=== PATIENT | male | born 1970 | race Caucasian/White ===

== ENCOUNTER 2018-08-16 18:35 | Emergency (ER) | payer OTHER ==
[2018-08-16 18:44] VITALS: RESP 18
[2018-08-16] MEDS ORDERED: ONDANSETRON 4 MG/2 ML VIAL IVP STA (19:03)
[2018-08-16] MEDS ORDERED: SODIUM CHLORIDE 0.9% 1,000 ML IV STA (19:03)
[2018-08-16] MEDS ORDERED: KETOROLAC 30 MG/ML 1 ML VIAL IVP STA (19:03)
--- NOTE | 2018-08-16 19:09 | ED ---
General Adult HPI - General Chief complaint: Abdominal Pain Stated complaint: Abd Pain & Knee Pain Time Seen by Provider: 08/16/18 18:48 Source: patient, RN notes reviewed Mode of arrival: ambulatory Limitations: no limitations - History of Present Illness Initial comments: 48-year-old male with a past medical history of COPD presents to the emergency department for a chief complaint of right flank pain 2 days. Patient states the pain started intermittently that has been constant for the past 8 hours. He describes it as a sharp stabbing pain. He denies any radiating pain into the abdomen or testicle. Patient denies any history of kidney stones. Patient states his urine has been foul-smelling and he has experienced some dysuria. He states he had burning with urination yesterday but today it is feeling much better. He does admit to vomiting twice yesterday, denies vomiting today. He does admit to nausea. He denies any fevers or chills at home. Patient also complaining of left knee pain. He states he hit his knee against his cement deck. Patient states bending the knee makes the pain worse. He states the pain is on the lateral aspect of the left knee. He denies any posterior knee pain.Patient has no other complaints at this time including shortness of breath , chest pain, abdominal pain, nausea or vomiting, headache, or visual changes. - Related Data Home Medications Medication Instructions Recorded Confirmed Acetaminophen [Tylenol] 1,000 mg PO Q4-6H PRN 08/16/18 08/16/18 Ibuprofen [Motrin] 800 mg PO Q8H PRN 08/16/18 08/16/18 Previous Rx's Medication Instructions Recorded Ciprofloxacin HCl [Cipro] 500 mg PO Q12HR 10 Days tablet 08/16/18 Allergies Allergy/AdvReac Type Severity Reaction Status Date / Time No Known Allergies Allergy Verified 08/16/18 19:16 Review of Systems ROS Statement: Those systems with pertinent positive or pertinent negative responses have been documented in the HPI. ROS Other: All systems not noted in ROS Statement are negative. Past Medical History Past Medical History: COPD History of Any Multi-Drug Resistant Organisms: None Reported Additional Past Surgical History / Comment(s): wire mesh in head on R side Past Psychological History: Depression Smoking Status: Current every day smoker Past Alcohol Use History: Occasional Past Drug Use History: None Reported General Exam Limitations: no limitations General appearance: alert, in no apparent distress Head exam: Present: atraumatic, normocephalic, normal inspection Eye exam: Present: normal appearance, PERRL, EOMI. Absent: scleral icterus, conjunctival injection, periorbital swelling ENT exam: Present: normal exam, mucous membranes moist Neck exam: Present: normal inspection, full ROM. Absent: tenderness, meningismus, lymphadenopathy Respiratory exam: Present: normal lung sounds bilaterally. Absent: respiratory distress, wheezes, rales, rhonchi, stridor Cardiovascular Exam: Present: regular rate, normal rhythm, normal heart sounds. Absent: systolic murmur, diastolic murmur, rubs, gallop, clicks GI/Abdominal exam: Present: soft, normal bowel sounds. Absent: distended, tenderness, guarding, rebound, rigid Extremities exam: Present: tenderness (Tenderness noted to the left lateral knee ), normal capillary refill (Capillary refill less than 2 seconds, DP pulse 2+ in the left lower extremity), other (Sensation intact in the left lower extremity). Absent: full ROM (Patient has full extension, 90 flexion of the left knee), joint swelling (No significant edema erythema noted of the left knee. There is minor abrasion noted to the left anterior knee), calf tenderness (No tenderness to the calf, negative Homans sign, no posterior knee tenderness, no increased warmth, erythema, or edema noted of the left lower extremity) Back exam: Present: CVA tenderness (R) (Right CVA tenderness noted). Absent: CVA tenderness (L), vertebral tenderness Neurological exam: Present: alert, oriented X3, CN II-XII intact Psychiatric exam: Present: normal affect, normal mood Course Vital Signs 08/16/18 08/16/18 18:39 22:20 Temperature 98 F 97.9 F Pulse Rate 80 72 Respiratory 18 18 Rate Blood Pressure 130/60 121/86 O2 Sat by Pulse 98 97 Oximetry Medical Decision Making - Medical Decision Making 48-year-old male presents to the emergency department for a chief complaint of right flank pain 2 days. Patient states that the pain was intermittent but has been constant for the past 8 hours. As a sharp stabbing pain and does not radiate into his abdomen or testicle. No history of kidney stones. However patient does state he had foul-smelling urine with dysuria noted yesterday. Patient denies any pain in the prostate CBC and CMP are unremarkable. Urine does show large leukocyte esterase with 36 white cells, no evidence of squamous cells. Patient may have a pyelonephritis. Vitals are within acceptable limits , patient does not meet sepsis criteria. CT of the abdomen and pelvis was ordered which showed no renal stone or obstruction. There is a small right pleural effusion noted. I did discuss this with patient and he will follow up with primary care for this. Patient will be given Cipro to cover for possible pyelonephritis. Patient will follow up with urology for right flank pain. Discussed returning if he has any worsening flank pain. Patient is also complaining of left knee pain after hitting it on his cement porch. X-ray shows a small joint effusion. There is no erythema or edema noted of the left knee. Patient has 90 flexion of the left knee with full extension, neurovascular intact. Did recommend putting on a knee immobilizer at this time is patient does have a small joint effusion but he refuses this and would rather Roman wrap. He will follow up with orthopedics for this. - Lab Data Result diagrams: 08/16/18 19:15 08/16/18 19:15 Lab Results 08/16/18 08/16/18 08/16/18 Range/Units 19:15 19:15 19:15 WBC 9.7 (3.8-10.6) k/uL RBC 4.38 (4.30-5.90) m/uL Hgb 14.3 (13.0-17.5) gm/dL Hct 41.9 (39.0-53.0) % MCV 95.7 (80.0-100.0) fL MCH 32.6 (25.0-35.0) pg MCHC 34.0 (31.0-37.0) g/dL RDW 13.4 (11.5-15.5) % Plt Count 265 (150-450) k/uL Neutrophils % 74 % Lymphocytes % 16 % Monocytes % 5 % Eosinophils % 2 % Basophils % 1 % Neutrophils # 7.2 (1.3-7.7) k/uL Lymphocytes # 1.6 (1.0-4.8) k/uL Monocytes # 0.5 (0-1.0) k/uL Eosinophils # 0.1 (0-0.7) k/uL Basophils # 0.1 (0-0.2) k/uL PT (9.0-12.0) sec INR (<1.2) APTT (22.0-30.0) sec Sodium 136 L (137-145) mmol/L Potassium 4.3 (3.5-5.1) mmol/L Chloride 104 (98-107) mmol/L Carbon Dioxide 22 (22-30) mmol/L Anion Gap 10 mmol/L BUN 15 (9-20) mg/dL Creatinine 1.01 (0.66-1.25) mg/dL Est GFR (CKD-EPI)AfAm >90 (>60 ml/min/1.73 sqM) Est GFR (CKD-EPI)NonAf 87 (>60 ml/min/1.73 sqM) Glucose 116 H (74-99) mg/dL Plasma Lactic Acid Hung (0.7-2.0) mmol/L Calcium 8.9 (8.4-10.2) mg/dL Total Bilirubin 1.1 (0.2-1.3) mg/dL AST 58 (17-59) U/L ALT 58 (21-72) U/L Alkaline Phosphatase 81 (38-126) U/L Total Protein 6.8 (6.3-8.2) g/dL Albumin 3.7 (3.5-5.0) g/dL Urine Color Yellow Urine Appearance Clear (Clear) Urine pH 6.0 (5.0-8.0) Ur Specific [place] 1.014 (1.001-1.035) Urine Protein Trace H (Negative) Urine Glucose (UA) Negative (Negative) Urine Ketones Negative (Negative) Urine Blood Negative (Negative) Urine Nitrite Negative (Negative) Urine Bilirubin Negative (Negative) Urine Urobilinogen <2.0 (<2.0) mg/dL Ur Leukocyte Esterase Large H (Negative) Urine RBC <1 (0-5) /hpf Urine WBC 36 H (0-5) /hpf Urine Bacteria Rare H (None) /hpf Urine Mucus Rare H (None) /hpf 08/16/18 08/16/18 Range/Units 19:15 19:15 WBC (3.8-10.6) k/uL RBC (4.30-5.90) m/uL Hgb (13.0-17.5) gm/dL Hct (39.0-53.0) % MCV (80.0-100.0) fL MCH (25.0-35.0) pg MCHC (31.0-37.0) g/dL RDW (11.5-15.5) % Plt Count (150-450) k/uL Neutrophils % % Lymphocytes % % Monocytes % % Eosinophils % % Basophils % % Neutrophils # (1.3-7.7) k/uL Lymphocytes # (1.0-4.8) k/uL Monocytes # (0-1.0) k/uL Eosinophils # (0-0.7) k/uL Basophils # (0-0.2) k/uL PT 9.4 (9.0-12.0) sec INR 0.8 (<1.2) APTT 26.0 (22.0-30.0) sec Sodium (137-145) mmol/L Potassium (3.5-5.1) mmol/L Chloride (98-107) mmol/L Carbon Dioxide (22-30) mmol/L Anion Gap mmol/L BUN (9-20) mg/dL Creatinine (0.66-1.25) mg/dL Est GFR (CKD-EPI)AfAm (>60 ml/min/1.73 sqM) Est GFR (CKD-EPI)NonAf (>60 ml/min/1.73 sqM) Glucose (74-99) mg/dL Plasma Lactic Acid Hung 1.1 (0.7-2.0) mmol/L Calcium (8.4-10.2) mg/dL Total Bilirubin (0.2-1.3) mg/dL AST (17-59) U/L ALT (21-72) U/L Alkaline Phosphatase (38-126) U/L Total Protein (6.3-8.2) g/dL Albumin (3.5-5.0) g/dL Urine Color Urine Appearance (Clear) Urine pH (5.0-8.0) Ur Specific [place] (1.001-1.035) Urine Protein (Negative) Urine Glucose (UA) (Negative) Urine Ketones (Negative) Urine Blood (Negative) Urine Nitrite (Negative) Urine Bilirubin (Negative) Urine Urobilinogen (<2.0) mg/dL Ur Leukocyte Esterase (Negative) Urine RBC (0-5) /hpf Urine WBC (0-5) /hpf Urine Bacteria (None) /hpf Urine Mucus (None) /hpf Disposition Clinical Impression: Flank pain, Knee pain Disposition: HOME SELF-CARE Condition: Good Instructions: Flank Pain (ED) Additional Instructions: Please follow-up with primary care for pleural effusion. Please follow-up with orthopedics for knee pain, use Roman wrap. rest ice and elevate the knee. Follow- up with urology for flank pain. Take Cipro as directed. Return to the emergency department if you have any worsening symptoms. Prescriptions: Ciprofloxacin HCl [Cipro] 500 mg PO Q12HR 10 Days tablet Is patient prescribed a controlled substance at d/c from ED?: No Referrals: Juma Joshi MD [STAFF PHYSICIAN] - 1-2 days Brian Chase DO [Doctor of Osteopathic Medicine] - 1-2 days Manish De La Vega MD [STAFF PHYSICIAN] - 1-2 days Time of Disposition: 22:54
[2018-08-16 19:28] LABS: Basophils # (A) 0.1 k/uL (0-0.2); Basophils % (A) 1 %; Eosinophils # (A) 0.1 k/uL (0-0.7); Eosinophils % (A) 2 %; HCT 41.9 % (39.0-53.0); HGB 14.3 gm/dL (13.0-17.5); Lymphocytes # (A) 1.6 k/uL (1.0-4.8); Lymphocytes % (A) 16 %; MCH 32.6 pg (25.0-35.0); MCV 95.7 fL (80.0-100.0); Mean Platelet Volume 6.9; Monocytes # (A) 0.5 k/uL (0-1.0); Monocytes % (A) 5 %; Neutrophils # (A) 7.2 k/uL (1.3-7.7); Neutrophils % (A) 74 %; Platelet Count 265 k/uL (150-450); RBC 4.38 m/uL (4.30-5.90); RDW 13.4 % (11.5-15.5); WBC 9.7 k/uL (3.8-10.6)
[2018-08-16 19:37] LABS: ALT 58 U/L (21-72); AST 58 U/L (17-59); Albumin 3.7 g/dL (3.5-5.0); Alkaline Phosphatase 81 U/L (38-126); Anion Gap 10 mmol/L; Blood Urea Nitrogen 15 mg/dL (9-20); Calcium 8.9 mg/dL (8.4-10.2); Carbon Dioxide 22 mmol/L (22-30); Chloride 104 mmol/L (98-107); Glucose 116 mg/dL (74-99); Potassium 4.3 mmol/L (3.5-5.1); Sodium 136 mmol/L (137-145); Total Bilirubin 1.1 mg/dL (0.2-1.3); Total Protein 6.8 g/dL (6.3-8.2)
[2018-08-16 19:38] LABS: Appearance,Urine Clear (Clear); Bacteria,Urine Rare /hpf; Bilirubin,Urine Negative (Negative); Blood,Urine Negative (Negative); Color,Urine Yellow; Glucose,Urine (UA) Negative (Negative); Ketones,Urine Negative (Negative); Leukocyte Esterase,Urine Large (Negative); Mucus,Urine Rare /hpf; Nitrite,Urine Negative (Negative); Protein,Urine Trace (Negative); RBC,Urine <1 /hpf (0-5); Specific Gravity,Urine 1.014 (1.001-1.035); Urobilinogen,Urine <2.0 mg/dL (<2.0); WBC,Urine 36 /hpf (0-5)
[2018-08-16 19:40] LABS: INR 0.8 (<1.2); Prothrombin Time 9.4 sec (9.0-12.0)
--- NOTE | 2018-08-16 19:52 | XR ---
EXAMINATION TYPE: XR knee complete LT DATE OF EXAM: 08/16/2018 COMPARISON: NONE HISTORY: Knee pain TECHNIQUE: 3 views FINDINGS: I see no fracture nor dislocation. Joint spaces are normal. There is probably small knee tawny int effusion. IMPRESSION: Small joint effusion. No fracture seen. Mild soft tissue swelling noted anterior to the p atella.
[2018-08-16] MEDS ORDERED: SODIUM CHLORIDE 0.9% 500 ML 500 ML IV STA (20:05)
[2018-08-16] MEDS ORDERED: cefTRIAXone 2,000 MG in SODIUM CHLORIDE 0.9% 100 ML IVPB STA (20:05)
[2018-08-16] MEDS ORDERED: MORPHINE SULFATE 4 MG/ML SYRINGE IVP STA (20:10)
--- NOTE | 2018-08-16 20:54 | CT ---
EXAMINATION TYPE: CT abdomen pelvis w con DATE OF EXAM: 08/16/2018 COMPARISON: None HISTORY: right flank pain CT DLP: 1267.2 mGycm Automated exposure control for dose reduction was used. TECHNIQUE: Helical acquisition of images was performed from the lung bases through the pelvis. CONTRAST: Performed without Oral Contrast and with IV Contrast, patient injected with 100 mL of Isovue 300. FINDINGS: There is mild subsegmental atelectasis at the lung bases. There is small right pleural effusion. Hear t size is normal. Stomach appears normal. Liver spleen pancreas gallbladder appear normal. Bile ducts are not dilated. There is no adrenal mass. Kidneys show satisfactory contrast opacification. There is no hydronephrosi s. Ureters are not dilated. There is no retroperitoneal adenopathy. Bladder distends smoothly. There is no inguinal hernia. There is no free fluid in the pelvis. There is no mesenteric edema or adenopathy. I see no intestinal wall thickening. Appendix is not defi nitely seen. There is no sign of appendicitis. There is a large posterior disc herniation at L4-5. Th ere is spinal stenosis. There is multilevel lumbar spinal stenosis due to developmentally small canal and disc bulging and facet arthropathy. IMPRESSION: NO RENAL STONE OR OBSTRUCTION. NO SIGN OF APPENDICITIS. LUMBAR SPINAL STENOSIS. SMALL RIGHT PLEURAL E FFUSION.
[2018-08-16 22:22] VITALS: BP 121/86; PULSE 72; TEMP 97.9
[2018-08-16] MEDS ORDERED: HYDROmorphone 0.5 MG/0.5 ML SYRINGE IVP STA (22:36)
== END 2018-08-16 23:42 | disposition home or self-care (01) ==
LOC: EC 18:35
DX: R10.9 Unspecified abdominal pain (principal); M25.562 Pain in left knee; R30.0 Dysuria; J90 Pleural effusion, not elsewhere classified; F17.200 Nicotine dependence, unspecified, uncomplicated
CPT/HCPCS: 36415; 80053; 83605; 85025; 85610; 85730; 81001; 87040; 87086; 87150; 73562; 74177; 99284; 96365; 96375 ×4; 96361; J2270; J2405; J0696; J1885; J1170; Q9967; 87077; 87186

== ENCOUNTER 2018-08-17 11:50 | Emergency (ER) | payer OTHER ==
[2018-08-17 12:02] VITALS: RESP 18; TEMP 97.3
[2018-08-17] MEDS ORDERED: KETOROLAC 30 MG/ML 1 ML VIAL IVP STA (12:37)
[2018-08-17] MEDS ORDERED: SODIUM CHLORIDE 0.9% 1,000 ML IV STA (12:37)
--- NOTE | 2018-08-17 12:43 | ED ---
General Adult HPI - General Chief complaint: Recheck/Abnormal Lab/Rx Stated complaint: revisit, knee pain Time Seen by Provider: 08/17/18 12:27 Source: patient, RN notes reviewed, old records reviewed Mode of arrival: ambulatory Limitations: no limitations - History of Present Illness Initial comments: Patient 48-year-old male presenting to the emergency room today with a chief complaint of both right-sided back pain and left knee pain. Patient does admit that he was seen here last night discharged home. Patient states that he woke up in the middle of night to go to the bathroom his left knee gave out and fell down onto it. Patient states that he's had increased pain to the left knee. He does admit that he's had pain also right side of his back. Patient states that he was told that he had an infection. He has not started the antibiotics as it was just waking up today and has not had it filled. Patient isn't other complaints or symptoms currently. Patient denies any recent fever, chills, shortness of breath, chest pain, abdominal pain, nausea or vomiting, numbness or tingling, headaches or visual changes, or any other complaints. - Related Data Home Medications Medication Instructions Recorded Confirmed Acetaminophen [Tylenol] 1,000 mg PO Q4-6H PRN 08/16/18 08/16/18 Ibuprofen [Motrin] 800 mg PO Q8H PRN 08/16/18 08/16/18 Previous Rx's Medication Instructions Recorded Ciprofloxacin HCl [Cipro] 500 mg PO Q12HR 10 Days tablet 08/16/18 Ibuprofen [Motrin] 800 mg PO Q6HR #30 tab 08/17/18 Allergies Allergy/AdvReac Type Severity Reaction Status Date / Time No Known Allergies Allergy Verified 08/17/18 12:02 Review of Systems ROS Statement: Those systems with pertinent positive or pertinent negative responses have been documented in the HPI. ROS Other: All systems not noted in ROS Statement are negative. Past Medical History Past Medical History: COPD History of Any Multi-Drug Resistant Organisms: None Reported Additional Past Surgical History / Comment(s): wire mesh in head on R side Past Psychological History: Depression Smoking Status: Current every day smoker Past Alcohol Use History: Occasional Past Drug Use History: None Reported General Exam - General Exam Comments Initial Comments: General: The patient is awake and alert, in no distress, and does not appear acutely ill. Eye: Pupils are equal, round and reactive to light, extra-ocular movements are intact. No nystagmus. There is normal conjunctiva bilaterally. No signs of icterus. Ears, nose, mouth and throat: There are moist mucous membranes and no oral lesions. Neck: The neck is supple, there is no tenderness or JVD. Cardiovascular: There is a regular rate and rhythm. No murmur, rub or gallop is appreciated. Respiratory: Lungs are clear to auscultation, respirations are non-labored, breath sounds are equal. No wheezes, stridor, rales, or rhonchi. Gastrointestinal: Soft, non-distended, non-tender abdomen without masses or organomegaly noted. There is no rebound or guarding present. Musculoskeletal: Patient has normal appearance to rest lumbar spine with no step -off deformity. No tenderness midline. Patient does have some mild tenderness right CVA. Patient has normal appearance of left knee. There is some redness in the scabbed area over the anterior aspect. Local tenderness to the lateral aspect of the left knee on exam. Shows good range of motion. Strength 5/5. Sensation intact. Pedal Pulses equal bilaterally 2+. Neurological: A&O x 3. CN II-XII intact, There are no obvious motor or sensory deficits. Coordination appears grossly intact. Speech is normal. Skin: Skin is warm and dry and no rashes or lesions are noted. Psychiatric: Cooperative, appropriate mood & affect, normal judgment. Limitations: no limitations Course Vital Signs 08/17/18 08/17/18 12:00 15:11 Temperature 97.3 F L Pulse Rate 80 76 Respiratory 18 18 Rate Blood Pressure 146/94 136/89 O2 Sat by Pulse 99 98 Oximetry Medical Decision Making - Medical Decision Making Patient's labs been reviewed does show increase in white cells in his urine sample. Patient was seen here last night given 2 g Rocephin. Her CAT scan was obtained yesterday showing no evidence for kidney stones. There was some possible evidence for colitis. Ultrasound obtained today of the kidneys and bladder is unremarkable. Ultrasound of right upper quadrant is negative. Results were discussed with the patient. Case was discussed and seen by [facility] physician Dr. Gama due to see the patient and discussed admission. Patient states he wants to go home. He does have a prescription for Cipro. His advised that should begin this antibiotic. Patient will be discharged home advised close follow-up family doctor over the next 2 days. Patient will sign out AMA. - Lab Data Result diagrams: 08/17/18 12:59 08/17/18 12:59 Lab Results 08/17/18 08/17/18 12 Range/Units 12:59 12:59 12:59 WBC 10.0 (3.8-10.6) k/uL RBC 4.06 L (4.30-5.90) m/uL Hgb 13.1 (13.0-17.5) gm/dL Hct 39.0 (39.0-53.0) % MCV 96.0 (80.0-100.0) fL MCH 32.4 (25.0-35.0) pg MCHC 33.7 (31.0-37.0) g/dL RDW 13.5 (11.5-15.5) % Plt Count 243 (150-450) k/uL Neutrophils % 81 % Lymphocytes % 10 % Monocytes % 5 % Eosinophils % 1 % Basophils % 0 % Neutrophils # 8.0 H (1.3-7.7) k/uL Lymphocytes # 1.0 (1.0-4.8) k/uL Monocytes # 0.5 (0-1.0) k/uL Eosinophils # 0.1 (0-0.7) k/uL Basophils # 0.0 (0-0.2) k/uL Sodium 138 (137-145) mmol/L Potassium 4.4 (3.5-5.1) mmol/L Chloride 108 H (98-107) mmol/L Carbon Dioxide 23 (22-30) mmol/L Anion Gap 7 mmol/L BUN 12 (9-20) mg/dL Creatinine 0.88 (0.66-1.25) mg/dL Est GFR (CKD-EPI)AfAm >90 (>60 ml/min/1.73 sqM) Est GFR (CKD-EPI)NonAf >90 (>60 ml/min/1.73 sqM) Glucose 111 H (74-99) mg/dL Calcium 8.6 (8.4-10.2) mg/dL Total Bilirubin 0.9 (0.2-1.3) mg/dL AST 84 H (17-59) U/L ALT 77 H (21-72) U/L Alkaline Phosphatase 92 (38-126) U/L Total Protein 6.0 L (6.3-8.2) g/dL Albumin 3.0 L (3.5-5.0) g/dL Amylase (30-110) U/L Lipase (23-300) U/L Urine Color Yellow Urine Appearance Clear (Clear) Urine pH 6.0 (5.0-8.0) Ur Specific [place] 1.025 (1.001-1.035) Urine Protein 1+ H (Negative) Urine Glucose (UA) Negative (Negative) Urine Ketones Negative (Negative) Urine Blood Negative (Negative) Urine Nitrite Negative (Negative) Urine Bilirubin Negative (Negative) Urine Urobilinogen <2.0 (<2.0) mg/dL Ur Leukocyte Esterase Large H (Negative) Urine RBC 5 (0-5) /hpf Urine WBC 80 H (0-5) /hpf Urine Mucus Rare H (None) /hpf 12/24/18 Range/Units 12:59 WBC (3.8-10.6) k/uL RBC (4.30-5.90) m/uL Hgb (13.0-17.5) gm/dL Hct (39.0-53.0) % MCV (80.0-100.0) fL MCH (25.0-35.0) pg MCHC (31.0-37.0) g/dL RDW (11.5-15.5) % Plt Count (150-450) k/uL Neutrophils % % Lymphocytes % % Monocytes % % Eosinophils % % Basophils % % Neutrophils # (1.3-7.7) k/uL Lymphocytes # (1.0-4.8) k/uL Monocytes # (0-1.0) k/uL Eosinophils # (0-0.7) k/uL Basophils # (0-0.2) k/uL Sodium (137-145) mmol/L Potassium (3.5-5.1) mmol/L Chloride (98-107) mmol/L Carbon Dioxide (22-30) mmol/L Anion Gap mmol/L BUN (9-20) mg/dL Creatinine (0.66-1.25) mg/dL Est GFR (CKD-EPI)AfAm (>60 ml/min/1.73 sqM) Est GFR (CKD-EPI)NonAf (>60 ml/min/1.73 sqM) Glucose (74-99) mg/dL Calcium (8.4-10.2) mg/dL Total Bilirubin (0.2-1.3) mg/dL AST (17-59) U/L ALT (21-72) U/L Alkaline Phosphatase (38-126) U/L Total Protein (6.3-8.2) g/dL Albumin (3.5-5.0) g/dL Amylase 35 (30-110) U/L Lipase 65 (23-300) U/L Urine Color Urine Appearance (Clear) Urine pH (5.0-8.0) Ur Specific [place] (1.001-1.035) Urine Protein (Negative) Urine Glucose (UA) (Negative) Urine Ketones (Negative) Urine Blood (Negative) Urine Nitrite (Negative) Urine Bilirubin (Negative) Urine Urobilinogen (<2.0) mg/dL Ur Leukocyte Esterase (Negative) Urine RBC (0-5) /hpf Urine WBC (0-5) /hpf Urine Mucus (None) /hpf Disposition Clinical Impression: Pyelonephritis Disposition: HOME SELF-CARE Condition: Good Instructions: Urinary Tract Infection in Men (ED) Additional Instructions: Please use previously prescribed antibiotic. Please follow-up with family doctor in the next 2 days of symptoms have not improved. Please return to emergency room if the symptoms increase or worsen or for any other concerns. Prescriptions: Ibuprofen [Motrin] 800 mg PO Q6HR #30 tab Is patient prescribed a controlled substance at d/c from ED?: No Referrals: None,Stated [Primary Care Provider] - 1-2 days Anders Baldwin PAC [PHYSICIAN SENIOR PLANNING MANAGER] - 1-2 days Keo Saede MD [REFERRING] - 1-2 days Time of Disposition: 16:27
[2018-08-17 13:14] LABS: Basophils % (A) 0 %; Eosinophils # (A) 0.1 k/uL (0-0.7); Eosinophils % (A) 1 %; HGB 13.1 gm/dL (13.0-17.5); Lymphocytes % (A) 10 %; MCH 32.4 pg (25.0-35.0); MCHC 33.7 g/dL (31.0-37.0); Mean Platelet Volume 6.8; Monocytes # (A) 0.5 k/uL (0-1.0); Monocytes % (A) 5 %; Neutrophils % (A) 81 %; Platelet Count 243 k/uL (150-450); RBC 4.06 m/uL (4.30-5.90); RDW 13.5 % (11.5-15.5)
[2018-08-17 13:22] LABS: Appearance,Urine Clear (Clear); Bilirubin,Urine Negative (Negative); Blood,Urine Negative (Negative); Color,Urine Yellow; Glucose,Urine (UA) Negative (Negative); Ketones,Urine Negative (Negative); Leukocyte Esterase,Urine Large (Negative); Mucus,Urine Rare /hpf; Nitrite,Urine Negative (Negative); Protein,Urine 1+ (Negative); RBC,Urine 5 /hpf (0-5); Specific Gravity,Urine 1.025 (1.001-1.035); Urobilinogen,Urine <2.0 mg/dL (<2.0)
[2018-08-17 13:27] LABS: ALT 77 U/L (21-72); AST 84 U/L (17-59); Alkaline Phosphatase 92 U/L (38-126); Anion Gap 7 mmol/L; Blood Urea Nitrogen 12 mg/dL (9-20); Calcium 8.6 mg/dL (8.4-10.2); Carbon Dioxide 23 mmol/L (22-30); Chloride 108 mmol/L (98-107); Glucose 111 mg/dL (74-99); Potassium 4.4 mmol/L (3.5-5.1); Sodium 138 mmol/L (137-145); Total Bilirubin 0.9 mg/dL (0.2-1.3)
[2018-08-17 14:26] LABS: Amylase 35 U/L (30-110); Lipase 65 U/L (23-300)
--- NOTE | 2018-08-17 15:35 | US ---
EXAMINATION TYPE: US abdomen limited DATE OF EXAM: 08/17/2018 COMPARISON: Correlation CT 08/16/2018 CLINICAL HISTORY: 48-year-old male Pain. Right flank pain TECHNIQUE: Multiple sonographic images of the right upper quadrant are obtained. FINDINGS: EXAM MEASUREMENTS: Liver Length: 15.1 cm Gallbladder Wall: 0.2 cm CBD: 0.4 cm Right Kidney: not measured as dedicated renal US ordered Pancreas: not visualized due to midline bowel gas Liver: Homogeneous appearance without focal lesion. Gallbladder: No abnormal distention, wall thickening, pericholecystic fluid, or shadowing calculi. Evidence for sonographic Muller's sign: No CBD: wnl IMPRESSION: Suboptimal visualization of the pancreas. The right kidney is assessed on the separate ex am of today. Otherwise, unremarkable sonographic examination of the right upper quadrant.
--- NOTE | 2018-08-17 15:40 | US ---
EXAMINATION TYPE: US kidneys/renal and bladder DATE OF EXAM: 08/17/2018 COMPARISON: Correlation CT 08/16/2018 CLINICAL HISTORY: 48-year-old male Pain. Right flank pain TECHNIQUE: Multiple sonographic images of the kidneys and bladder are obtained. FINDINGS: EXAM MEASUREMENTS: Right Kidney: 10.7 x 5.4 x 5.9 cm Left Kidney: 12.7 x 5.2 x 6.1 cm No hydronephrosis on either side. Bladder: wnl Bilateral Jets seen: No IMPRESSION: 1. The recent CT of 08/16/2018 is reviewed and shows what appears to be severe circumferential wall t hickening of the cecum and lower ascending colon. Correlate for nonspecific moderate to severe coliti s or underlying neoplasm. Follow-up colonoscopy after management of patient's acute symptoms. 2. No hydronephrosis.
[2018-08-17] MEDS ORDERED: MORPHINE SULFATE 4 MG/ML SYRINGE IV STA (15:57)
[2018-08-17 18:01] VITALS: BP 124/65; PULSE 74
== END 2018-08-17 18:00 | disposition home or self-care (01) ==
LOC: EC 11:50
DX: N12 Tubulo-interstitial nephritis, not specified as acute or chronic (principal); R23.8 Other skin changes; M25.562 Pain in left knee; F17.200 Nicotine dependence, unspecified, uncomplicated; W01.0XXA Fall on same level from slipping, tripping and stumbling without subsequent striking against object, initial encounter
CPT/HCPCS: 36415; 80053; 82150; 83690; 85025; 81001; 76705; 76770; 99284; 96365; 96375 ×2; 96361 ×2; L1830; J2270; J0696; J1885

== ENCOUNTER 2018-08-17 23:33 | Inpatient (IN) | payer OTHER ==
[2018-08-18] MEDS ORDERED: MORPHINE SULFATE 4 MG/ML SYRINGE IVP STA (00:36)
[2018-08-18] MEDS ORDERED: VANCOMYCIN IV PER PHARMACY 1 EACH MISC MISCELLANE PRN (00:36)
--- NOTE | 2018-08-18 00:38 | ED ---
General Adult HPI - General Source: patient, RN notes reviewed Mode of arrival: wheelchair Limitations: no limitations <Emeterio Shore P - Last Filed: 08/18/18 01:39> <Marta Adam P - Last Filed: 08/19/18 04:03> - General Chief complaint: Extremity Problem,Nontraumatic Stated complaint: Back/Leg Pain Time Seen by Provider: 08/17/18 23:54 - History of Present Illness Initial comments: 48-year-old male presents to the emergency department with multiple complaints. Patient states his right flank pain is worsening. This has been ongoing for 3 days. He describes as a sharp pain. He denies any chest pain. He denies any radiating pain. Patient did have burning with urination as well as foul- smelling urine as well. Patient admits to nausea but denies vomiting today. Patient also presents for left knee pain. He states he hit his knee against a cement deck 4 days ago. He states that time he had left knee pain with difficulty ambulating on this. He states that the pain is on the lateral aspect of the knee. Denies any posterior knee pain. Patient denies fevers or chills. Patient has no other complaints at this time including shortness of breath, chest pain, abdominal pain, nausea or vomiting, headache, or visual changes. (Emeterio Shore) - Related Data Home Medications Medication Instructions Recorded Confirmed No Known Home Medications 08/18/18 08/18/18 Allergies Allergy/AdvReac Type Severity Reaction Status Date / Time No Known Allergies Allergy Verified 08/18/18 08:08 Review of Systems ROS Other: All systems not noted in ROS Statement are negative. <Emeterio Shore - Last Filed: 08/18/18 01:39> ROS Other: All systems not noted in ROS Statement are negative. <Marta Adam P - Last Filed: 08/19/18 04:03> ROS Statement: Those systems with pertinent positive or pertinent negative responses have been documented in the HPI. Past Medical History Past Medical History: COPD History of Any Multi-Drug Resistant Organisms: None Reported Additional Past Surgical History / Comment(s): wire mesh in head on R side Past Psychological History: Depression Smoking Status: Current every day smoker Past Alcohol Use History: Occasional Past Drug Use History: None Reported <Silviano,Emeterio P - Last Filed: 08/18/18 01:39> - Past Family History Father Family Medical History: COPD, Myocardial Infarction ([place]) Mother Family Medical History: No Reported History <Marta Adam P - Last Filed: 08/19/18 04:03> General Exam Limitations: no limitations General appearance: alert, in no apparent distress Head exam: Present: atraumatic, normocephalic, normal inspection Eye exam: Present: normal appearance, PERRL, EOMI. Absent: scleral icterus, conjunctival injection, periorbital swelling ENT exam: Present: normal exam, mucous membranes moist Neck exam: Present: normal inspection, full ROM. Absent: tenderness, meningismus, lymphadenopathy Respiratory exam: Present: normal lung sounds bilaterally. Absent: respiratory distress, wheezes, rales, rhonchi, stridor Cardiovascular Exam: Present: regular rate, normal rhythm, normal heart sounds. Absent: systolic murmur, diastolic murmur, rubs, gallop, clicks GI/Abdominal exam: Present: soft, normal bowel sounds. Absent: distended, tenderness (Significant tenderness in the abdomen), guarding, rebound, rigid Extremities exam: Present: tenderness (Tenderness to palpation of the lateral left knee), normal capillary refill (Capillary refill less than 2 seconds and DP pulse 2+ in the left lower extremity), joint swelling (Minimal edema noted on the left knee, no excessive erythema or increased warmth), other (Sensation intact in the left lower extremity). Absent: full ROM (Patient has about 20 flexion of the left knee) Back exam: Present: CVA tenderness (R) (Patient does have right CVA tenderness) . Absent: CVA tenderness (L) Neurological exam: Present: alert, oriented X3, CN II-XII intact Psychiatric exam: Present: normal affect, normal mood <Emeterio Shore P - Last Filed: 08/18/18 01:39> Vital Signs 08/17/18 08/18/18 08/18/18 23:36 01:24 01:30 Temperature 97.9 F 98 F 98.4 F Pulse Rate 88 84 Pulse Rate [ 80 Pulse Oximetery ] Respiratory 18 18 18 Rate Blood Pressure 135/87 137/77 Blood Pressure 128/69 [Left Arm] O2 Sat by Pulse 100 98 93 L Oximetry EKG Findings - EKG Comments: EKG Findings:: Normal sinus rhythm, ventricular rate 89, MI interval 134, QTC 394 <Emeterio Shore P - Last Filed: 08/18/18 01:39> Medical Decision Making - Lab Data Result diagrams: 08/18/18 00:30 08/18/18 00:30 <Emeterio Shore P - Last Filed: 08/18/18 01:39> - Lab Data Result diagrams: 08/18/18 00:30 08/18/18 00:30 <Marta Adam P - Last Filed: 08/19/18 04:03> - Medical Decision Making 48-year-old male with a past medical history of COPD presents to the emergency department for multiple complaints. Patient has been seen here twice in the past 2 days. He left AMA earlier today. On exam patient does have right CVA tenderness that seems to be worsening. He did not fill his prescription for antibiotic. He did receive 1 g of Rocephin here earlier today. Patient is sitting on his left knee is worsening as well. He injured his knee 4 days ago after hitting it against a cement back. Patient states it is now painful to bend. There is some minimal swelling, patient has about [address] adam also visualized the knee. X-ray of the left knee shows a small joint effusion with mild soft tissue swelling noted to the anterior patella. This was done 2 days ago. CBC unremarkable. CMP unremarkable as well. Patient does not meet sepsis criteria. Patient's previous blood culture did come back positive for staph aureus. This was done 2 days ago. Patient's report of the ultrasound of the abdomen done yesterday did show severe colitis which was apparently visualized on CAT scan from 2 days ago. At this time patient will be treated with Rocephin and Flagyl to cover colitis as well as staph aureus. Patient's knee does not need to be tapped at this time as he has a possible blood infection that will be treated with IV antibiotics regardless. No risk factors for MRSA. Patient will be admitted for IV antibiotics. blood cultures were repeated. (Emeterio Shore) I personally saw and examined the patient. I reviewed and agree with the mid- level provider findings including all diagnostic interpretations and treatment plans as written unless otherwise stated. I was present for lester portions of any procedures performed. Patient with multiple complaints, multiple workups in the past 2 days. Concern for urinary tract infection for which she did not start his antibiotics as well as possible colitis on CT. In addition the patient does have progressively worsening swelling of his left knee and did have positive blood cultures which revealed staph aureus. At this time he do feel the patient warrants IV antibiotics and repeat blood cultures as the staph aureus could be a skin contaminant. I evaluated the patient's left knee, there was some swelling, however there is no erythema or effusion, patient has good range of motion and very minimal concern for septic joint. Considering the presence of possible bacteremia I do not feel there is a benefit to a joint aspiration at this time as the patient will be receiving empiric antibiotics. Patient will be admitted for the positive blood cultures positive urinalysis as well as possible colitis. Orthopedics will be consulted to reevaluate the left knee. (Marta Adam) - Lab Data Lab Results 08/18/18 08/18/18 08/18/18 Range/Units 00:30 00:30 00:30 WBC 9.6 (3.8-10.6) k/uL RBC 4.23 L (4.30-5.90) m/uL Hgb 13.8 (13.0-17.5) gm/dL Hct 41.3 (39.0-53.0) % MCV 97.6 (80.0-100.0) fL MCH 32.5 (25.0-35.0) pg MCHC 33.3 (31.0-37.0) g/dL RDW 13.4 (11.5-15.5) % Plt Count 271 (150-450) k/uL Neutrophils % 77 % Lymphocytes % 14 % Monocytes % 5 % Eosinophils % 2 % Basophils % 1 % Neutrophils # 7.4 (1.3-7.7) k/uL Lymphocytes # 1.3 (1.0-4.8) k/uL Monocytes # 0.5 (0-1.0) k/uL Eosinophils # 0.2 (0-0.7) k/uL Basophils # 0.1 (0-0.2) k/uL Sodium 138 (137-145) mmol/L Potassium 4.3 (3.5-5.1) mmol/L Chloride 104 (98-107) mmol/L Carbon Dioxide 26 (22-30) mmol/L Anion Gap 8 mmol/L BUN 12 (9-20) mg/dL Creatinine 1.17 (0.66-1.25) mg/dL Est GFR (CKD-EPI)AfAm 84 (>60 ml/min/1.73 sqM) Est GFR (CKD-EPI)NonAf 72 (>60 ml/min/1.73 sqM) Glucose 106 H (74-99) mg/dL Plasma Lactic Acid Hung 1.0 (0.7-2.0) mmol/L Calcium 8.7 (8.4-10.2) mg/dL Total Bilirubin 0.8 (0.2-1.3) mg/dL AST 72 H (17-59) U/L ALT 86 H (21-72) U/L Alkaline Phosphatase 97 (38-126) U/L Total Protein 7.4 (6.3-8.2) g/dL Albumin 3.9 (3.5-5.0) g/dL Urine Color Urine Appearance (Clear) Urine pH (5.0-8.0) Ur Specific Preston (1.001-1.035) Urine Protein (Negative) Urine Glucose (UA) (Negative) Urine Ketones (Negative) Urine Blood (Negative) Urine Nitrite (Negative) Urine Bilirubin (Negative) Urine Urobilinogen (<2.0) mg/dL Ur Leukocyte Esterase (Negative) Urine RBC (0-5) /hpf Urine WBC (0-5) /hpf Urine Mucus (None) /hpf 08/18/18 Range/Units 00:30 WBC (3.8-10.6) k/uL RBC (4.30-5.90) m/uL Hgb (13.0-17.5) gm/dL Hct (39.0-53.0) % MCV (80.0-100.0) fL MCH (25.0-35.0) pg MCHC (31.0-37.0) g/dL RDW (11.5-15.5) % Plt Count (150-450) k/uL Neutrophils % % Lymphocytes % % Monocytes % % Eosinophils % % Basophils % % Neutrophils # (1.3-7.7) k/uL Lymphocytes # (1.0-4.8) k/uL Monocytes # (0-1.0) k/uL Eosinophils # (0-0.7) k/uL Basophils # (0-0.2) k/uL Sodium (137-145) mmol/L Potassium (3.5-5.1) mmol/L Chloride (98-107) mmol/L Carbon Dioxide (22-30) mmol/L Anion Gap mmol/L BUN (9-20) mg/dL Creatinine (0.66-1.25) mg/dL Est GFR (CKD-EPI)AfAm (>60 ml/min/1.73 sqM) Est GFR (CKD-EPI)NonAf (>60 ml/min/1.73 sqM) Glucose (74-99) mg/dL Plasma Lactic Acid Hung (0.7-2.0) mmol/L Calcium (8.4-10.2) mg/dL Total Bilirubin (0.2-1.3) mg/dL AST (17-59) U/L ALT (21-72) U/L Alkaline Phosphatase (38-126) U/L Total Protein (6.3-8.2) g/dL Albumin (3.5-5.0) g/dL Urine Color Yellow Urine Appearance Clear (Clear) Urine pH 6.0 (5.0-8.0) Ur Specific Preston 1.015 (1.001-1.035) Urine Protein Trace H (Negative) Urine Glucose (UA) Negative (Negative) Urine Ketones Negative (Negative) Urine Blood Negative (Negative) Urine Nitrite Negative (Negative) Urine Bilirubin Negative (Negative) Urine Urobilinogen <2.0 (<2.0) mg/dL Ur Leukocyte Esterase Moderate H (Negative) Urine RBC 2 (0-5) /hpf Urine WBC 50 H (0-5) /hpf Urine Mucus Rare H (None) /hpf Disposition Time of Disposition: 01:23 <Emeterio Shore P - Last Filed: 08/18/18 01:39> <Marta Adam P - Last Filed: 08/19/18 04:03> Clinical Impression: Knee pain, left, Colitis, Positive blood culture, Flank pain Disposition: ADMITTED IP TO THIS [facility] Condition: Good
[2018-08-18] MEDS ORDERED: metroNIDAZOLE-NS PMX 500 MG in SALINE 1 100ML.BAG IVPB STA (00:43)
[2018-08-18] MEDS: SODIUM CHLORIDE 0.9% 500 ML 500 ML IV SCH ×2 (00:45→01:21)
[2018-08-18 00:51] LABS: Appearance,Urine Clear (Clear); Bilirubin,Urine Negative (Negative); Blood,Urine Negative (Negative); Color,Urine Yellow; Glucose,Urine (UA) Negative (Negative); Ketones,Urine Negative (Negative); Leukocyte Esterase,Urine Moderate (Negative); Mucus,Urine Rare /hpf; Nitrite,Urine Negative (Negative); Protein,Urine Trace (Negative); RBC,Urine 2 /hpf (0-5); Specific Gravity,Urine 1.015 (1.001-1.035); Urobilinogen,Urine <2.0 mg/dL (<2.0); WBC,Urine 50 /hpf (0-5)
[2018-08-18 00:57] LABS: Basophils # (A) 0.1 k/uL (0-0.2); Basophils % (A) 1 %; Eosinophils # (A) 0.2 k/uL (0-0.7); Eosinophils % (A) 2 %; HCT 41.3 % (39.0-53.0); HGB 13.8 gm/dL (13.0-17.5); Lymphocytes # (A) 1.3 k/uL (1.0-4.8); Lymphocytes % (A) 14 %; MCH 32.5 pg (25.0-35.0); MCHC 33.3 g/dL (31.0-37.0); MCV 97.6 fL (80.0-100.0); Monocytes # (A) 0.5 k/uL (0-1.0); Monocytes % (A) 5 %; Neutrophils # (A) 7.4 k/uL (1.3-7.7); Neutrophils % (A) 77 %; Platelet Count 271 k/uL (150-450); RBC 4.23 m/uL (4.30-5.90); RDW 13.4 % (11.5-15.5); WBC 9.6 k/uL (3.8-10.6)
[2018-08-18] MEDS ORDERED: VANCOMYCIN 1,500 MG in SODIUM CHLORIDE 0.9% 250 ML IVPB ONE (01:00)
[2018-08-18 01:02] LABS: Albumin 3.9 g/dL (3.5-5.0); Calcium 8.7 mg/dL (8.4-10.2); Potassium 4.3 mmol/L (3.5-5.1); Total Bilirubin 0.8 mg/dL (0.2-1.3); Total Protein 7.4 g/dL (6.3-8.2)
[2018-08-18] MEDS ORDERED: MORPHINE SULFATE 4 MG/ML SYRINGE IV PRN (01:35)
[2018-08-18] MEDS ORDERED: NALOXONE 0.4 MG/ML 1 ML VIAL IV PRN (01:35)
[2018-08-18] MEDS: KETOROLAC 30 MG/ML 1 ML VIAL IVP PRN ×4 (02:11→18:19)
[2018-08-18 02:48] VITALS: BMI 32.5
[2018-08-18] MEDS: SODIUM CHLORIDE 0.9% 1,000 ML IV SCH ×3 (03:19→23:40)
[2018-08-18] MEDS: VANCOMYCIN 1,750 MG in SODIUM CHLORIDE 0.9% 500 ML 500 ML IVPB SCH (12:02)
[2018-08-18] MEDS: MORPHINE SULFATE 4 MG/ML SYRINGE IV PRN ×3 (12:03→20:50)
--- NOTE | 2018-08-18 12:03 | P.CNOR ---
History of Present Illness - HPI Consult date: 08/18/18 Consult reason: other (Left knee pain) History of present illness: Patient's a 48-year-old male who came to [place] from [place] to visit his family for the holidays. Over the past few days he has been having significant pain at his right flank and toward his left knee. He says that he presented initially to the hospital on Friday a couple days ago and was having severe pain in his left knee and in his right flank. He was given some medicine and went home but was unable to tolerate the pain and presented again overnight last night. He denies any fevers or chills. He denies any chest pain or shortness breath anteriorly he is having significant pain at his right side of his back at the mid back and toward the right flank. He is complaining of some burning when he urinates. He is not complaining of pain when he coughs. He has been having pain in his left knee. He says that he is able to move his knee around but when he flexes it all the way back that he has significant tightness and has pain at the posterior aspect of his knee. He is able weight-bear and ambulate but has limped at the left side due to the pain in his knee. He denies any specific injury to his knee. He denies any weakness in his lower extremities. Denies any changes in bowel function. Review of Systems As per HPI. He denies any recent fevers. Denies any chest pain. Past Medical History Past Medical History: COPD History of Any Multi-Drug Resistant Organisms: None Reported Additional Past Surgical History / Comment(s): wire mesh in head on R side Past Psychological History: Depression Smoking Status: Current every day smoker Past Alcohol Use History: Occasional Past Drug Use History: None Reported - Past Family History Father Family Medical History: COPD, Myocardial Infarction ([place]) Mother Family Medical History: No Reported History Medications and Allergies Home Medications Medication Instructions Recorded Confirmed Type No Known Home Medications 08/18/18 08/18/18 History Allergies Allergy/AdvReac Type Severity Reaction Status Date / Time No Known Allergies Allergy Verified 08/18/18 08:08 Physical Examination Osteopathic Statement: *. No significant issues noted on an osteopathic structural exam other than those noted in the History and Physical/Consult. - Knee left Appearance: other (There is a small superficial abrasion at the anterior knee which appears to be stable and clear. There is no obvious effusion. There is no erythema. He has full extension and can flex to 90. He has pain and tightness posteriorly when he tries to flex beyond 90. There is no point tenderness along the knee. There is no obvious instability. There is negative Tamera's. There is no specific joint line tenderness his thigh and calf are soft and nontender. There is no erythema. He is able weight-bear without significant pain. He has sustained dorsal plantar flexion and EHL intact.) Results - Labs Labs: Abnormal Lab Results - Last 24 Hours (Table) 08/18/18 08/18/18 08/18/18 Range/Units 00:30 00:30 00:30 RBC 4.23 L (4.30-5.90) m/uL Glucose 106 H (74-99) mg/dL AST 72 H (17-59) U/L ALT 86 H (21-72) U/L Urine Protein Trace H (Negative) Ur Leukocyte Esterase Moderate H (Negative) Urine WBC 50 H (0-5) /hpf Urine Mucus Rare H (None) /hpf Microbiology - Last 24 Hours (Table) 08/18/18 00:30 Urine Culture - Preliminary Urine,Voided H & H 08/18/18 Range/Units 00:30 Hgb 13.8 (13.0-17.5) gm/dL Hct 41.3 (39.0-53.0) % Result Diagrams: 08/18/18 00:30 08/18/18 00:30 - Diagnostic results Knee x-ray: report reviewed, image reviewed (X-rays show no obvious fracture or dislocation. Bone quality appears appropriate for his age. There is no bony erosions. There may be some mild soft tissue swelling.) Assessment and Plan Assessment: Left knee pain and likely strain with small effusion. No evidence of septic arthritis of left knee. No evidence of fracture at the left knee or instability Significant right flank pain pain Plan: Left knee pain and likely strain with small effusion. No evidence of septic arthritis of left knee. No evidence of fracture at the left knee or instability Significant right flank pain pain In regards to the patient's left knee there does not appear to be gross infection. He is able to move his knee and is tolerating weightbearing and is not having any pain with passive stretch. He has some soreness posteriorly and likely has a small effusion causing some pressure in his knee with hyperflexion. I think it is okay for him to weight-bear. He has some strain in his posterior knee but no evidence of instability. I do not think he needs bracing or aspiration at this point. With his uncertain diagnosis I would hold off on any injection for his knee currently. I do not plan to aspirate his knee at this point either. I think it is okay for him to weight-bear as tolerated and from an orthopedic standpoint to follow-up essentially as needed. I answered his questions to best my ability and he is agreeable. He is having severe pain at his right flank currently. His computed tomography scan and ultrasound from Friday did not show any obvious stone or pathology but his presentation is that of either pyelonephritis or kidney stone. He is working with medicine and continue further workup for this. They will continue pain management for this as well.
[2018-08-18] MEDS: IPRATROPIUM-ALBUTEROL 3 ML NEB INHALATION SCH ×3 (12:08→20:32)
[2018-08-18] MEDS ORDERED: metroNIDAZOLE-NS PMX 500 MG in SALINE 1 100ML.BAG IVPB SCH ×2 (12:15→14:00)
--- NOTE | 2018-08-18 12:23 | P.HPIM ---
History of Present Illness 48-year-old gentleman came in with compensative fever and right flank pain severe sharp 10 x 10 pain along with dysuria which improved now all his symptoms started about 3 days ago patient was seen in ER subsequently was discharged from ER her left ear patient at that time underwent workup with the ultrasound of the kidney and gallbladder which did not show any significant abnormality CAT scan of the abdomen was also done which showed some nonspecific colitis in the cecal area. Patient is febrile does have fevers here today. the urine cultures were obtained. I did review the blood cultures patient had positive blood cultures with staph aureus. Patient was also started on vancomycin. Patient is presently on Rocephin metronidazole and vancomycin. Patient also had a recent injury to the left knee for which arthritic surgery evaluated no further intervention is being planned at this time that is maybe a mild effusion there is no septic arthritis. Review of Systems REVIEW OF SYSTEMS: CONSTITUTIONAL: No fever, no malaise, no fatigue. HEENT: No recent visual problems or hearing problems. Denied any sore throat. CARDIOVASCULAR: No chest pain, orthopnea, PND, no palpitations, no syncope. PULMONARY: No shortness of breath, no cough, no hemoptysis. GASTROINTESTINAL: No diarrhea, no nausea, no vomiting, NEUROLOGICAL: No headaches, no weakness, no numbness. HEMATOLOGICAL: Denies any bleeding or petechiae. GENITOURINARY: As mentioned in HPI MUSCULOSKELETAL/RHEUMATOLOGICAL: Denies any joint pain, swelling, or any muscle pain. ENDOCRINE: Denies any polyuria or polydipsia. The rest of the 14-point review of systems is negative. Past Medical History Past Medical History: COPD History of Any Multi-Drug Resistant Organisms: None Reported Additional Past Surgical History / Comment(s): wire mesh in head on R side Past Psychological History: Depression Smoking Status: Current every day smoker Past Alcohol Use History: Occasional Past Drug Use History: None Reported - Past Family History Father Family Medical History: COPD, Myocardial Infarction ([place]) Mother Family Medical History: No Reported History Medications and Allergies Home Medications Medication Instructions Recorded Confirmed Type No Known Home Medications 08/18/18 08/18/18 History Allergies Allergy/AdvReac Type Severity Reaction Status Date / Time No Known Allergies Allergy Verified 08/18/18 08:08 Physical Exam Vitals: Vital Signs Temp Pulse Pulse Resp BP BP Pulse Ox 12/25/18 12:08 80 08/18/18 08:02 100.6 F H 88 16 160/90 95 08/18/18 02:30 98.9 F 87 16 131/73 96 08/18/18 01:24 98 F 84 18 137/77 98 08/17/18 23:36 97.9 F 88 18 135/87 100 Intake and Output 08/17/18 08/18/18 08/18/18 22:59 06:59 14:59 Other: # Voids 1 Weight 99.79 kg PHYSICAL EXAMINATION: GENERAL: The patient is alert and oriented x3, Well developed, well nourished. Obese agents some distress because of pain HEENT: Pupils are round and equally reacting to light. EOMI. No scleral icterus. No conjunctival pallor. Normocephalic, atraumatic. No pharyngeal erythema. No thyromegaly. CARDIOVASCULAR: S1 and S2 present. No murmurs, rubs, or gallops. PULMONARY: A few expiratory wheezing decreased air entry into bilateral lung wills ABDOMEN: Soft, and does have coarse total angle tenderness, nondistended, normoactive bowel sounds. No palpable organomegaly. MUSCULOSKELETAL: Knee swallowing and some stiffness limited movements of the right knee because of the stiffness no significant pain or tenderness local is of temperature EXTREMITIES: No cyanosis, clubbing, or pedal edema. NEUROLOGICAL: Gross neurological examination did not reveal any focal deficits. SKIN: No rashes. Results CBC & Chem 7: 08/18/18 00:30 08/18/18 00:30 Labs: Abnormal Lab Results - Last 24 Hours (Table) 08/18/18 08/18/18 08/18/18 Range/Units 00:30 00:30 00:30 RBC 4.23 L (4.30-5.90) m/uL Glucose 106 H (74-99) mg/dL AST 72 H (17-59) U/L ALT 86 H (21-72) U/L Urine Protein Trace H (Negative) Ur Leukocyte Esterase Moderate H (Negative) Urine WBC 50 H (0-5) /hpf Urine Mucus Rare H (None) /hpf Microbiology - Last 24 Hours (Table) 08/18/18 00:30 Urine Culture - Preliminary Urine,Voided Thrombosis Risk Factor Assmnt - Choose All That Apply Any of the Below Risk Factors Present?: Yes Each Factor Represents 1 point: Abnormal pulmonary function (COPD), Age 41-60 years Thrombosis Risk Factor Assessment Total Risk Factor Score: 2 Thrombosis Risk Factor Assessment Level: Low Risk Assessment and Plan Plan: Severe sepsis: Etiology of sepsis is multifactorial. Patient has positive CVA with the dysuria flank pain although there is no hydronephrosis on the CAT scan or ultrasound. Patient probably has urinary tract infection continue with Rocephin. Patient is also found to be bacteremic with staph aureus staph aureus bacteremia source is not clear, will consult infectious disease continue with vancomycin and repeat blood cultures today and tomorrow patient had fever last night. And also is found to have incidental finding of colitis in the cecal area as of which metronidazole is being continued. -Possible infectious colitis the right cecal area. -Bacteremia with staph aureus -Right knee effusion and stiffness secondary to traumatic injury possibility is low for septic arthritis -COPD with minimal exacerbation patient will be Started on Symbicort albuterol ipratropium treatments nicotine cessation counseling was provided -Morbid obesity She will need pharmacologic GI and DVT prophylaxis.
[2018-08-18] MEDS ORDERED: VANCOMYCIN 1,500 MG in SODIUM CHLORIDE 0.9% 250 ML IVPB SCH (14:00)
[2018-08-18] MEDS: HEPARIN SODIUM,PORCINE 5,000 UNIT/ML 1 ML VIAL SQ SCH (15:17)
[2018-08-18] MEDS: SYMBICORT 160-4.5 MCG INHALER INHALATION SCH (20:32)
[2018-08-18] MEDS: FAMOTIDINE 20 MG TAB PO SCH (20:54)
[2018-08-18] MEDS: metroNIDAZOLE 500 MG TAB PO SCH (20:57)
[2018-08-19] MEDS: KETOROLAC 30 MG/ML 1 ML VIAL IVP PRN ×5 (00:07→23:47)
[2018-08-19] MEDS: VANCOMYCIN 1,750 MG in SODIUM CHLORIDE 0.9% 500 ML 500 ML IVPB SCH (00:10)
[2018-08-19] MEDS: HEPARIN SODIUM,PORCINE 5,000 UNIT/ML 1 ML VIAL SQ SCH ×3 (00:10→17:12)
[2018-08-19] MEDS: ONDANSETRON 4 MG/2 ML VIAL IVP PRN ×3 (00:11→23:45)
[2018-08-19] MEDS: MORPHINE SULFATE 4 MG/ML SYRINGE IV PRN ×6 (00:55→22:09)
[2018-08-19] MEDS: metroNIDAZOLE 500 MG TAB PO SCH ×4 (00:58→22:09)
[2018-08-19] MEDS: SODIUM CHLORIDE 0.9% 1,000 ML IV SCH ×2 (03:46→13:23)
[2018-08-19 08:12] LABS: Basophils % (A) 1 %; Eosinophils # (A) 0.1 k/uL (0-0.7); Eosinophils % (A) 2 %; HCT 33.4 % (39.0-53.0); Lymphocytes # (A) 1.7 k/uL (1.0-4.8); Lymphocytes % (A) 27 %; MCH 32.6 pg (25.0-35.0); MCV 98.9 fL (80.0-100.0); Monocytes # (A) 0.4 k/uL (0-1.0); Monocytes % (A) 7 %; Neutrophils # (A) 3.9 k/uL (1.3-7.7); Neutrophils % (A) 63 %; Platelet Count 243 k/uL (150-450); RBC 3.38 m/uL (4.30-5.90); RDW 13.5 % (11.5-15.5); WBC 6.3 k/uL (3.8-10.6)
--- NOTE | 2018-08-19 08:27 | CONS ---
CONSULTATION DATE OF SERVICE: 08/17/2018 REASON FOR CONSULTATION: Bacteremia. HISTORY OF PRESENT ILLNESS: The patient is a 48-year-old, male presenting to the ER at [facility] apparently with right flank and left knee pain. The patient did mention that the last week he tripped and fell hitting his left knee. The patient did have slight abrasion on his left knee area and since then the patient seems to have pain in his left knee area. The pain that has gradually increased in intensity over the last 3 to 4 days describing the pain to be more of a dull aching when he presented to the hospital. The patient did have pain on walking with some relief on rest. The patient also complaining of some pain to the right flank area more of a dull aching pain 4 to 5 out of 10 and no radiation. The patient denies having any nausea, no vomiting. No significant abdominal pain or any diarrhea. No burning or frequency of urine. With these symptoms, the patient has been evaluated by the ER physician. The patient apparently did have recent evaluation in the ER on the for similar symptoms. At that time, the patient did have a CT of the abdomen and pelvis completed which shows no renal stone or obstruction and no signs of appendicitis; lumbar spinal stenosis; small right pleural effusion. The patient also had abdomen and bladder ultrasound, which shows no hydronephrosis. The patient did have blood cultures on the , which came back positive with Staph aureus that prompted this Infectious Disease consultation. REVIEW OF SYSTEMS: Positive points have been mentioned in HPI, the rest of the systems has been negative. PAST MEDICAL HISTORY: COPD and depression. PAST SURGICAL HISTORY: Wire mesh in the head on the right side. SOCIAL HISTORY: Positive for smoking. Occasionally drinks. No drug use. FAMILY HISTORY: Father history of COPD and [facility]. ALLERGIES: No known drug allergies. MEDICATIONS: Medications include the patient is currently on DuoNeb, Symbicort, Pepcid, heparin, Toradol, Flagyl, Narcan, Zofran, vancomycin 1750 q.12. PHYSICAL EXAMINATION: On examination, blood pressure is 145/82 with a pulse of 83, temperature 99. He is 95% on room air. General description is a middle aged male up in the bed in no distress. No tachypnea or accessory muscle of respiration use. HEENT examination showed no pallor or scleral icterus. Oral mucous membrane is dry. No pharyngeal erythema or thrush. NECK: Trachea central. No thyromegaly. LUNGS: Unlabored breathing, clear to auscultation anteriorly. No wheeze or crackle. HEART: S1, S2. Regular rate and rhythm. No added sounds. ABDOMEN: Soft, no tenderness. No guarding or rigidity. No CVA tenderness. EXTREMITIES: No edema of feet. EXAMINATION OF MUSCULOSKELETAL SYSTEM: The patient currently has no tenderness on his lumbosacral spine area. The right knee is swollen and tender to touch, slight puffiness was noticed. No skin breakdown or any drainage. NEUROLOGICAL: Patient is awake, alert, oriented x3. Mood and affect normal. LABS: Hemoglobin is 13.8 with white count 9.6, BUN of 12, creatinine 1.17. Liver enzymes are mildly elevated. UA was positive. DIAGNOSTIC IMPRESSION AND PLAN: 1. Patient with Staphylococcus aureus bacteremia in this patient admitted to the hospital with his left knee pain in this patient who did have swelling and tenderness to the left knee. Concern likely for either left prepatellar bursitis septic arthritis. Clinically doubt lumbar discitis, underlying not entirely excluded. 2. Patient with elevated liver enzymes, concern for possible chronic hepatitis C. PLAN: 1. Blood cultures will be repeated to document clearance of his bacteremia. 2. Vancomycin pharmacy to dose target of 15 while watching his kidney function closely. 3. Will discussed with Orthopedics if the patient will benefit from aspirate of his left knee area fluid should be sent for cell count differential and culture. 4. We will obtain hepatitis B and C serology for elevated liver enzymes. 5. We will follow up on clinical condition and culture to further adjust medication if needed. Thank you for this consultation. Will follow this patient along with you. MMODL / IJN: [id number] /
[2018-08-19 08:40] LABS: Anion Gap 4 mmol/L; Blood Urea Nitrogen 7 mg/dL (9-20); Calcium 7.7 mg/dL (8.4-10.2); Carbon Dioxide 26 mmol/L (22-30); Chloride 108 mmol/L (98-107); Glucose 88 mg/dL (74-99); Potassium 4.3 mmol/L (3.5-5.1); Sodium 138 mmol/L (137-145)
[2018-08-19] MEDS: IPRATROPIUM-ALBUTEROL 3 ML NEB INHALATION SCH ×4 (08:43→20:15)
[2018-08-19] MEDS: SYMBICORT 160-4.5 MCG INHALER INHALATION SCH ×2 (08:43→20:15)
[2018-08-19] MEDS: FAMOTIDINE 20 MG TAB PO SCH ×2 (09:04→22:09)
--- NOTE | 2018-08-19 13:55 | P.PN ---
Progress Note - Text Progress Note Date: 08/19/18 The patient is seen and examined today at bedside. He is ambulatory in his room but still had pain in his knee and at his back and flank. He feels that his knee is improving. He still feels like his back is giving him most trouble particularly off to the side on the right. He has been able to void. At his knee on the left There is no increased swelling. His has full extension and about 90 of flexion. Nontender to palpation. He is able ambulate on his leg. It is no erythema. At his back there is no point tenderness or crepitus. He says some paravertebral spasm. Assessment and plan Persistent staphylococcal bacteremia Flank pain on the right at the thoracic lumbar junction Left knee pain small effusion stable I think there is very low likelihood he has a septic joint at the left knee as he is able ambulate and move his knee adequately weightbearing as tolerated left side. With bacteremia I would be hesitant to do a aspiration given its low likely yield. He continued his symptomatic treatment for his knee He does have persistent flank pain and bacteremia which is uncommon for the type of UTI. There is concern for colitis versus discitis given his persistent pain. I think it would be worthwhile to obtain further imaging with x-rays and MRI of his thoracic spine and lumbar spine. If he does have evidence of discitis his treatment would be long-term IV antibiotics as he is not having any neurologic deficit. I discussed this with Dr. Burks and he agrees.
--- NOTE | 2018-08-19 16:33 | PN ---
PROGRESS NOTE DATE OF SERVICE: 08/19/2018 REASON FOR FOLLOWUP: MSSA bacteremia. INTERVAL HISTORY: The patient is currently afebrile. The patient continues to complain of pain to his right flank area. He is feeling nauseated but no vomiting. Denies having any chest pain or shortness of breath or cough. No abdominal pain. He does have pain in his left knee area. PHYSICAL EXAMINATION: Blood pressure 144/76, pulse of 78, temperature is 97.9. General description is a middle-aged male up in the bed in no distress. RESPIRATORY SYSTEM: Unlabored breathing with decreased breath sounds at the base. No wheeze. HEART: S1, S2. Regular rate and rhythm. ABDOMEN: Soft. No tenderness. LABS: Hemoglobin is 11, white count 6.3, BUN of 7, creatinine 0.93. Blood culture from 08/18 is positive as well. DIAGNOSTIC IMPRESSION AND PLAN: Patient with methicillin-susceptible Staphylococcus aeruginosa bacteremia in a patient who complains of left knee pain after a fall and also pain to the right flank area. Clinically doubt pyelonephritis. Likely etiology will be either left knee septic arthritis versus is lumbosacral spine diskitis. An MR of the thoracolumbar spine has been ordered by Orthopedics. Left should have been done with contrast for a better yield. This will be discussed further with Orthopedics. Keep the patient on cefazolin 2 grams q.8 hours. Blood cultures will be repeated to document clearance of his bacteremia. Overall prognosis remains guarded. Continue with supportive care. MMODL / IJN: [id number] /
--- NOTE | 2018-08-19 16:34 | P.PN ---
Subjective 48-year-old admitted the with severe pain in the left flank area patient has persistent bacteremia now. We'll repeat another blood culture. Patient is still having severe pain in the back discitis remains a concern discussed with the orthopedic surgery his pain in the left knee is significantly better will obtain MRA with contrast. CAT scan of the abdomen appears to be okay. Patient does not have any focal weakness tingling numbness in the legs. Continue the IV antibiotics. Patient denied using any IV street drugs. Asked Constitutional: Denied any fatigue denied any fever. Cardio vascular: denied any chest pain, palpitations Gastrointestinal denied any nausea vomiting Pulmonary: Denied any shortness of breath cough Neurologic denied any new focal deficits All inpatient medications were reviewed and appropriate changes in these medications as dictated in the interval history and assessment and plan. Objective - Vital Signs Vital signs: Vital Signs Temp 97.9 F 08/19/18 15:00 Pulse 80 08/19/18 16:19 Resp 16 08/19/18 07:21 BP 144/76 08/19/18 15:00 Pulse Ox 75 L 08/19/18 15:00 Intake & Output 08/18/18 08/19/18 08/19/18 18:59 06:59 18:59 Intake Total 960 2040 Balance 960 2040 Intake: Intake, IV Titration 960 1200 Amount Sodium Chloride 0.9% 1, 960 1200 000 ml @ 120 mls/hr IV . Q8H20M [facility] Rx#:[id number] Oral 840 Other: # Voids 3 3 2 - Exam PHYSICAL EXAMINATION: GENERAL: The patient is alert and oriented x3, Well developed, well nourished. Obese HEENT: Pupils are round and equally reacting to light. EOMI. No scleral icterus. No conjunctival pallor. Normocephalic, atraumatic. No pharyngeal erythema. No thyromegaly. CARDIOVASCULAR: S1 and S2 present. No murmurs, rubs, or gallops. PULMONARY: Wheezing completely resolved good air entry bilateral lung wills ABDOMEN: Soft, no tenderness in the back. MUSCULOSKELETAL: Knee swallowing and some stiffness limited movements of the right knee because of the stiffness no significant pain or tenderness local is of temperature EXTREMITIES: No cyanosis, clubbing, or pedal edema. NEUROLOGICAL: Gross neurological examination did not reveal any focal deficits. SKIN: No rashes. - Labs CBC & Chem 7: 08/19/18 07:20 08/19/18 07:20 Labs: Abnormal Lab Results - Last 24 Hours (Table) 08/19/18 08/19/18 Range/Units 07:20 07:20 RBC 3.38 L (4.30-5.90) m/uL Hgb 11.0 L (13.0-17.5) gm/dL Hct 33.4 L (39.0-53.0) % Chloride 108 H (98-107) mmol/L BUN 7 L (9-20) mg/dL Calcium 7.7 L (8.4-10.2) mg/dL Microbiology - Last 24 Hours (Table) 08/18/18 00:30 Urine Culture - Final Urine,Voided 08/18/18 00:30 Blood Culture Gram Stain - Preliminary Blood Blood Culture - Preliminary Presumptive Staph aureus 08/18/18 00:30 Blood Culture - Final Blood Assessment and Plan Plan: Severe sepsis: Etiologies of sick is not clear at this time patient has MRSA bacteremia persistent bacteremia patient may need the echocardiogram. Patient discitis remains a concern MRI of the lumbar spine with contrast will be obtained patient is also being treated for urinary tract infection as well as a infectious colitis patient is on vancomycin, metronidazole and Rocephin at this time infectious disease is following the patient. Left knee looks much better today -Possible infectious colitis the right cecal area. -Bacteremia with staph aureus -Right knee effusion and stiffness secondary to traumatic injury possibility is low for septic arthritis -COPD with minimal exacerbation improved with inhaled steroids and inhalational treatments Patient will need pharmacologic GI and DVT prophylaxis.
[2018-08-19 16:52] LABS: Hepatitis A Ab, Total Non-Reactive (Non-Reactive); Hepatitis C IgG Antibody Non-Reactive (Non-Reactive)
[2018-08-19] MEDS: ceFAZolin IN SWFI 2 GM/20 ML SYRINGE IVP SCH (17:13)
--- NOTE | 2018-08-19 18:37 | XR ---
EXAMINATION TYPE: XR thoracic spine 2V DATE OF EXAM: 08/19/2018 COMPARISON: NONE HISTORY: Back pain TECHNIQUE: 3 views FINDINGS: Thoracic vertebra have normal alignment. There is spurring anteriorly in the lower thoracic spine. There is no compression fracture. Posterior elements are intact. IMPRESSION: Degenerative spur formation. No fracture seen.
--- NOTE | 2018-08-19 18:38 | XR ---
EXAMINATION TYPE: XR lumbosacral spine min 4V DATE OF EXAM: 08/19/2018 COMPARISON: NONE HISTORY: Back pain TECHNIQUE: 5 views FINDINGS: The thoracic vertebra have normal spacing and alignment. Posterior elements are intact. The re is no paraspinal mass. There is some spurring in the lumbar spine. Sacroiliac joints appear intact . IMPRESSION: Spondylotic mild changes. No fracture seen.
--- NOTE | 2018-08-19 21:40 | MR ---
EXAMINATION TYPE: MR tspine/lspine wo con DATE OF EXAM: 08/19/2018 COMPARISON: None HISTORY: Thoracolumbar pain TECHNIQUE: Multiplanar, multisequence imaging of the lumbar and thoracic spine is performed without I V contrast. FINDINGS: The thoracic and lumbar vertebra have normal spacing and alignment for the patient's age. I see no compression fracture. There is decreased signal and slight narrowing of the L3-4 disc. There is developmentally small spinal canal in the thoracic and lumbar spine. There is posterior disc herni ation on the left side at L4-5 and severe narrowing of the spinal canal. There is no lumbar paraspinal mass. Posterior elements are intact. There is no compression fracture. There is no thoracic paraspinal mass. Thoracic spinal cord has normal signal pattern without evidence of edema. There is endplate spur formation and disc bulging at C6-7 and minimal encroachment on the spinal canal. The canal is narrowed to 7.5 mm. The T2 images show increased signal in the cervical spinal cord at the C3-4 level that measures 6 mm in length. There is also narrowing of the spinal canal at this level canal measures 5 to 6 mm. IMPRESSION: There is mild to moderate posterior left-sided L4-5 lumbar disc herniation and impingement on the lat eral recess and mild to moderate spinal stenosis. There is developmentally small lumbar spinal canal. There is posterior mild disc herniation at C6-7 and a minimal relative spinal stenosis. There is moderate stenosis at C3-4 level with myelomalacia and abnormal increased signal in the cervi ashia cord. MR scan cervical spine would be useful for further evaluation if clinically indicated. No fracture.
[2018-08-20] MEDS: SODIUM CHLORIDE 0.9% 1,000 ML IV SCH ×4 (00:03→22:46)
[2018-08-20] MEDS: ceFAZolin IN SWFI 2 GM/20 ML SYRINGE IVP SCH ×4 (00:26→23:24)
[2018-08-20] MEDS: HEPARIN SODIUM,PORCINE 5,000 UNIT/ML 1 ML VIAL SQ SCH ×4 (00:26→23:24)
[2018-08-20] MEDS: metroNIDAZOLE 500 MG TAB PO SCH ×4 (01:31→20:29)
[2018-08-20] MEDS: MORPHINE SULFATE 4 MG/ML SYRINGE IV PRN ×5 (02:27→20:29)
[2018-08-20] MEDS: KETOROLAC 30 MG/ML 1 ML VIAL IVP PRN ×4 (05:22→22:05)
[2018-08-20] MEDS: IPRATROPIUM-ALBUTEROL 3 ML NEB INHALATION SCH ×4 (07:34→20:11)
[2018-08-20] MEDS: SYMBICORT 160-4.5 MCG INHALER INHALATION SCH ×2 (07:34→20:11)
[2018-08-20 09:07] LABS: Anion Gap 6 mmol/L; Blood Urea Nitrogen 7 mg/dL (9-20); Carbon Dioxide 25 mmol/L (22-30); Chloride 107 mmol/L (98-107); Glucose 107 mg/dL (74-99); Potassium 4.4 mmol/L (3.5-5.1); Sodium 138 mmol/L (137-145)
--- NOTE | 2018-08-20 09:11 | P.PN ---
Subjective Progress Note Date: 08/20/18 Principal diagnosis: Bacteremia and sepsis The patient is a 48-year-old male who we've been following for possible discitis and left knee septic arthritis. Today, the patient states that he is not feeling better and states he has severe pain to his right flank area which induces nausea and vomiting at times. The patient underwent an MRI of his thoracic and lumbar spine yesterday along with x-rays. No evidence of discitis as noted on the MRIs. The patient states that his left knee is also feeling better. He denies fever, chills, rigors, shortness of breath, chest pain, and abdominal pain this morning. No new complaints this morning. Objective - Vital Signs Vital signs: Vital Signs Temp 98.3 F 08/20/18 09:02 Pulse 91 08/20/18 09:02 Resp 16 08/20/18 09:02 BP 135/70 08/20/18 09:02 Pulse Ox 94 L 08/20/18 09:02 Intake & Output 08/19/18 08/20/18 08/20/18 18:59 06:59 18:59 Intake Total 2030 Output Total 200 Balance -200 2030 Intake: Intake, IV Titration 1440 Amount Sodium Chloride 0.9% 1, 1440 000 ml @ 120 mls/hr IV . Q8H20M [facility] Rx#:[id number] Oral 590 Output: Urine 200 Other: # Voids 2 2 - Exam The patient is a 48-year-old male who is in no acute distress. He is alert and oriented 3. Abdomen is soft and nontender. Chest has good excursion with deep inspiration. There is pain over the right flank area. No discrete back pain at this time. Mild paraspinal spasms of the lumbar spine. No left knee pain on palpation. Full range of motion present to the left knee without difficulty. He has sustained dorsiflexion and plantar flexion and EHL function. He has good foot and ankle motion. Bilateral calves are soft and nontender. Neurological and circulatory status is intact. - Labs CBC & Chem 7: 08/19/18 07:20 08/19/18 07:20 Labs: Microbiology - Last 24 Hours (Table) 08/18/18 00:30 Blood Culture Gram Stain - Final Blood Blood Culture - Final Staphylococcus aureus 08/18/18 00:30 Urine Culture - Final Urine,Voided Assessment and Plan (1) Flank pain Current Visit: Yes Status: Acute Code(s): R10.9 - UNSPECIFIED ABDOMINAL PAIN SNOMED Code(s): 253547434 (2) Positive blood culture Current Visit: Yes Status: Acute Code(s): R78.81 - BACTEREMIA SNOMED Code( s): 135374994 Plan: The clinical and MRI findings were discussed with the patient. There is no evidence of discitis on MRI and his left knee appears to be improving since admission. The source of infection is still unknown at this time, with a possibility of colitis. Continue management by internal medicine and infectious disease. We will continue to follow the patient peripherally and would be happy to reevaluate the patient if his condition changes.
[2018-08-20] MEDS: FAMOTIDINE 20 MG TAB PO SCH ×2 (10:23→20:29)
[2018-08-20] MEDS: ONDANSETRON 4 MG/2 ML VIAL IVP PRN (10:27)
[2018-08-20] MEDS ORDERED: VANCOMYCIN TROUGH DUE 1 EACH MISC MISCELLANE ONE (11:00)
--- NOTE | 2018-08-20 12:56 | P.PN ---
Subjective 48-year-old admitted the with severe pain in the left flank area patient has persistent bacteremia now. We'll repeat another blood culture. Patient is still having severe pain in the back discitis remains a concern discussed with the orthopedic surgery his pain in the left knee is significantly better will obtain MRA with contrast. CAT scan of the abdomen appears to be okay. Patient does not have any focal weakness tingling numbness in the legs. Continue the IV antibiotics. Patient denied using any IV street drugs. 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 Patient 's blood cultures from yesterday are so for negative. patient appears to have MSSA patient is being can urine ceftezole and metronidazole is being continued Vanco mycin was discontinued infectious disease following the patient.Hepatitis was negative. Constitutional: Denied any fatigue denied any fever. Cardio vascular: denied any chest pain, palpitations Gastrointestinal denied any nausea vomiting Pulmonary: Denied any shortness of breath cough Neurologic denied any new focal deficits All inpatient medications were reviewed and appropriate changes in these medications as dictated in the interval history and assessment and plan. Objective - Vital Signs Vital signs: Vital Signs Temp 98.3 F 08/20/18 09:02 Pulse 76 08/20/18 11:14 Resp 16 08/20/18 09:02 BP 135/70 08/20/18 09:02 Pulse Ox 94 L 08/20/18 09:02 Intake & Output 08/19/18 08/20/18 08/20/18 18:59 06:59 18:59 Intake Total 2030 Output Total 200 Balance -200 2029 Intake: Intake, IV Titration 1440 Amount Sodium Chloride 0.9% 1, 1440 000 ml @ 120 mls/hr IV . Q8H20M [facility] Rx#:[id number] Oral 590 Output: Urine 200 Other: # Voids 2 2 - Exam PHYSICAL EXAMINATION: GENERAL: The patient is alert and oriented x3, Well developed, well nourished. Obese HEENT: Pupils are round and equally reacting to light. EOMI. No scleral icterus. No conjunctival pallor. Normocephalic, atraumatic. No pharyngeal erythema. No thyromegaly. CARDIOVASCULAR: S1 and S2 present. No murmurs, rubs, or gallops. PULMONARY: Wheezing completely resolved good air entry bilateral lung wills ABDOMEN: Soft, no tenderness in the back. MUSCULOSKELETAL: Knee swallowing and some stiffness limited movements of the right knee because of the stiffness no significant pain or tenderness local is of temperature EXTREMITIES: No cyanosis, clubbing, or pedal edema. NEUROLOGICAL: Gross neurological examination did not reveal any focal deficits. SKIN: No rashes. - Labs CBC & Chem 7: 08/19/18 07:20 08/20/18 08:29 Labs: Abnormal Lab Results - Last 24 Hours (Table) 08/20/18 Range/Units 08:29 BUN 7 L (9-20) mg/dL Glucose 107 H (74-99) mg/dL Calcium 8.0 L (8.4-10.2) mg/dL Microbiology - Last 24 Hours (Table) 08/19/18 07:20 Blood Culture - Preliminary Blood No Growth after 24 hours 08/18/18 00:30 Blood Culture Gram Stain - Final Blood Blood Culture - Final Staphylococcus aureus 08/18/18 00:30 Urine Culture - Final Urine,Voided Assessment and Plan Plan: Severe sepsis: Etiologies of sepsis is not clear at this time patient has MSSA bacteremia he haspersistent bacteremia patient may need the echocardiogram. MRI did not show any discitis does have some chronic back pain and disc herniation. Pain management consultation as mentioned above. Colitis cannot be ruled out patient will be continued on metronidazole patient has MSSA bacteremia ceftezole and will be continued and vancomycin was discontinued ceftriaxone was discontinuedPLeft knee looks much better today -Possible infectious colitis the right cecal area. -Bacteremia with staph aureus, methicillin sensitive staph aureus -Right knee effusion and stiffness secondary to traumatic injury possibility is low for septic arthritis -COPD with minimal exacerbation improved with inhaled steroids and inhalational treatments Patient will need pharmacologic GI and DVT prophylaxis.
[2018-08-20] MEDS: FUROSEMIDE 10 MG/ML 4 ML VIAL IV SCH (14:08)
--- NOTE | 2018-08-20 14:23 | P.PAINCN ---
History of Present Illness - Reason for Consult Consult date: 08/20/18 - History of Present Illness This is 48 years old male, with a few days' history of severe right-sided mid back pain with radiation to the right flank, started at the end of the last week , he denies any initiating event, , patient denies any fever he denies any change in the bowel movement he denies any motor or sensory deficit in the lower extremities Past Medical History Past Medical History: COPD History of Any Multi-Drug Resistant Organisms: None Reported Additional Past Surgical History / Comment(s): wire mesh in head on R side Past Psychological History: Depression Smoking Status: Current every day smoker Past Alcohol Use History: Occasional Past Drug Use History: None Reported - Past Family History Father Family Medical History: COPD, Myocardial Infarction ([place]) Mother Family Medical History: No Reported History Medications and Allergies Home Medications Medication Instructions Recorded Confirmed Type No Known Home Medications 08/18/18 08/18/18 History Allergies Allergy/AdvReac Type Severity Reaction Status Date / Time No Known Allergies Allergy Verified 08/18/18 08:08 Physical Exam Vitals: Vital Signs Temp Pulse Pulse Resp BP Pulse Ox 08/20/18 11:14 76 08/20/18 10:57 76 08/20/18 09:02 98.3 F 91 16 135/70 94 L 08/20/18 07:54 80 08/20/18 07:35 76 99 08/19/18 23:00 97.8 F 65 16 161/84 99 08/19/18 22:07 98.5 F 100 14 178/88 100 08/19/18 16:30 80 08/19/18 16:19 80 08/19/18 15:00 97.9 F 78 144/76 75 L Intake and Output 08/19/18 08/20/18 08/20/18 22:59 06:59 14:59 Intake Total 590 1440 Balance 590 1440 Intake: Intake, IV Titration 1440 Amount Sodium Chloride 0.9% 1, 1440 000 ml @ 120 mls/hr IV . Q8H20M [facility] Rx#:[id number] Oral 590 Other: # Voids 2 2 Physical Examinations : 1-Constitutiona : Cooperative , not in acute distress . 2-HEENT : nech ; supple , no Lymphadenopathy , normal thyroid size . eyes : no ptosis , no icterus, no photophobia . ENT : normal of hearing , normal oropharynx , no Thrush . 3- Respiratory : Chest clear to auscultations Bilaterally , no wheezing , no Rhonchi . 4- Cardiovascular : regular rate and rhythem , S1 , S2 , no S3 , no S4. 5- Gastrointestinal : abdomen soft no tenderness , bowel sounds , no organomegally . 6- Genitourinary : Defferred . 7- neurologic : Cranial nerve II to XII intact , no focal neurological deffecit . 8-psychatric : alert , oriented X 3 , appropriate affect , intact judgment and insight . 9-Lymphatic : no Lymphadenopathy . 10- musculoskeltal : Cervical Spine motor stregnth in the deltoid and biceps, normal right side , normal Left side motor stregnth biceps and the wrist extensors normal right side ,normal left side . motor stregnth in the triceps muscle . normal Right side , normal Left side deep tendon reflexes normal at the biceps , normal at Brachioradialis , normal at triceps. Thoracic spine= Multiple trigger points identified in the right side thoracic paravertebral muscles from T8 to T12 Positive facet loading test right side thoracic. Lumber spine moter stegnth lower extremities , thigh and legs 5/5 Right side , 5/5 Left side deep tendon reflexes : normal Knee Jerk , normal ankle Jerk negative lumber facet Loading Test Range of motion of the lumbar spine Flexion 60 degrees, extension 30 degrees strait leg raising test , positive at degree Fabere test negative bilaterally Results CBC & Chem 7: 08/19/18 07:20 08/20/18 08:29 Labs: Abnormal Lab Results - Last 24 Hours (Table) 08/20/18 Range/Units 08:29 BUN 7 L (9-20) mg/dL Glucose 107 H (74-99) mg/dL Calcium 8.0 L (8.4-10.2) mg/dL Microbiology - Last 24 Hours (Table) 08/19/18 07:20 Blood Culture - Preliminary Blood No Growth after 24 hours 08/18/18 00:30 Blood Culture Gram Stain - Final Blood Blood Culture - Final Staphylococcus aureus 08/18/18 00:30 Urine Culture - Final Urine,Voided Comments: MRI of the thoracic spine and lumbar spine reviewed Assessment and Plan Plan: Assessment and plan= mid back pain with radiation to the right flank area, mostly secondary to musculoskeletal in nature Exam positive for multiple trigger points in the right side thoracic area from T8 to T12. Patient could benefit from Lidoderm patch 5% to be applied to the mid back area 12 hours on 12 hours off He could benefit from muscle relaxant baclofen 10 mg 3 times a day, Continual toradol for today tomorrow morning and will switch her to Motrin. Time with Patient: Less than 30 PQRS Measure Charge Sheet PQRS Narrative: Smoking Status Current every day smoker Do You Want the Pneumonia No Vaccine AT THIS TIME? Blood Pressure [Left Arm] 135/70 Blood Pressure 137/77 Pain Intensity [Back] 8 Pain Intensity [Left Knee] 6 Pain Intensity 10 Pain Scale Used Non Verbal Pain Indicator Scale Used Non Verbal Pain Indicator Home Medications: Ambulatory Orders No Known Home Medications 08/18/18
[2018-08-20] MEDS: LIDOCAINE 5% PATCH TOPICAL SCH (16:11)
[2018-08-20] MEDS: BACLOFEN 10 MG TAB PO PRN ×2 (16:28→23:31)
--- NOTE | 2018-08-20 22:53 | PN ---
PROGRESS NOTE DATE OF SERVICE: 08/20/2018. REASON FOR FOLLOWUP: MSSA bacteremia, concern for possible left knee septic arthritis. INTERVAL HISTORY: The patient is afebrile. He currently complains of pain to the left flank area. The patient denies having any chest pain or shortness of breath. No cough. No abdominal pain. No diarrhea. Pain to the left knee minimally improved. PHYSICAL EXAMINATION: Blood pressure 150/86, pulse of 83, temperature 99.8. He is 95% on room air. GENERAL DESCRIPTION: A middle aged male up in the bed in no distress. RESPIRATORY SYSTEM: Unlabored breathing. Clear to auscultation anteriorly. HEART: S1, S2. Regular rate and rhythm. EXTREMITIES: Left knee remains to be slightly swollen. No redness. No drainage. LABS: BUN of 7, creatinine 0.84. Blood culture repeat 08/19/2018 is negative so far. DIAGNOSTIC IMPRESSION AND PLAN: Patient with MSSA bacteremia concerning likely for left knee septic arthritis. MRI of the lumbosacral spine has been negative for any diskitis. We will discuss with ortho as the patient would benefit from an aspirate of the knee to confirm diagnosis and possible . Continue with cefazolin at this point. Continue supportive care. MMODL / IJN: [id number] /
[2018-08-21] MEDS: SODIUM CHLORIDE 0.9% 1,000 ML IV SCH ×2 (00:48→08:57)
[2018-08-21] MEDS: MORPHINE SULFATE 4 MG/ML SYRINGE IV PRN ×6 (00:53→21:25)
[2018-08-21] MEDS: metroNIDAZOLE 500 MG TAB PO SCH ×4 (02:05→21:25)
[2018-08-21] MEDS: KETOROLAC 30 MG/ML 1 ML VIAL IVP PRN ×3 (04:29→15:48)
[2018-08-21 07:17] LABS: HCT 33.4 % (39.0-53.0); HGB 10.6 gm/dL (13.0-17.5); MCH 30.7 pg (25.0-35.0); MCHC 31.6 g/dL (31.0-37.0); MCV 97.1 fL (80.0-100.0); Mean Platelet Volume 6.3; Platelet Count 328 k/uL (150-450); RBC 3.44 m/uL (4.30-5.90); RDW 13.2 % (11.5-15.5); WBC 6.7 k/uL (3.8-10.6)
[2018-08-21 07:32] LABS: Anion Gap 8 mmol/L; Blood Urea Nitrogen 8 mg/dL (9-20); Calcium 7.8 mg/dL (8.4-10.2); Carbon Dioxide 26 mmol/L (22-30); Chloride 104 mmol/L (98-107); Glucose 104 mg/dL (74-99); Potassium 3.9 mmol/L (3.5-5.1); Sodium 138 mmol/L (137-145)
[2018-08-21] MEDS: FUROSEMIDE 10 MG/ML 4 ML VIAL IV SCH (08:32)
[2018-08-21] MEDS: ceFAZolin IN SWFI 2 GM/20 ML SYRINGE IVP SCH ×2 (08:32→15:47)
[2018-08-21] MEDS: HEPARIN SODIUM,PORCINE 5,000 UNIT/ML 1 ML VIAL SQ SCH ×2 (08:33→15:49)
[2018-08-21] MEDS: FAMOTIDINE 20 MG TAB PO SCH ×2 (08:33→21:21)
[2018-08-21] MEDS: BACLOFEN 10 MG TAB PO PRN ×3 (08:56→21:21)
[2018-08-21] MEDS: IPRATROPIUM-ALBUTEROL 3 ML NEB INHALATION SCH ×4 (09:16→19:53)
[2018-08-21] MEDS: SYMBICORT 160-4.5 MCG INHALER INHALATION SCH ×2 (09:16→19:53)
[2018-08-21] MEDS ORDERED: POLYETHYLENE GLYCOL 3350 17 GM POWD.PACK PO PRN (12:41)
[2018-08-21] MEDS: LIDOCAINE 5% PATCH TOPICAL SCH (12:54)
--- NOTE | 2018-08-21 14:30 | P.PN ---
Subjective Progress Note Date: 08/21/18 Principal diagnosis: Bacteremia. Low back pain. Left knee pain. This is a 48-year-old male whom we're following regarding his low back pain. MRI showed no evidence of discitis. He has had persistent bacteremia since admission. Infectious disease is requesting left knee aspiration today to rule out septic arthritis of the knee. Patient states that his knee pain is significantly improved since his admission. Objective - Vital Signs Vital signs: Vital Signs Temp 98.3 F 08/21/18 07:00 Pulse 76 08/21/18 12:33 Resp 12 08/21/18 07:00 BP 155/96 08/21/18 07:00 Pulse Ox 97 08/21/18 07:00 Intake & Output 08/20/18 08/21/18 08/21/18 18:59 06:59 18:59 Intake Total 2040 Output Total 1900 Balance 2040 -1900 Intake: Intake, IV Titration 1440 Amount Sodium Chloride 0.9% 1, 1440 000 ml @ 120 mls/hr IV . Q8H20M [facility] Rx#:[id number] Oral 600 Output: Urine 1900 Other: # Voids 2 1 3 - Exam This is a pleasant 48-year-old gentleman in no acute distress. He is alert and oriented at this time. Exam of the left knee reveals a superficial scab about the anterior aspect of the knee. There is a 1+ effusion to the knee. There is no erythema or ecchymosis. He has full flexion and extension of the knee without difficulty or pain. Neurovascular status to the lower extremity is intact. - Labs CBC & Chem 7: 08/21/18 06:50 08/21/18 06:50 Labs: Abnormal Lab Results - Last 24 Hours (Table) 08/21/18 08/21/18 Range/Units 06:50 06:50 RBC 3.44 L (4.30-5.90) m/uL Hgb 10.6 L (13.0-17.5) gm/dL Hct 33.4 L (39.0-53.0) % BUN 8 L (9-20) mg/dL Glucose 104 H (74-99) mg/dL Calcium 7.8 L (8.4-10.2) mg/dL Microbiology - Last 24 Hours (Table) 08/20/18 08:29 Blood Culture - Preliminary Blood No Growth after 24 hours 08/19/18 07:20 Blood Culture - Preliminary Blood No Growth after 48 hours Assessment and Plan (1) Knee pain, left Current Visit: Yes Status: Acute Code(s): M25.562 - PAIN IN LEFT KNEE SNOMED Code(s): 85737763 (2) Positive blood culture Current Visit: Yes Status: Acute Code(s): R78.81 - BACTEREMIA SNOMED Code( s): 429153229 (3) Pyelonephritis Current Visit: No Status: Acute Code(s): N12 - TUBULO-INTERSTITIAL NEPHRITIS , NOT SPCF ACUTE OR CHRONIC SNOMED Code(s): 14068446 Plan: The clinical findings are discussed the patient. The left knee is aspirated using sterile technique, obtaining approximately 34 mL of slightly hazy, yellow fluid. The fluid is sent for culture and sensitivity, cell count and crystal identification. We will wait results from microbiology and the cell count. If findings consistent with septic arthritis, we'll plan performing a surgical irrigation and debridement.
[2018-08-21 15:32] LABS: Appearance,BF Cloudy; Color,BF Yellow
[2018-08-21 15:33] LABS: Nucleated Cells, Body Fluid 5080 /uL; RBC, Body Fluid 320 /uL
[2018-08-21 15:51] LABS: Mononuclear WBC,Body Fluid 6 %; Polynuclear WBC,Body Fluid 94 %; Total Cells Counted,Body Fluid 100
--- NOTE | 2018-08-21 16:43 | P.PN ---
Subjective 48-year-old admitted the with severe pain in the left flank area patient has persistent bacteremia now. We'll repeat another blood culture. Patient is still having severe pain in the back discitis remains a concern discussed with the orthopedic surgery his pain in the left knee is significantly better will obtain MRA with contrast. CAT scan of the abdomen appears to be okay. Patient does not have any focal weakness tingling numbness in the legs. Continue the IV antibiotics. Patient denied using any IV street drugs. Asked Patient is to come back pain and patient had an MRI of the back which is showing disc herniation and the orthotic surgery evaluated the patient discussed with the patient patient may need foxing painter. Patient 's blood cultures from yesterday are so for negative. patient appears to have MSSA patient is being can urine ceftezole and metronidazole is being continued Vanco mycin was discontinued infectious disease following the patient.Hepatitis was negative. 08/21/2018 Patient is a bit blood cultures are negative patient has MSSA bacteremia and infectious disease believes his and need to be need to be aspirated and the patient underwent aspiration of the knee. The spinal fluid was sent for culture cell count. Patient was evaluated by pain management and they believe patient has muscle strain causing back pain for which the muscle relaxant topical therapy and ibuprofen are being recommended. Patient will need a PICC line as per Infectious disease midline will be ordered. Patient doesn't have insurance because of which IV antibiotics will not be easy at the time of discharge Constitutional: Denied any fatigue denied any fever. Cardio vascular: denied any chest pain, palpitations Gastrointestinal denied any nausea vomiting Pulmonary: Denied any shortness of breath cough Neurologic denied any new focal deficits All inpatient medications were reviewed and appropriate changes in these medications as dictated in the interval history and assessment and plan. Objective - Vital Signs Vital signs: Vital Signs Temp 98.1 F 08/21/18 15:00 Pulse 70 08/21/18 15:53 Resp 16 08/21/18 15:53 BP 159/88 08/21/18 15:00 Pulse Ox 97 08/21/18 15:42 Intake & Output 08/20/18 08/21/18 08/21/18 18:59 06:59 18:59 Intake Total 2040 Output Total 1900 Balance 2039 -190 Intake: Intake, IV Titration 1440 Amount Sodium Chloride 0.9% 1, 1440 000 ml @ 120 mls/hr IV . Q8H20M [facility] Rx#:[id number] Oral 600 Output: Urine 1900 Other: # Voids 2 1 2 - Exam PHYSICAL EXAMINATION: GENERAL: The patient is alert and oriented x3, Well developed, well nourished. Obese HEENT: Pupils are round and equally reacting to light. EOMI. No scleral icterus. No conjunctival pallor. Normocephalic, atraumatic. No pharyngeal erythema. No thyromegaly. CARDIOVASCULAR: S1 and S2 present. No murmurs, rubs, or gallops. PULMONARY: Wheezing completely resolved good air entry bilateral lung wills ABDOMEN: Soft, no tenderness in the back. MUSCULOSKELETAL: Knee swallowing and some stiffness limited movements of the right knee because of the stiffness no significant pain or tenderness local is of temperature EXTREMITIES: No cyanosis, clubbing, or pedal edema. NEUROLOGICAL: Gross neurological examination did not reveal any focal deficits. SKIN: No rashes. - Labs CBC & Chem 7: 08/21/18 06:50 08/21/18 06:50 Labs: Abnormal Lab Results - Last 24 Hours (Table) 08/21/18 08/21/18 Range/Units 06:50 06:50 RBC 3.44 L (4.30-5.90) m/uL Hgb 10.6 L (13.0-17.5) gm/dL Hct 33.4 L (39.0-53.0) % BUN 8 L (9-20) mg/dL Glucose 104 H (74-99) mg/dL Calcium 7.8 L (8.4-10.2) mg/dL Microbiology - Last 24 Hours (Table) 08/20/18 08:29 Blood Culture - Preliminary Blood No Growth after 24 hours 08/19/18 07:20 Blood Culture - Preliminary Blood No Growth after 48 hours Assessment and Plan Plan: Severe sepsis: Etiologies of sepsis elected to be knee because of MSSA bacteremia he haspersistent bacteremia, repeat blood cultures are negative MRI did not show any discitis does have some chronic back pain and disc herniation. Pain management recommendations as mentioned above. Colitis cannot be ruled out patient will be continued on metronidazole patient has MSSA bacteremia ceftezolin and will be continued and vancomycin was discontinued ceftriaxone was discontinued Left knee arthrocentesis was done today -Possible infectious colitis the right cecal area. -Bacteremia with staph aureus, methicillin sensitive staph aureus -Right knee effusion and stiffness secondary to traumatic injury possibility of septic arthritis. Ruled out because of which patient underwent arthrocentesis today -COPD with minimal exacerbation improved with inhaled steroids and inhalational treatments Patient will need pharmacologic GI and DVT prophylaxis.
[2018-08-21] MEDS: IBUPROFEN 800 MG TAB PO PRN (17:37)
[2018-08-21] MEDS: MELATONIN 3 MG TABLET PO SCH (21:21)
--- NOTE | 2018-08-21 23:03 | PN ---
PROGRESS NOTE DATE OF SERVICE: 08/21/2018 REASON FOR FOLLOWUP: MSSA bacteremia with a question of possible left knee septic arthritis. INTERVAL HISTORY: The patient is afebrile. His pain is better controlled today. The patient denies having any chest pain, shortness of breath or cough. No abdominal pain. Did have significant swelling in the leg as well as the scrotum area. PHYSICAL EXAMINATION: Blood pressure is 119/66, pulse of 76, temperature 97.8. He is 98% on room air. General description is a middle-aged male lying in bed in no distress. RESPIRATORY SYSTEM: Unlabored breathing. Clear to auscultation anteriorly. HEART: S1, S2. Regular rate and rhythm. ABDOMEN: Soft. No tenderness. LEFT KNEE: Minimal swelling. No redness or drainage. LABS: White count 6.7. The aspirate from the left knee shows cloudy fluid; however, white cells were only 5080. Blood culture repeat has been negative. DIAGNOSTIC IMPRESSION AND PLAN: Patient with methicillin-susceptible Staphylococcus aeruginosa bacteremia, for which the patient did have extensive workup without clear focus. MRI of the lumbar spine were negative. Case was discussed with Ortho, who did aspirate his left knee. Will wait for the culture to finalize. The patient will need a midline for outpatient IV antibiotic therapy. That will be transitioned to daptomycin 6 mg/kg for 2 to 4 weeks, depending upon the culture report from the left knee. Plan of care was discussed with the counseling case manager as well as the attending physician. MMKATEL / VINAYN: [id number] /
[2018-08-22] MEDS: ceFAZolin IN SWFI 2 GM/20 ML SYRINGE IVP SCH ×3 (00:14→16:35)
[2018-08-22] MEDS: IBUPROFEN 800 MG TAB PO PRN (00:14)
[2018-08-22] MEDS: HEPARIN SODIUM,PORCINE 5,000 UNIT/ML 1 ML VIAL SQ SCH ×3 (00:15→19:38)
[2018-08-22] MEDS: metroNIDAZOLE 500 MG TAB PO SCH ×4 (02:18→21:22)
[2018-08-22] MEDS: MORPHINE SULFATE 4 MG/ML SYRINGE IV PRN ×3 (05:55→14:35)
[2018-08-22] MEDS: BACLOFEN 10 MG TAB PO PRN ×3 (05:55→21:23)
[2018-08-22 07:49] LABS: Anion Gap 5 mmol/L; Blood Urea Nitrogen 9 mg/dL (9-20); Calcium 8.4 mg/dL (8.4-10.2); Carbon Dioxide 30 mmol/L (22-30); Chloride 105 mmol/L (98-107); Glucose 104 mg/dL (74-99); Potassium 4.7 mmol/L (3.5-5.1); Sodium 140 mmol/L (137-145)
[2018-08-22] MEDS: FAMOTIDINE 20 MG TAB PO SCH ×2 (09:40→21:22)
[2018-08-22] MEDS: SYMBICORT 160-4.5 MCG INHALER INHALATION SCH ×2 (09:52→20:05)
[2018-08-22] MEDS: IPRATROPIUM-ALBUTEROL 3 ML NEB INHALATION SCH ×4 (09:52→20:00)
--- NOTE | 2018-08-22 10:43 | P.PN ---
Subjective Progress Note Date: 08/22/18 Principal diagnosis: Bacteremia. Low back pain. Left knee pain. This is a 48-year-old male whom we're following regarding his low back pain. MRI showed no evidence of discitis. He has had persistent bacteremia since admission. Infectious disease is requested left knee aspiration to rule out septic arthritis of the knee. Patient states that his knee pain is significantly improved since his admission. Aspiration was performed yesterday. Fluid was sent for cell count, crystal identification and culture and sensitivity. Cell count shows a white blood cell count of 5080 in the aspirate. So far cultures showing no growth. Crystal identification is pending. Objective - Vital Signs Vital signs: Vital Signs Temp 97.3 F L 08/22/18 00:05 Pulse 72 08/22/18 10:08 Resp 17 08/22/18 00:05 BP 173/96 08/22/18 00:05 Pulse Ox 96 08/22/18 00:05 Intake & Output 08/21/18 08/22/18 08/22/18 18:59 06:59 18:59 Intake Total 338 Output Total 1900 Balance -1900 338 Intake: Oral 338 Output: Urine 1900 Other: Voiding Method Toilet Toilet Urinal Urinal # Voids 2 1 # Bowel Movements 1 - Exam This is a pleasant 48-year-old gentleman in no acute distress. He is alert and oriented at this time. Exam of the left knee reveals a superficial scab about the anterior aspect of the knee. There is a 1+ effusion to the knee. There is no erythema or ecchymosis. He has full flexion and extension of the knee without difficulty or pain. Neurovascular status to the lower extremity is intact. He has some increased swelling to the lower leg and foot with no pain. - Labs CBC & Chem 7: 08/21/18 06:50 08/22/18 06:58 Labs: Abnormal Lab Results - Last 24 Hours (Table) 08/22/18 Range/Units 06:58 Glucose 104 H (74-99) mg/dL Microbiology - Last 24 Hours (Table) 08/21/18 14:20 Gram Stain - Preliminary Synovial Fluid Body Fluid Culture - Preliminary 08/19/18 07:20 Blood Culture - Preliminary Blood No Growth after 72 hours 08/21/18 06:50 Blood Culture - Preliminary Blood No Growth after 24 hours 08/20/18 08:29 Blood Culture - Preliminary Blood No Growth after 24 hours Assessment and Plan (1) Knee pain, left Current Visit: Yes Status: Acute Code(s): M25.562 - PAIN IN LEFT KNEE SNOMED Code(s): 94597806 (2) Positive blood culture Current Visit: Yes Status: Acute Code(s): R78.81 - BACTEREMIA SNOMED Code( s): 427954966 (3) Pyelonephritis Current Visit: No Status: Acute Code(s): N12 - TUBULO-INTERSTITIAL NEPHRITIS , NOT SPCF ACUTE OR CHRONIC SNOMED Code(s): 64982507 Plan: The clinical findings are discussed the patient. The laboratory findings are discussed. With a low white blood cell count in the aspirate, it is unlikely that the knee is his source of bacteremia. I have added meloxicam daily for pain management after discussing with the nurse. We will continue to follow peripherally and await final culture and crystal identification results.
[2018-08-22] MEDS: MELOXICAM 7.5 MG TAB PO SCH (10:59)
[2018-08-22] MEDS: LIDOCAINE 5% PATCH TOPICAL SCH (16:35)
--- NOTE | 2018-08-22 19:35 | XR ---
EXAMINATION TYPE: XR ribs RT w pa chest xray DATE OF EXAM: 08/22/2018 COMPARISON: NONE HISTORY: Right rib pain TECHNIQUE: 5 views FINDINGS: The heart and mediastinum are normal. Lungs are clear of consolidation. There is slight regino nting of right costophrenic angle. There is some linear density at the right lung base. There are mul tiple old right-sided rib fractures. I see no acute fracture. There is no pneumothorax. IMPRESSION: No acute fracture seen. Multiple old rib fractures. Mild pleural reaction and scarring at the right lung base. Normal heart.
[2018-08-22] MEDS: HYDROmorphone 0.5 MG/0.5 ML SYRINGE IVP PRN ×2 (19:39→22:41)
--- NOTE | 2018-08-22 20:52 | PN ---
PROGRESS NOTE DATE OF SERVICE: 08/22/2018 This 48-year-old gentleman who was admitted with pain in the left flank area also had persistent bacteremia. The patient had Staph aureus from culture from the blood , which is MSSA. The patient also had left knee effusion which was tapped. The knee effusion cultures are negative so far. The patient is on broad-spectrum IV antibiotics. Patient complained of extreme pain and back pain in the back area. The patient also has history of fall. Thoracic lumbar spine MRI was done which showed DJD. No fractures. The thoracic and lumbar spine x-ray was also done and showed spondylitic changes. Patient is closely monitored at this time. The white count is 6.7. PAST MEDICAL HISTORY: Reviewed. REVIEW OF SYSTEMS: CARDIOVASCULAR: No angina or palpitations. RESPIRATORY: As mentioned. GI: As mentioned earlier. : No dysuria. NERVOUS SYSTEM: No numbness or weakness. CURRENT MEDICATIONS: Reviewed and include: 1. DuoNeb q.i.d. and p.r.n. 3. Symbicort b.i.d. 4. Kefzol 2 g IV q.8h. 5. Pepcid. 6. Heparin. 8. Melatonin. 9. Mobic. 10.Flagyl. 11.Narcan p.r.n. 12.Zofran. 13.MiraLAX. PHYSICAL EXAM: Patient is alert, oriented x2. Pulse is 68, blood pressure 160/90, respirations 16, temperature 98.2, pulse ox 94% on room air. HEENT: Conjunctivae normal. Oral mucosa moist. Neck is no jugular venous distention. No carotid bruit. No lymph node enlargement. CARDIOVASCULAR: S1, S2. RESPIRATORY: Breath sounds diminished in the bases. A few scattered rhonchi. No crackles. ABDOMEN: Soft. Mild diffuse discomfort on palpation. No guarding. No rigidity. No mass. No ascites. Diffuse ecchymosis secondary from heparin injections present. LEGS: No edema. NERVOUS SYSTEM: Higher function as mentioned. Moves all four limbs. No focal deficits. LYMPHATICS: No lymphadenopathy in the neck, axillae, groin. EXAMINATION OF THE BACK: Some tenderness present around the back area and also the right posterior part of the chest. LAB STUDIES: WBC 6, hemoglobin 10.2, sodium 140. ASSESSMENT: 1. MSSA sepsis possibly secondary from knee joint arthritis. 2. Severe back pain, rule out rib fractures. 3. Possible infectious colitis of the right cecal area. 4. Right knee effusion status post aspiration. 5. History of EtOH. 6. Increased AST, ALT. 7. Anemia, normocytic of uncertain etiology. 8. History of chronic obstructive pulmonary disease. 9. History of wrist mesh. 10.History of depression. 11.History of nicotine dependence. RECOMMENDATIONS AND DISCUSSION: This 48-year-old gentleman who presented with multiple complex medical issues, we will monitor the patient closely. Continue the current management and symptomatic treatment. Otherwise will continue the antibiotics at this time. Cultures from 08/21 are negative so far. Otherwise, I would also recommend a chest x-ray and CT scan of the abdomen and chest also to complete the workup. The overall prognosis extremely guarded because of multiple complex medical issues. Further recommendations to follow. I would also recommend CIWA protocol and also Ativan p.r.n. also and pain medications also will be ordered. Further recommendations to follow. HEIDE / VINAYN: [id number] / ALEX
[2018-08-22] MEDS: MELATONIN 3 MG TABLET PO SCH (21:22)
[2018-08-22] MEDS: IOPAMIDOL-300 CONTRAST 30 ML VIAL (ORAL USE) PO PRN ×2 (21:22→22:41)
--- NOTE | 2018-08-22 23:42 | CT ---
EXAMINATION TYPE: CT ChestAbdPelvis wo con DATE OF EXAM: 08/22/2018 COMPARISON: CT abdomen 08/16/2018 HISTORY: Abd pain, back pain CT DLP: 1253.00 mGycm. Automated Exposure Control for Dose Reduction was Utilized. TECHNIQUE: CT scan of the thorax, abdomen and pelvis is performed without IV contrast. FINDINGS: There are bilateral pleural effusions and larger on the right side. There is some patchy atelectasis at the lung bases. There is no pneumothorax. Heart size is normal. There is no mediastinal adenopathy . There are no hilar masses. There is no pericardial effusion. The liver and spleen appear normal. Bile ducts are not dilated. Gallbladder appears normal. Stomach a ppears normal. There is no adrenal mass. Kidneys show normal size and contour. There is no hydronephr osis. There is no retroperitoneal adenopathy. Ureters are not dilated. Bladder distends smoothly. There is no inguinal hernia. There is no free flu id in the pelvis. There are scattered sigmoid diverticula. There is no sign of diverticulitis. There is no mesenteric edema. Appendix is not seen. There is no sign of appendicitis. There is retained fec al material in the right colon. There are mild spondylotic changes in the thoracic and lumbar spine. There is no compression fracture. There is no evidence of free air. IMPRESSION: There are new mild bilateral pleural effusions compared to old exam. There is mild constipation. Abdo men and pelvis not significantly different than old exam.
[2018-08-23] MEDS: HYDROcodone/APAP 5-325MG 1 EACH TAB PO PRN ×4 (00:56→20:20)
[2018-08-23] MEDS: HEPARIN SODIUM,PORCINE 5,000 UNIT/ML 1 ML VIAL SQ SCH ×4 (00:57→23:37)
[2018-08-23] MEDS: ceFAZolin IN SWFI 2 GM/20 ML SYRINGE IVP SCH ×4 (00:57→23:37)
[2018-08-23] MEDS: metroNIDAZOLE 500 MG TAB PO SCH ×4 (02:30→20:19)
[2018-08-23] MEDS: HYDROmorphone 0.5 MG/0.5 ML SYRINGE IVP PRN ×3 (04:23→21:37)
[2018-08-23 07:01] LABS: Basophils # (A) 0.1 k/uL (0-0.2); Basophils % (A) 1 %; Eosinophils # (A) 0.2 k/uL (0-0.7); Eosinophils % (A) 2 %; HCT 33.4 % (39.0-53.0); HGB 11.4 gm/dL (13.0-17.5); Lymphocytes # (A) 2.8 k/uL (1.0-4.8); Lymphocytes % (A) 27 %; MCH 32.8 pg (25.0-35.0); MCV 96.4 fL (80.0-100.0); Mean Platelet Volume 6.7; Monocytes # (A) 0.5 k/uL (0-1.0); Monocytes % (A) 5 %; Neutrophils # (A) 6.3 k/uL (1.3-7.7); Neutrophils % (A) 62 %; Platelet Count 446 k/uL (150-450); RBC 3.46 m/uL (4.30-5.90); RDW 13.4 % (11.5-15.5)
[2018-08-23 07:20] LABS: ALT 53 U/L (21-72); AST 60 U/L (17-59); Albumin 2.7 g/dL (3.5-5.0); Alkaline Phosphatase 101 U/L (38-126); Anion Gap 8 mmol/L; Blood Urea Nitrogen 8 mg/dL (9-20); Calcium 8.6 mg/dL (8.4-10.2); Carbon Dioxide 29 mmol/L (22-30); Chloride 100 mmol/L (98-107); Creatine Kinase 42 U/L (55-170); Glucose 112 mg/dL (74-99); Potassium 4.2 mmol/L (3.5-5.1); Sodium 137 mmol/L (137-145); Total Bilirubin 0.4 mg/dL (0.2-1.3); Total Protein 5.5 g/dL (6.3-8.2)
[2018-08-23] MEDS: IPRATROPIUM-ALBUTEROL 3 ML NEB INHALATION SCH ×4 (08:25→20:12)
[2018-08-23] MEDS: SYMBICORT 160-4.5 MCG INHALER INHALATION SCH ×2 (08:25→20:12)
[2018-08-23] MEDS: MELOXICAM 7.5 MG TAB PO SCH (10:21)
[2018-08-23] MEDS: FAMOTIDINE 20 MG TAB PO SCH ×2 (10:22→20:19)
[2018-08-23] MEDS: PANTOPRAZOLE 40 MG TABLET PO SCH (10:24)
[2018-08-23] MEDS: FOLIC ACID 1 MG TAB PO SCH (14:24)
[2018-08-23] MEDS: BACLOFEN 10 MG TAB PO PRN (14:24)
[2018-08-23] MEDS: MULTIVITAMINS, THERA 1 EACH TAB PO SCH (14:24)
[2018-08-23] MEDS: THIAMINE 100 MG TAB PO SCH (14:24)
[2018-08-23] MEDS: LIDOCAINE 5% PATCH TOPICAL SCH (15:37)
[2018-08-23] MEDS: MELATONIN 3 MG TABLET PO SCH (20:19)
--- NOTE | 2018-08-23 21:42 | PN ---
PROGRESS NOTE DATE OF SERVICE: 08/23/2018 HISTORY: This 48-year-old gentleman who was admitted with pain in the left flank, also had bacteremia. MSSA is growing from the cultures. The patient is also complaining of back pain. The patient was found to have multiple rib fractures old in the right lower part. The patient had Staph aureus growing from cultures from 08/18. Subsequent cultures are negative at this time. Please also note that the patient did have a thoracic lumbar spine MRI. PAST MEDICAL HISTORY: Reviewed. REVIEW OF SYSTEMS: CARDIOVASCULAR: No angina. RESPIRATORY: No shortness of breath. GI: As mentioned. : No dysuria. NERVOUS SYSTEM: No numbness or weakness. CURRENT MEDICATIONS: Reviewed, include: 1. [place] 5 mg q.i.d. p.r.n. 2. DuoNeb q.i.d. and p.r.n. 4. Kefzol 2 g IV every 8 hours. 5. Pepcid 20 mg b.i.d. 6. Folic acid. 7. Heparin subcu IV every 8 hours. 8. Dilaudid p.r.n. 0.5 every 3 hours p.r.n. 9. Melatonin. 10.Mobic. 11.Flagyl. 12.Narcan. 13.Protonix. 14.Vitamin B 1 p.r.n. PHYSICAL EXAMINATION: Alert oriented x2. Pulse is 75, blood pressure 130/86, respirations 16, temperature 98.1, pulse ox 98% on room air. HEENT: Conjunctivae normal. Oral mucosa moist. NECK: No jugular venous distention. No lymph node enlargement. CARDIOVASCULAR: S1 and S2 muffled. LUNGS: Breath sounds diminished at the bases. Few scattered rhonchi and crackles. ABDOMEN: Soft, nontender. LEGS: No edema. NERVOUS SYSTEM: No focal deficits. LABS: At this time shows WBC 10, hemoglobin 11.4, sodium 137, potassium 4.2, albumin is 2.7. ASSESSMENT: 1. MSSA sepsis, possibly secondary from knee joint arthritis and septic arthritis. 2. Severe back pain, rule out old possible rib fractures and muscle contusion. 3. Possible infectious colitis of the right cecal area. 4. Right knee effusion status post aspiration. 5. History of ETOH. 6. Increased AST and ALT. 7. Anemia, normocytic, uncertain etiology. 8. History of COPD. 9. History of wrist mesh. 10.History of depression. 11.History of nicotine dependence. RECOMMENDATIONS: Continue current management and symptomatic treatment. At this time I recommend continued IV antibiotics. Repeat cultures have been ordered. Continue the rest of medications. Findings as above. X-ray reviewed. Guarded prognosis because of multiple complex medical issues. Discussed with the patient. Will increase ambulation. MMKATEL / IJN: [id number] / ALEX
[2018-08-24] MEDS: HYDROmorphone 0.5 MG/0.5 ML SYRINGE IVP PRN ×7 (00:35→21:10)
[2018-08-24] MEDS: metroNIDAZOLE 500 MG TAB PO SCH ×4 (01:42→21:10)
[2018-08-24] MEDS: TEMAZEPAM 15 MG CAP PO PRN ×2 (01:44→22:21)
[2018-08-24] MEDS: HYDROcodone/APAP 5-325MG 1 EACH TAB PO PRN ×4 (03:23→22:20)
[2018-08-24] MEDS: IPRATROPIUM-ALBUTEROL 3 ML NEB INHALATION SCH ×4 (07:01→19:34)
[2018-08-24] MEDS: SYMBICORT 160-4.5 MCG INHALER INHALATION SCH ×2 (07:01→19:34)
[2018-08-24 07:10] LABS: Basophils # (A) 0.1 k/uL (0-0.2); Basophils % (A) 1 %; Eosinophils # (A) 0.3 k/uL (0-0.7); Eosinophils % (A) 3 %; HCT 35.6 % (39.0-53.0); HGB 12.1 gm/dL (13.0-17.5); Lymphocytes # (A) 2.6 k/uL (1.0-4.8); Lymphocytes % (A) 28 %; MCH 32.7 pg (25.0-35.0); MCHC 33.8 g/dL (31.0-37.0); MCV 96.7 fL (80.0-100.0); Mean Platelet Volume 6.4; Monocytes # (A) 0.5 k/uL (0-1.0); Monocytes % (A) 5 %; Neutrophils # (A) 5.6 k/uL (1.3-7.7); Neutrophils % (A) 60 %; Platelet Count 483 k/uL (150-450); RBC 3.69 m/uL (4.30-5.90); RDW 13.4 % (11.5-15.5); WBC 9.2 k/uL (3.8-10.6)
[2018-08-24 07:35] LABS: ALT 57 U/L (21-72); AST 59 U/L (17-59); Albumin 2.7 g/dL (3.5-5.0); Alkaline Phosphatase 89 U/L (38-126); Anion Gap 4 mmol/L; Blood Urea Nitrogen 10 mg/dL (9-20); Calcium 8.4 mg/dL (8.4-10.2); Carbon Dioxide 29 mmol/L (22-30); Chloride 103 mmol/L (98-107); Glucose 105 mg/dL (74-99); Potassium 4.6 mmol/L (3.5-5.1); Sodium 136 mmol/L (137-145); Total Bilirubin 0.4 mg/dL (0.2-1.3); Total Protein 5.5 g/dL (6.3-8.2)
[2018-08-24] MEDS: FAMOTIDINE 20 MG TAB PO SCH ×2 (08:44→21:10)
[2018-08-24] MEDS: MELOXICAM 7.5 MG TAB PO SCH (08:44)
[2018-08-24] MEDS: ceFAZolin IN SWFI 2 GM/20 ML SYRINGE IVP SCH ×2 (08:44→15:26)
[2018-08-24] MEDS: PANTOPRAZOLE 40 MG TABLET PO SCH (08:44)
[2018-08-24] MEDS: HEPARIN SODIUM,PORCINE 5,000 UNIT/ML 1 ML VIAL SQ SCH ×2 (08:44→15:23)
[2018-08-24] MEDS: MULTIVITAMINS, THERA 1 EACH TAB PO SCH (11:35)
[2018-08-24] MEDS: THIAMINE 100 MG TAB PO SCH (11:35)
[2018-08-24] MEDS: FOLIC ACID 1 MG TAB PO SCH (11:35)
[2018-08-24] MEDS: LIDOCAINE 5% PATCH TOPICAL SCH (14:23)
--- NOTE | 2018-08-24 18:58 | PN ---
PROGRESS NOTE DATE OF SERVICE: 08/24/2018 This 48-year-old gentleman was admitted with pain in the left flank, also had emesis and sepsis. The patient had a detailed evaluation with labs including MRI and the repeat cultures are negative. Patient also on multiple pain medications, reporting significant relief. No chest pain. No palpitations. No fever. EXAM: Alert and oriented x3. Blood pressure 130/80, respirations 16, temperature 98.5, pulse ox 98% on room air. HEENT: Conjunctivae normal. Oral mucosa moist. NECK: No jugular venous distention. No lymph node enlargement. CARDIOVASCULAR: S1, S2. RESPIRATORY: Diminished breath sounds at the bases. No rhonchi, no crackles. ABDOMEN: Soft, nontender. LEGS: No swelling. NERVOUS SYSTEM: No focal deficits. LAB STUDIES: WBC 9.2, hemoglobin 12.1, sodium 136. ASSESSMENT: 1. Emesis with sepsis, acute, possibly secondary from knee joint infection. 2. Severe back pain, possibly due to old rib fractures as well as muscle contusion. 3. Possible infectious colitis right cecal area. 4. Right knee effusion status post aspiration. 5. History of ETOH. 6. Increased AST ALT. 7. Anemia, normocytic of undetermined etiology. 8. History of COPD. 9. History of wrist mesh. 10.History of depression. 11.History of nicotine dependence. RECOMMENDATIONS: Recommend to continue current management, continue symptomatic treatment and continue with broad-spectrum IV antibiotics. Otherwise, repeat cultures appear to be negative at this time. No chest pain. No palpitations. No fever. Prognosis guarded. Continue rest of medications. Increase ambulation. Continue the pain medications. Further recommendations to follow. MMODL / IJN: [id number] /
[2018-08-24] MEDS: BACLOFEN 10 MG TAB PO PRN (21:10)
[2018-08-24] MEDS: MELATONIN 3 MG TABLET PO SCH (21:11)
--- NOTE | 2018-08-25 00:10 | PN ---
PROGRESS NOTE DATE OF SERVICE: 08/24/2018. REASON FOR FOLLOWUP: MSSA bacteremia, question of left knee septic arthritis. INTERVAL HISTORY: The patient is currently afebrile, has been breathing comfortably. The patient denies having any chest pain, shortness of breath. No cough or abdominal pain. The left knee pain has improved. No diarrhea. PHYSICAL EXAMINATION: Blood pressure 132/86, pulse of 85, temperature 97.8. He is 98% on room air. GENERAL DESCRIPTION: A middle-aged male lying in bed in no distress. RESPIRATORY SYSTEM: Unlabored breathing. Clear to auscultation anteriorly. HEART: S1, S2. Regular. EXTREMITIES: The left knee swelling has improved with no redness or any drainage. LABS: Hemoglobin 12.2, white count 9.3, BUN of 10, creatinine 0.90. DIAGNOSTIC IMPRESSION AND PLAN: Patient with MSSA bacteremia, possibly left knee septic arthritis and no other clinical focus of infection. The patient's culture repeat has been negative. have been negative as well. The patient did get his line. He will be transitioning to daptomycin 6 mg/kg for another two 2 weeks as the patient has confusion in the outpatient setting and would not be able to do Cefazolin, which is 3 times a day. Continue supportive care. MMODL / IJN: [id number] /
[2018-08-25] MEDS: ceFAZolin IN SWFI 2 GM/20 ML SYRINGE IVP SCH ×3 (00:34→16:51)
[2018-08-25] MEDS: HYDROmorphone 0.5 MG/0.5 ML SYRINGE IVP PRN ×6 (00:34→20:28)
[2018-08-25] MEDS: HEPARIN SODIUM,PORCINE 5,000 UNIT/ML 1 ML VIAL SQ SCH ×3 (00:35→16:51)
[2018-08-25] MEDS: HYDROcodone/APAP 5-325MG 1 EACH TAB PO PRN ×3 (06:59→19:33)
[2018-08-25] MEDS: metroNIDAZOLE 500 MG TAB PO SCH ×4 (07:01→17:43)
[2018-08-25 08:10] LABS: Basophils # (A) 0.1 k/uL (0-0.2); Basophils % (A) 1 %; Eosinophils # (A) 0.2 k/uL (0-0.7); Eosinophils % (A) 2 %; HCT 38.3 % (39.0-53.0); HGB 11.8 gm/dL (13.0-17.5); Lymphocytes # (A) 2.6 k/uL (1.0-4.8); Lymphocytes % (A) 23 %; MCH 30.3 pg (25.0-35.0); MCHC 30.9 g/dL (31.0-37.0); MCV 98.3 fL (80.0-100.0); Mean Platelet Volume 6.4; Monocytes # (A) 0.6 k/uL (0-1.0); Monocytes % (A) 6 %; Neutrophils # (A) 7.3 k/uL (1.3-7.7); Neutrophils % (A) 65 %; Platelet Count 591 k/uL (150-450); RDW 13.5 % (11.5-15.5); WBC 11.1 k/uL (3.8-10.6)
[2018-08-25] MEDS: PANTOPRAZOLE 40 MG TABLET PO SCH (08:31)
[2018-08-25] MEDS: MELOXICAM 7.5 MG TAB PO SCH (08:31)
[2018-08-25] MEDS: FAMOTIDINE 20 MG TAB PO SCH ×2 (08:31→20:28)
[2018-08-25 08:40] LABS: ALT 52 U/L (21-72); AST 54 U/L (17-59); Albumin 2.9 g/dL (3.5-5.0); Alkaline Phosphatase 89 U/L (38-126); Anion Gap 6 mmol/L; Blood Urea Nitrogen 12 mg/dL (9-20); Calcium 8.7 mg/dL (8.4-10.2); Carbon Dioxide 30 mmol/L (22-30); Chloride 101 mmol/L (98-107); Glucose 84 mg/dL (74-99); Potassium 5.2 mmol/L (3.5-5.1); Sodium 137 mmol/L (137-145); Total Bilirubin 0.4 mg/dL (0.2-1.3); Total Protein 5.7 g/dL (6.3-8.2)
[2018-08-25] MEDS: IPRATROPIUM-ALBUTEROL 3 ML NEB INHALATION SCH ×4 (09:24→20:00)
[2018-08-25] MEDS: SYMBICORT 160-4.5 MCG INHALER INHALATION SCH ×2 (09:25→20:00)
[2018-08-25] MEDS: MULTIVITAMINS, THERA 1 EACH TAB PO SCH (11:10)
[2018-08-25] MEDS: THIAMINE 100 MG TAB PO SCH (11:10)
[2018-08-25] MEDS: FOLIC ACID 1 MG TAB PO SCH (11:10)
[2018-08-25] MEDS: LIDOCAINE 5% PATCH TOPICAL SCH (14:46)
[2018-08-25] MEDS: MELATONIN 3 MG TABLET PO SCH (20:28)
[2018-08-25 22:50] VITALS: RESP 18
--- NOTE | 2018-08-26 00:02 | PN ---
PROGRESS NOTE DATE OF SERVICE: 08/25/2018 REASON FOR FOLLOWUP: MSSA bacteremia and a question of possible left knee septic arthritis. INTERVAL HISTORY: The patient is currently afebrile. He has been breathing comfortably. The patient's left knee pain, swelling and redness has much improved. Denies having any chest pain, shortness of breath, cough. No abdominal pain. No diarrhea. PHYSICAL EXAMINATION: Blood pressure 135/77 with a pulse of 53, temperature of 98. He is 96% on room air. General description is a middle aged male up in the chair in no distress. Respiratory system: Unlabored breathing. Clear to auscultation anteriorly. Heart S1, S2. Regular rate and rhythm. ABDOMEN: Soft, no tenderness. LABS: Hemoglobin is 11.8, white count 11.1 with a BUN of 12, creatinine 1.02. DIAGNOSTIC IMPRESSION AND PLAN: Patient with MSSA bacteremia with concern for possible left septic arthritis with no clinical focus. The patient left knee culture has been negative. In view of bacteremia will need at least 2 weeks of antibiotic from negative blood culture. Which 10 more days with peripheral IV possibly transition to daptomycin because of use of outpatient setting. This will be discussed further with the continuous pillowcase cutter tomorrow. Continue supportive care. MMODL / IJN: [id number] /
[2018-08-26] MEDS: metroNIDAZOLE 500 MG TAB PO SCH ×3 (00:12→11:14)
[2018-08-26] MEDS: HEPARIN SODIUM,PORCINE 5,000 UNIT/ML 1 ML VIAL SQ SCH ×2 (00:13→08:10)
[2018-08-26] MEDS: HYDROmorphone 0.5 MG/0.5 ML SYRINGE IVP PRN ×3 (00:13→11:13)
[2018-08-26] MEDS: ceFAZolin IN SWFI 2 GM/20 ML SYRINGE IVP SCH ×2 (00:14→08:10)
[2018-08-26 06:05] VITALS: BP 133/60; TEMP 97.3
[2018-08-26] MEDS: IPRATROPIUM-ALBUTEROL 3 ML NEB INHALATION SCH ×2 (06:50→11:03)
[2018-08-26] MEDS: SYMBICORT 160-4.5 MCG INHALER INHALATION SCH (06:50)
--- NOTE | 2018-08-26 07:15 | PN ---
PROGRESS NOTE DATE OF SERVICE: 08/26/2018 This is a 48-year-old gentleman admitted with flank pain and as well as degenerative fusion also MSSA sepsis. The patient also had a midline placed. Outpatient antibiotics is planned to be arranged at this time. The possibility of left septic arthritis also a concern. No chest pain. No palpitations. No fever. PHYSICAL EXAM: Alert and oriented x3. Pulse 60, blood pressure is 130/70, respiration 18, temperature 97.2, pulse ox 98% on room air. HEENT: Conjunctivae normal. NECK: No jugular venous distension. CARDIOVASCULAR: S1, S2, muffled. RESPIRATORY: Breath sounds diminished at the bases, no rhonchi, no crackles. ABDOMEN: Soft, nontender. LEGS: No edema, no swelling. NERVOUS SYSTEM: No focal deficits. LABS: WBC 7.1, hemoglobin 11.8, sodium 139, potassium 3.2, albumin is 2.9. ASSESSMENT: 1. Acute methicillin-susceptible Staphylococcus aureus sepsis, possibly secondary from knee joint infection. 2. Severe back pain, possibly due to rib fractures and muscle contusion. 3. Rule out septic arthritis, knee joint. 4. Possible infectious colitis of the right cecal area. 5. History of ETOH. 6. Increased AST, ALT. 7. Normocytic anemia of undetermined etiology. 8. History of chronic obstructive pulmonary disease. 9. History of wrist mesh. 10.History of depression. 11.History of nicotine dependence. RECOMMENDATION: Recommend to continue current management and symptomatic treatment. Dr. Gore is planning long-term IV treatment, IV antibiotics. Guarded prognosis because of multiple complex medical issues. Further recommendations to follow. See orders for details. MMODL / IJN: [id number] /
[2018-08-26] MEDS: THIAMINE 100 MG TAB PO SCH (08:10)
[2018-08-26] MEDS: FAMOTIDINE 20 MG TAB PO SCH (08:10)
[2018-08-26] MEDS: MELOXICAM 7.5 MG TAB PO SCH (08:10)
[2018-08-26] MEDS: FOLIC ACID 1 MG TAB PO SCH (08:10)
[2018-08-26] MEDS: MULTIVITAMINS, THERA 1 EACH TAB PO SCH (08:11)
[2018-08-26] MEDS: PANTOPRAZOLE 40 MG TABLET PO SCH (08:11)
[2018-08-26] MEDS: HYDROcodone/APAP 5-325MG 1 EACH TAB PO PRN (09:50)
[2018-08-26 11:12] LABS: Basophils # (A) 0.1 k/uL (0-0.2); Basophils % (A) 1 %; Eosinophils # (A) 0.2 k/uL (0-0.7); Eosinophils % (A) 2 %; HCT 40.7 % (39.0-53.0); HGB 12.9 gm/dL (13.0-17.5); Lymphocytes # (A) 2.1 k/uL (1.0-4.8); Lymphocytes % (A) 19 %; MCH 30.9 pg (25.0-35.0); MCHC 31.8 g/dL (31.0-37.0); MCV 97.2 fL (80.0-100.0); Mean Platelet Volume 6.3; Monocytes # (A) 0.4 k/uL (0-1.0); Monocytes % (A) 4 %; Neutrophils # (A) 8.1 k/uL (1.3-7.7); Neutrophils % (A) 73 %; Platelet Count 635 k/uL (150-450); RBC 4.19 m/uL (4.30-5.90); RDW 13.6 % (11.5-15.5); WBC 11.1 k/uL (3.8-10.6)
[2018-08-26 11:16] LABS: ALT 55 U/L (21-72); AST 74 U/L (17-59); Albumin 3.4 g/dL (3.5-5.0); Alkaline Phosphatase 93 U/L (38-126); Anion Gap 7 mmol/L; Blood Urea Nitrogen 14 mg/dL (9-20); Calcium 9.1 mg/dL (8.4-10.2); Carbon Dioxide 27 mmol/L (22-30); Chloride 103 mmol/L (98-107); Glucose 113 mg/dL (74-99); Sodium 137 mmol/L (137-145); Total Bilirubin 0.4 mg/dL (0.2-1.3); Total Protein 6.4 g/dL (6.3-8.2)
[2018-08-26 11:18] VITALS: PULSE 74
--- NOTE | 2018-08-26 12:46 | P.PN ---
Progress Note - Text Progress Note Date: 08/26/18 We have been following cultures of the knee aspirate performed on 08/21/18. Culture is still negative at this point. Crystals were never resulted as far as I can see. There is very low suspicion for septic arthritis at this point. We will sign off orthopedically. Please call our office with any questions regarding this patient.
--- NOTE | 2018-08-26 15:27 | PN ---
PROGRESS NOTE DATE OF SERVICE: 08/26/2018 REASON FOR VISIT: MSSA bacteremia. INTERVAL HISTORY: The patient is currently afebrile. He was seen on rounds this morning. Patient is breathing comfortably. Denies having any chest pain, shortness of breath, abdominal pain. Left knee pain has improved. PHYSICAL EXAMINATION: Blood pressure 133/60 with a pulse of 75, temperature 97.3, he is 97% on room air. General description is a middle-aged male, up in the chair in no distress. RESPIRATORY SYSTEM: Unlabored breathing, clear to auscultation anteriorly. HEART: S1, S2. Regular rate and rhythm. ABDOMEN: Soft, no tenderness. LABS: Hemoglobin is 12.8, white count 11.1, BUN of 14, creatinine 0.91. CRP is 49.6, sedimentation rate 83. Blood culture repeat 08/19 has been negative. DIAGNOSTIC IMPRESSION AND PLAN: Patient with methicillin-susceptible Staphylococcus aureus bacteremia. Patient did have significant pain to his left knee with concern for though fluid was aspirated a few days later while the patient was on antibiotic and the culture has been negative. However, no other clinical focus new with bacteremia. Patient will need at least 2 weeks of antibiotic which he will transitioned to daptomycin 6 mg/kg daily as the patient has to come to the infusion center in the outpatient setting and cannot come 3 times a day. All his questions were answered. MMODL / IJN: [id number] /
--- NOTE | 2018-08-27 08:06 | DS ---
DISCHARGE SUMMARY DATE OF SERVICE: 08/26/2018 FINAL DIAGNOSES: 1. Acute methicillin-susceptible Staphylococcus aureus sepsis possibly secondary to a knee joint infection. 2. History of back pain, possibly due to rib fractures muscle contusion. 3. Possible infectious colitis of the right cecal. 4. History of ETOH. 5. Increased AST, ALT. 6. Normocytic anemia of undetermined etiology. 7. History of chronic obstructive pulmonary disease. 8. History of wrist mesh. 9. History of depression. 10.History of nicotine dependence. DISCHARGE DISPOSITION: The patient will be discharged in a stable condition with guarded prognosis. Total time taken is 35 minutes. HISTORY OF PRESENT ILLNESS: This is a 48-year-old gentleman admitted with multiple medical issues as mentioned earlier with the MSSA infection in the knee joint was suspected. Patient received IV antibiotics. Patient improved significantly. Dr. Ocasio saw the patient. A midline was inserted. Patient has seen multiple consultants including Ortho Surgery and rib x-rays also noted and the patient will be discharged in stable condition with guarded prognosis with the following advise: 1. Diet is cardiac diet. 2. Activity limited until followup. 3. Follow up with Dr. Saeed in 2-3 days. 4. Follow up with Dr. Chase and Dr. Ocasio as recommended. DISCHARGE MEDICATIONS: As recommended. 1. [place] 10 mg t.i.d. p.r.n. 2. Symbicort 160/4.5 two puffs b.i.d. 3. Daptomycin 6 mg daily. 4. Pepcid 20 mg b.i.d. 5. Folic acid 1 mg daily. 6. [place] 5 mg q.6 p.r.n. 7. Multivitamin 1 p.o. daily. 8. MiraLAX 17 g daily. 9. Vitamin B 100 mg p.o. daily. Once again, the patient will be discharged in a stable condition with guarded prognosis. MMODL / IJN: [id number] / [facility]
== END 2018-08-26 14:38 | disposition home or self-care (01) | DRG 872 ==
LOC: EC 23:33 → 4SSUR 08-18 00:55 → OBSVTOIN 08-21 13:49 → 4MS4W 08-25 08:09
PROVIDERS: ADMIT Internal Medicine; ATTEND Internal Medicine
PROC: 0S9D3ZX Drainage of Left Knee Joint, Percutaneous Approach, Diagnostic (ICD-10-PCS; principal; 2018-08-21 14:25)
DX: A41.01 Sepsis due to Methicillin susceptible Staphylococcus aureus (principal); J44.1 Chronic obstructive pulmonary disease with (acute) exacerbation; N12 Tubulo-interstitial nephritis, not specified as acute or chronic; A09 Infectious gastroenteritis and colitis, unspecified; M00.9 Pyogenic arthritis, unspecified; E66.01 Morbid (severe) obesity due to excess calories; R65.20 Severe sepsis without septic shock; D64.9 Anemia, unspecified; S39.012A Strain of muscle, fascia and tendon of lower back, initial encounter; S80.212A Abrasion, left knee, initial encounter; M71.162 Other infective bursitis, left knee; M48.061 Spinal stenosis, lumbar region without neurogenic claudication; M25.461 Effusion, right knee; M47.815 Spondylosis without myelopathy or radiculopathy, thoracolumbar region; Z68.32 Body mass index [BMI] 32.0-32.9, adult; F17.200 Nicotine dependence, unspecified, uncomplicated; Z71.6 Tobacco abuse counseling; Z86.59 Personal history of other mental and behavioral disorders; Z82.5 Family history of asthma and other chronic lower respiratory diseases; Z82.49 Family history of ischemic heart disease and other diseases of the circulatory system; W01.0XXA Fall on same level from slipping, tripping and stumbling without subsequent striking against object, initial encounter; Z87.81 Personal history of (healed) traumatic fracture
CPT/HCPCS: 36415; 36569; 71250; 72070; 72110; 72146; 72148; 74176; 76937; 80048; 80053; 81001; 82550; 83605; 85025; 85027; 85652; 86140; 86708; 86803; 87040; 87070; 87077; 87086; 87150; 87186; 87205; 87340; 89050; 93005; 94640; 94760; 96365; 96367; 96368; 96375; 99285

== ENCOUNTER 2019-01-04 13:23 | Inpatient (IN) | payer OTHER ==
[2019-01-04] MEDS ORDERED: SODIUM CHLORIDE 0.9% 1,000 ML IV STA (13:43)
[2019-01-04] MEDS ORDERED: DIPH,PERTUS(ACELL)TETVAC-LF 0.5 ML VIAL IM ONE (13:43)
[2019-01-04] MEDS ORDERED: RABIES VACC,HUMAN DIPLOID (PF) 2.5 UNIT KIT IM ONE (13:44)
[2019-01-04] MEDS ORDERED: AMPICILLIN-SULBACTAM 3 GM in SODIUM CHLORIDE 0.9% 100 ML IVPB STA (13:44)
[2019-01-04] MEDS ORDERED: MORPHINE SULFATE 4 MG/ML SYRINGE IM STA ×2 (13:52)
[2019-01-04] MEDS ORDERED: RABIES IMMUNE GLOB 300 UNIT/ML 5 ML VIAL IM ONE (14:00)
[2019-01-04] MEDS ORDERED: RABIES IMMUNE GLOB 300 UNIT/ML 1 ML VIAL IM ONE (14:00)
[2019-01-04 14:22] LABS: Basophils # (A) 0.1 k/uL (0-0.2); Basophils % (A) 1 %; Eosinophils # (A) 0.1 k/uL (0-0.7); Eosinophils % (A) 1 %; HCT 56.2 % (39.0-53.0); HGB 18.1 gm/dL (13.0-17.5); Lymphocytes # (A) 1.7 k/uL (1.0-4.8); Lymphocytes % (A) 19 %; MCH 31.5 pg (25.0-35.0); MCHC 32.1 g/dL (31.0-37.0); Mean Platelet Volume 6.6; Monocytes # (A) 0.5 k/uL (0-1.0); Monocytes % (A) 5 %; Neutrophils # (A) 6.8 k/uL (1.3-7.7); Neutrophils % (A) 73 %; Platelet Count 293 k/uL (150-450); RBC 5.74 m/uL (4.30-5.90); WBC 9.4 k/uL (3.8-10.6)
[2019-01-04 14:30] LABS: Albumin 4.5 g/dL (3.5-5.0); Calcium 9.7 mg/dL (8.4-10.2); Potassium 4.4 mmol/L (3.5-5.1); Total Bilirubin 2.1 mg/dL (0.2-1.3); Total Protein 7.3 g/dL (6.3-8.2)
[2019-01-04] MEDS ORDERED: HYDROmorphone 0.5 MG/0.5 ML SYRINGE IM STA (14:31)
--- NOTE | 2019-01-04 14:37 | XR ---
EXAMINATION TYPE: XR forearm RT DATE OF EXAM: 01/04/2019 COMPARISON: NONE HISTORY: Hot dog bite with pain Two views of the forearm demonstrate that the osseous structures appear to be intact and the joint sp aces appear to be preserved. There is no acute fracture or dislocation. There is soft tissue edema and emphysema with soft tissue lacerations. IMPRESSION: 1. No acute fracture or dislocation. 2. Soft tissue injury.
[2019-01-04] MEDS ORDERED: HYDROmorphone 0.5 MG/0.5 ML SYRINGE IVP STA (15:26)
[2019-01-04] MEDS ORDERED: NALOXONE 0.4 MG/ML 1 ML VIAL IV PRN (15:35)
[2019-01-04] MEDS ORDERED: ONDANSETRON 4 MG/2 ML VIAL IVP PRN (15:35)
--- NOTE | 2019-01-04 15:38 | ED ---
Animal Bite HPI - General Chief Complaint: Animal Bite Stated Complaint: Dog Bite Time Seen by Provider: 01/04/19 13:35 Source: patient Mode of arrival: wheelchair Limitations: no limitations - History of Present Illness Initial Comments: 48-year-old male presenting today for chief complaint of multiple dog bites to the right forearm. Patient states just prior to arrival he was in [facility] moving on his home when a stray pimple with a cervical collar on it ran towards him biting his right forearm. He denies dark shaking his head injury to the shoulder. He states he has multiple punctures he states some or very deep. He is unsure his last tetanus. He states instead of going to the hospital near there are he presented to [facility] here on because he is moving to the area. Patient denies numbness tingling or loss sensation of the right forearm or hand. He denies any coolness or pallor of the extremity he states bleeding is has been controlled since the bite. Patient denies any other area of bites he says are about 6 deep punctures. Remaining review of systems negative patient denies falling or head injury. - Related Data Home Medications Medication Instructions Recorded Confirmed No Known Home Medications 01/04/19 01/04/19 Allergies Allergy/AdvReac Type Severity Reaction Status Date / Time No Known Allergies Allergy Verified 01/04/19 13:33 Review of Systems ROS Statement: Those systems with pertinent positive or pertinent negative responses have been documented in the HPI. ROS Other: All systems not noted in ROS Statement are negative. Past Medical History Past Medical History: COPD History of Any Multi-Drug Resistant Organisms: None Reported Additional Past Surgical History / Comment(s): wire mesh in head on R side Past Psychological History: Depression Smoking Status: Current some day smoker Past Alcohol Use History: None Reported Past Drug Use History: None Reported - Past Family History Father Family Medical History: COPD, Myocardial Infarction ([place]) Mother Family Medical History: No Reported History General Exam - General Exam Comments Initial Comments: General: The patient is awake and alert, in no distress, and does not appear acutely ill. Eye: Pupils are equal, round and reactive to light, extra-ocular movements are intact. No nystagmus. There is normal conjunctiva bilaterally. No signs of icterus. Ears, nose, mouth and throat: There are moist mucous membranes and no oral lesions. Neck: The neck is supple, there is no tenderness or JVD. Cardiovascular: There is a regular rate and rhythm. No murmur, rub or gallop is appreciated. Respiratory: Lungs are clear to auscultation, respirations are non-labored, breath sounds are equal. No wheezes, stridor, rales, or rhonchi. Gastrointestinal: Soft, non-distended, non-tender abdomen without masses or organomegaly noted. There is no rebound or guarding present. No CVA tenderness. Bowel sounds are unremarkable. Musculoskeletal: Normal ROM, no tenderness. Strength 5/5. Sensation intact. Radial pulses equal bilaterally 2+. Neurological: A&O x 3. CN II-XII intact, There are no obvious motor or sensory deficits. Coordination appears grossly intact. Speech is normal. Skin: Skin is warm and dry and no rashes or lesions are noted. 2x3cm very deep laceration of dorsal aspect of forearm exposing muscle sheeth, second similar laceration in terms of depth 1x4cm. A third large puncture 1cmx1/2 cm more dista l of left forarm. Multiple small < 1cm puncutres of dorsum of forearm, 3 additional. On the ventral aspect there are 3 1x1/2cm laceration of the left forearm. No active bleeding. Psychiatric: Cooperative, appropriate mood & affect, normal judgment. Limitations: no limitations Course Vital Signs 01/04/19 01/04/19 01/04/19 13:25 14:45 15:51 Temperature 98.4 F 97.8 F Pulse Rate 68 76 76 Respiratory 20 16 16 Rate Blood Pressure 161/93 141/98 134/92 O2 Sat by Pulse 97 97 92 L Oximetry Medical Decision Making - Medical Decision Making 48-year-old male presenting for dog bite of right forearm. Multiple very deep punctures of the right forearm with the largest to being 2 x 3 cm, 4 x 1 cm with exposure of the muscle sheath with most likely penetration of the muscle sheath. Imaging studies reveal air tracking along muscles. No osseous injury with large soft tissue deformities. Patient's tetanus was updated. Patient is neurovascularly intact. Able to range at the right elbow and right wrist with full sensation distal to injury site strong radial pulses equal comparison bilaterally of the upper extremities. Rabies prophylaxis was initiated. I injected around wound sites, after 2 L irrigation of puncture wounds under pressure. Sterile bandage applied. Pt given IV analagesics for pain during and post procedure. At this time I feel patient should be admitted for further surgical debridment and irrigation and closure. Pt is at high risk of infection. Unasyn was initialed QID. Initial dose in emergency department. Rabies prophylaxis is to be continued on the floor, and after discharge. Dr. Camara accepted admission. Basic labs were obtained for surgical clearance. Pt has had NPO for the past 6 hours. Pt agreeable with plan and admission. Dr. Orellana spoke with Dr. Camara and evaluated the patient in person. - Lab Data Result diagrams: 01/04/19 14:07 01/04/19 14:07 Lab Results 01/04/19 01/04/19 Range/Units 14:07 14:07 WBC 9.4 (3.8-10.6) k/uL RBC 5.74 (4.30-5.90) m/uL Hgb 18.1 H (13.0-17.5) gm/dL Hct 56.2 H (39.0-53.0) % MCV 98.0 (80.0-100.0) fL MCH 31.5 (25.0-35.0) pg MCHC 32.1 (31.0-37.0) g/dL RDW 15.0 (11.5-15.5) % Plt Count 293 (150-450) k/uL Neutrophils % 73 % Lymphocytes % 19 % Monocytes % 5 % Eosinophils % 1 % Basophils % 1 % Neutrophils # 6.8 (1.3-7.7) k/uL Lymphocytes # 1.7 (1.0-4.8) k/uL Monocytes # 0.5 (0-1.0) k/uL Eosinophils # 0.1 (0-0.7) k/uL Basophils # 0.1 (0-0.2) k/uL Sodium 140 (137-145) mmol/L Potassium 4.4 (3.5-5.1) mmol/L Chloride 106 (98-107) mmol/L Carbon Dioxide 25 (22-30) mmol/L Anion Gap 9 mmol/L BUN 13 (9-20) mg/dL Creatinine 1.13 (0.66-1.25) mg/dL Est GFR (CKD-EPI)AfAm 88 (>60 ml/min/1.73 sqM) Est GFR (CKD-EPI)NonAf 76 (>60 ml/min/1.73 sqM) Glucose 95 (74-99) mg/dL Calcium 9.7 (8.4-10.2) mg/dL Total Bilirubin 2.1 H (0.2-1.3) mg/dL AST 36 (17-59) U/L ALT 29 (21-72) U/L Alkaline Phosphatase 104 (38-126) U/L Total Protein 7.3 (6.3-8.2) g/dL Albumin 4.5 (3.5-5.0) g/dL Disposition Clinical Impression: Dog bite of multiple sites, Dog bite of right forearm Disposition: ADMITTED IP TO THIS [facility] Condition: Stable Instructions (If sedation given, give patient instructions): Animal Bite (ED) Is patient prescribed a controlled substance at d/c from ED?: No Referrals: None,Stated [Primary Care Provider] - 1-2 days Time of Disposition: 15:35 Decision to Admit Reason: Admit from EC Decision Date: 01/04/19 Decision Time: 15:35
[2019-01-04] MEDS ORDERED: SODIUM CHLORIDE 0.9% IRRIG 1,000 ML BTL IRRIGATION ONE (16:25)
[2019-01-04 17:27] VITALS: BMI 31.0
[2019-01-04] MEDS: SODIUM CHLORIDE 0.9% 1,000 ML IV SCH (17:31)
[2019-01-04] MEDS: AMPICILLIN-SULBACTAM 3 GM in SODIUM CHLORIDE 0.9% 100 ML IVPB SCH (18:59)
[2019-01-04] MEDS: HYDROmorphone 1 MG/ML 1 ML SYRINGE IVP PRN ×2 (18:59→22:00)
[2019-01-05] MEDS: HYDROmorphone 1 MG/ML 1 ML SYRINGE IVP PRN ×7 (01:04→21:32)
[2019-01-05] MEDS: SODIUM CHLORIDE 0.9% 1,000 ML IV SCH ×2 (01:15→12:59)
[2019-01-05] MEDS: AMPICILLIN-SULBACTAM 3 GM in SODIUM CHLORIDE 0.9% 100 ML IVPB SCH ×4 (01:44→19:29)
[2019-01-05 12:09] LABS: HCT 45.7 % (39.0-53.0); HGB 15.4 gm/dL (13.0-17.5); MCH 33.2 pg (25.0-35.0); MCHC 33.7 g/dL (31.0-37.0); MCV 98.5 fL (80.0-100.0); Macrocytosis Slight; Mean Platelet Volume 7.2; Platelet Count 257 k/uL (150-450); RBC 4.64 m/uL (4.30-5.90); RDW 15.8 % (11.5-15.5); WBC 7.8 k/uL (3.8-10.6)
--- NOTE | 2019-01-05 14:32 | P.HPIM ---
History of Present Illness H&P Date: 01/05/19 Chief Complaint: dog bite CHIEF COMPLAINT: dog bite HISTORY OF PRESENT ILLNESS: 48-year-old male who presented to the ER after he wa s attacked by a stray dog in [place] yesterday. Patient states he is moving to the area and was in the process of moving his belongings when a dog, possibly a pitbull per patient, ran at him and latched onto the patient's right arm. Patients wounds were irrigated in the ER. He received tetanus and rabies vaccine. No loss of motor strength or sensation. PAST MEDICAL HISTORY: See list. PAST SURGICAL HISTORY: See list. SOCIAL HISTORY: No illicit drug use. REVIEW OF SYSTEMS: CONSTITUTIONAL: Denies fever or chills. HEENT: Denies blurred vision, vision changes, or eye pain. Denies hemoptysis CARDIOVASCULAR: Denies chest pain or pressure. RESPIRATORY: No shortness of breath. GASTROINTESTINAL: Denies nausea or vomiting. HEMATOLOGIC: Denies bleeding disorders. GENITOURINARY: Denies any blood in urine. SKIN: Multiple lacerations to right upper arm PHYSICAL EXAM: VITAL SIGNS: Reviewed. GENERAL: Well-developed in no acute distress. HEENT: No sclera icterus. Extraocular movements grossly intact. Moist buccal mucosa. Head is atraumatic, normocephalic. ABDOMEN: Soft. Nondistended. Nontender. NEUROLOGIC: Alert and oriented. Cranial nerves II through XII grossly intact. SKIN: Multiple lacerations to right forearm ASSESSMENT: 1. Dog bites of multiple sites on right forearm PLAN: 1. Continue antibiotics 2. Continue Dr. Kelly for wound care management 3. No surgical intervention 4. Anticipate discharge tomorrow Nurse practitioner note has been reviewed by physician. Signing provider agrees with the documented findings, assessment, and plan of care. Past Medical History Past Medical History: COPD Additional Past Medical History / Comment(s): dog bite right forearm History of Any Multi-Drug Resistant Organisms: None Reported Additional Past Surgical History / Comment(s): wire mesh in head on R side Past Psychological History: Depression Smoking Status: Current every day smoker Past Alcohol Use History: None Reported Past Drug Use History: None Reported - Past Family History Father Family Medical History: COPD, Myocardial Infarction ([place]) Mother Family Medical History: No Reported History Medications and Allergies Home Medications Medication Instructions Recorded Confirmed Type No Known Home Medications 01/04/19 01/04/19 History Allergies Allergy/AdvReac Type Severity Reaction Status Date / Time No Known Allergies Allergy Verified 01/04/19 13:33 Physical Exam Vitals: Vital Signs Temp Pulse Pulse Resp BP BP Pulse Ox 01/05/19 11:27 98.3 F 69 18 145/91 98 01/05/19 05:00 97.4 F L 76 17 130/94 96 01/04/19 21:00 97.9 F 71 17 149/87 96 01/04/19 17:22 97.8 F 75 22 155/83 95 01/04/19 16:43 98 F 77 16 144/92 96 01/04/19 15:51 76 16 134/92 92 L 01/04/19 14:45 97.8 F 76 16 141/98 97 Intake and Output 01/04/19 01/05/19 01/05/19 22:59 06:59 14:59 Intake Total 1460 900 Balance 1460 900 Intake: Intake, IV Titration 500 900 Amount Ampicillin-Sulbactam 3 gm 100 In Sodium Chloride 0.9% 100 ml @ 200 mls/hr IVPB ONCE STA Rx#:[id number] Ampicillin-Sulbactam 3 gm 400 100 In Sodium Chloride 0.9% 100 ml @ 200 mls/hr IVPB Q6H JUN Rx#:[id number] Sodium Chloride 0.9% 1, 800 000 ml @ 100 mls/hr IV . Q10H JUN Rx#:[id number] Oral 960 Other: # Voids 1 1 Results CBC & Chem 7: 01/05/19 11:46 01/04/19 14:07 Labs: Abnormal Lab Results - Last 24 Hours (Table) 01/04/19 01/04/19 01/05/19 Range/Units 14:07 14:07 11:46 Hgb 18.1 H (13.0-17.5) gm/dL Hct 56.2 H (39.0-53.0) % RDW 15.8 H (11.5-15.5) % Total Bilirubin 2.1 H (0.2-1.3) mg/dL Thrombosis Risk Factor Assmnt - Choose All That Apply Each Factor Represents 1 point: Abnormal pulmonary function (COPD), Age 41-60 years Other Risk Factors: No Other congenital or acquired thrombophilia - If yes, enter type in comment: No Thrombosis Risk Factor Assessment Total Risk Factor Score: 2 Thrombosis Risk Factor Assessment Level: Low Risk
[2019-01-05] MEDS ORDERED: LORazepam 2 MG/ML INJ IV PRN (20:43)
[2019-01-06] MEDS ORDERED: HYDROmorphone 1 MG/ML 1 ML SYRINGE ONE ×2 (00:30)
[2019-01-06] MEDS ORDERED: LORazepam 2 MG/ML INJ ONE (00:30)
[2019-01-06] MEDS: SODIUM CHLORIDE 0.9% 1,000 ML IV SCH ×2 (05:03→08:11)
[2019-01-06] MEDS: AMPICILLIN-SULBACTAM 3 GM in SODIUM CHLORIDE 0.9% 100 ML IVPB SCH ×3 (05:04→15:27)
[2019-01-06] MEDS: HYDROmorphone 1 MG/ML 1 ML SYRINGE IVP PRN ×3 (06:38→12:50)
--- NOTE | 2019-01-06 11:16 | P.PN ---
Subjective Progress Note Date: 01/06/19 CHIEF COMPLAINT: dog bite HISTORY OF PRESENT ILLNESS: Patient examined at the bedside. Patient reports pain is controlled at this time. Patients right arm slightly more swollen than yesterday. He reports numbness and tingling to right arm, which he denied yesterday. Motor strength intact. PHYSICAL EXAM: VITAL SIGNS: Reviewed. GENERAL: Well-developed in no acute distress. HEENT: No sclera icterus. Extraocular movements grossly intact. Moist buccal mucosa. Head is atraumatic, normocephalic. ABDOMEN: Soft. Nondistended. Nontender. NEUROLOGIC: Alert and oriented. Cranial nerves II through XII grossly intact. SKIN: Multiple lacerations to right forearm. Extremity swollen. ASSESSMENT: 1. Dog bites of multiple sites on right forearm PLAN: 1. Continue antibiotics 2. Consult Dr. Kelly for wound care management 3. No surgical intervention 4. Consult orthopedics to evaluate extremity due to numbness/tingling 5. Rabies vaccine series Nurse practitioner note has been reviewed by physician. Signing provider agrees with the documented findings, assessment, and plan of care. Objective - Vital Signs Vital signs: Vital Signs Temp 97.5 F L 01/06/19 04:57 Pulse 71 01/06/19 04:57 Resp 18 01/06/19 04:57 BP 163/96 01/06/19 04:57 Pulse Ox 96 01/06/19 04:57 Intake & Output 01/05/19 01/06/19 01/06/19 18:59 06:59 18:59 Intake Total 100 1360 Balance 100 1360 Intake: Intake, IV Titration 100 400 Amount Ampicillin-Sulbactam 3 gm 100 100 In Sodium Chloride 0.9% 100 ml @ 200 mls/hr IVPB Q6H [facility] Rx#:[id number] Sodium Chloride 0.9% 1, 300 000 ml @ 100 mls/hr IV . Q10H [facility] Rx#:[id number] Oral 960 Other: # Voids 1 - Labs CBC & Chem 7: 01/05/19 11:46 01/04/19 14:07 Labs: Abnormal Lab Results - Last 24 Hours (Table) 01/05/19 Range/Units 11:46 RDW 15.8 H (11.5-15.5) %
[2019-01-06] MEDS ORDERED: KETOROLAC 30 MG/ML 1 ML VIAL IVP SCH (12:00)
--- NOTE | 2019-01-06 13:21 | P.CNOR ---
History of Present Illness - [facility] Consult date: 01/06/19 Consult reason: other History of present illness: Patient is a 48-year-old male who is seen and evaluated by bedside. Patient was admitted to [facility] 2 days ago after sustaining a significant dog bite to his right forearm. Patient was apparently and try at the time of the injury, he was moving out of his house. Dog latched onto his right forearm putting a multiple times, he was able to get away from the dog. Patient reported to [facility] because is moving to this area. Patient was admitted to internal medicine with multiple consults placed. Apparently the emergency room staff did irrigate the wounds and bandage. Consults in place for wound care. Patient was evaluated at bedside today by myself and Dr. Naqvi. He notes some numbness and tingling throughout the forearm, his sensation to light touch throughout all fingers and wrist are intact. Patient's been on IV antibiotics since his admission. He denies any fevers or chills at this time. There is some discomfort in the forearm with movement of the hand and wrist. Patient denies any other orthopedic complaints this time Review of Systems Constitutional: Reports as per [facility] Past Medical History Past Medical History: COPD Additional Past Medical History / Comment(s): dog bite right forearm History of Any Multi-Drug Resistant Organisms: None Reported Additional Past Surgical History / Comment(s): wire mesh in head on R side Past Psychological History: Depression Smoking Status: Current every day smoker Past Alcohol Use History: None Reported Past Drug Use History: None Reported - Past Family History Father Family Medical History: COPD, Myocardial Infarction ([place]) Mother Family Medical History: No Reported History Medications and Allergies Home Medications Medication Instructions Recorded Confirmed Type No Known Home Medications 01/04/19 01/04/19 History Allergies Allergy/AdvReac Type Severity Reaction Status Date / Time No Known Allergies Allergy Verified 01/04/19 13:33 Physical Examination Right upper extremity: Multiple puncture wounds noted on the dorsal and volar side of the forearm. There is a large 2 x 3 cm open wound on the dorsal radial side with exposed muscle belly. Soft tissue swelling noted throughout the forearm, compartments remain soft. Patient is able to wiggle all the fingers and minimal difficulty, his sensation to light touch throughout those digits are intact. He does note some numbness and tingling throughout areas of the forearm. He denies any pain involving the elbow. His radial pulses 2+. The skin is warm touch Results - Labs Labs: H & H 01/04/19 01/05/19 Range/Units 14:07 11:46 Hgb 18.1 H 15.4 (13.0-17.5) gm/dL Hct 56.2 H 45.7 (39.0-53.0) % Result Diagrams: 01/05/19 11:46 01/04/19 14:07 - Diagnostic results Wrist/Hand x-ray: report reviewed, image reviewed Assessment and Plan Plan: Imaging: X-rays of the right forearm were reviewed. Images demonstrated no acute fractures or dislocations. Obvious soft tissue injury is present Assessment: 1. Right forearm 2 cm x 3 cm radial dorsal puncture wound/skin defect 2. Multiple right forearm puncture wounds 3. Status post dog bite Plan: Dr. Naqvi was available today to examine the patient and discussed treatment options. No signs of infection involving any of the wounds at this time. Recommend local wound care With the larger wound on the radial dorsal aspect of the forearm with muscle exposure, recommend plastic surgery consult for skin coverage options Recommend icing and elevating No orthopedic surgical intervention at this time We will be available for any further questions regarding this patient Time with Patient: Less than 30
[2019-01-06 14:42] VITALS: BP 143/93; PULSE 73; RESP 16; TEMP 97.2
--- NOTE | 2019-01-06 15:04 | P.DS ---
Providers Date of admission: 01/04/19 16:08 Expected date of discharge: 01/06/19 Attending physician: Irineo Camara Consults: 01/05/19 11:38 Consult Physician Routine Consulting Provider: Ralph Kelly Consult Reason/Comments: dog bite/wound care Do you want consulting provider notified?: Yes 01/06/19 10:59 Consult Physician Routine Consulting Provider: Oliverio Campos Consult Reason/Comments: numbness/tingling of right arm s/p dog bite Do you want consulting provider notified?: Yes Primary care physician: Stated None Hospital Course: 48-year-old male who presented to the ER after he was attacked by a stray dog in [place]. Patients wounds irrigated in the ER. Received rabies and tetanus vaccine. Patient received IV antibiotics during hospitalization. Evaluated by Dr. Kelly who recommends aquacel to open wound. patient will follow up with Dr. Kelly in wound care center. Patient evaluated by orthopedics. No intervention from their standpoint. Recommended plastic surgery consultation. Patient advised to establish with PCP for further management of wounds along with wound care center follow up. Patient given rx for continuation of rabies vaccinations which he needs to get on day 3, 7, and 14 from initial injection. Patient stable for discharge home today. Please see EMR for further hospital course details. Discharge Diagnosis: 1. Dog bites of multiple sites on right forearm Nurse practitioner note has been reviewed by physician. Signing provider agrees with the documented findings, assessment, and plan of care. Patient Condition at Discharge: Stable Plan - Discharge Summary Discharge Rx Participant: Yes New Discharge Prescriptions: New Amoxicillin/Potassium Clav [Augmentin 875-125 Tablet] 1 tab PO Q12HR #14 tab Hydrocodone/Acetaminophen [[place] 5-325] 1 tab PO Q4HR PRN 3 Days #18 tab PRN Reason: Pain Discharge Medication List Amoxicillin/Potassium Clav [Augmentin 875-125 Tablet] 1 tab PO Q12HR #14 tab 01/06/19 [Rx] Hydrocodone/Acetaminophen [[place] 5-325] 1 tab PO Q4HR PRN 3 Days #18 tab 01/06/19 [Rx] Follow up Appointment(s)/Referral(s): [facility], [NON-STAFF] - [facility],. [NON-STAFF] - 01/14/19 9:15 am Patient Instructions/Handouts: Hydrocodone/Acetaminophen (By mouth), Amoxicillin/Clavulanate Potassium (By mouth), Animal Bite (ED) Activity/Diet/Wound Care/Special Instructions: Pack small wound on right arm with Aquacel silver daily Wrap arm with gauze daily and as needed Follow up with Dr. Kelly next in the wound care center Rabies vaccine performed on 01/04/2019. You will need follow up injections 3, 7, 14 days after injection. These may be completed at health department. Follow up with your primary care physician in one week.
--- NOTE | 2019-01-06 15:40 | P.CONS ---
History of Present Illness - Reason for Consult Consult date: 01/06/19 Wound care management Requesting physician: Irineo Camara - Chief Complaint Multiple puncture wounds from dog bite - History of Present Illness This is a 48-year-old gentleman who sustained multiple puncture wounds from stray dog of right forearm. Received initial rabies vaccination and tetanus in the ER as well as irrigation. Denies fevers or chills. Positive fine motor skills. This morning reports numbness and tingling of the affected extremity with increased dependent swelling. Pain controlled. Multiple puncture wounds present on both dorsal and ventral side of right forearm, most deepest noted at the distal aspect of the dorsal arm. Measurements pending, being obtained by nursing. Aquacel silver recommended for wound care. Continue on IV antibiotic therapy. Orthopedic evaluation pending. Afebrile, normal WBC. Right forearm x-rays reporting no acute fractures or dislocations, soft tissue injury. Review of Systems Review of systems: CONSTITUTIONAL: No fever, no malaise, no fatigue. HEENT: No recent visual problems or hearing problems. Denied any sore throat. CARDIOVASCULAR: No chest pain, orthopnea, PND, no palpitations, no syncope. PULMONARY: No shortness of breath, no cough, no hemoptysis. GASTROINTESTINAL: No diarrhea, no nausea, no vomiting, no abdominal pain. Normoactive bowel sounds. NEUROLOGICAL: No headaches, no weakness, no numbness. HEMATOLOGICAL: Denies any bleeding or petechiae. GENITOURINARY: Denies any burning micturition, frequency, or urgency. MUSCULOSKELETAL/RHEUMATOLOGICAL: Positive right forearm muscle pain with swelling, denies joint pain. Denies elbow pain. SKIN: Multiple lacerations to right forearm both dorsal and ventral sides ENDOCRINE: Denies any polyuria or polydipsia. PSYCHIATRIC: No anxiety, no depression The rest of the 14 point review of systems is negative Past Medical History Past Medical History: COPD Additional Past Medical History / Comment(s): dog bite right forearm History of Any Multi-Drug Resistant Organisms: None Reported Additional Past Surgical History / Comment(s): wire mesh in head on R side Past Psychological History: Depression Smoking Status: Current every day smoker Past Alcohol Use History: None Reported Past Drug Use History: None Reported - Past Family History Father Family Medical History: COPD, Myocardial Infarction ([place]) Mother Family Medical History: No Reported History Medications and Allergies Home Medications Medication Instructions Recorded Confirmed Type Amoxicillin/Potassium Clav 1 tab PO Q12HR #14 tab 01/06/19 Rx [Augmentin 875-125 Tablet] Hydrocodone/Acetaminophen [[place] 1 tab PO Q4HR PRN 3 Days #18 tab 01/06/19 Rx 5-325] Allergies Allergy/AdvReac Type Severity Reaction Status Date / Time No Known Allergies Allergy Verified 01/04/19 13:33 Physical Exam Vitals: Vital Signs Temp Pulse Resp BP Pulse Ox 01/06/19 13:00 97.2 F L 73 16 143/93 95 01/06/19 08:00 71 18 01/06/19 04:57 97.5 F L 71 18 163/96 96 01/05/19 20:41 18 01/05/19 20:22 97.5 F L 68 18 158/89 95 Intake and Output 01/06/19 01/06/19 01/06/19 06:59 14:59 22:59 Intake Total 1939 Balance 1939 Intake: Intake, IV Titration 500 Amount Ampicillin-Sulbactam 3 gm 100 In Sodium Chloride 0.9% 100 ml @ 200 mls/hr IVPB Q6H [facility] Rx#:[id number] Sodium Chloride 0.9% 1, 400 000 ml @ 100 mls/hr IV . Q10H [facility] Rx#:[id number] Oral 1440 Other: Voiding Method Toilet # Voids 1 3 PHYSICAL EXAM: VITAL SIGNS: As above GENERAL: Sitting up in bed, no acute distress HEENT: Conjunctivae normal. eyes normal. Oral mucosa moist NECK: No JVD. No thyroid enlargement. No LNs CARDIOVASCULAR: S1, S2 muffled. No murmur RESPIRATION: Breath sounds diminished in the bases. No rhonchi or crackles. No bronchial breathing. ABDOMEN: Soft, nontender . No guarding. no masses palpable. Bowel sounds heard. LEGS: No edema. no swelling PSYCHIATRY: Alert and oriented -3, mood and affect normal. NERVOUS SYSTEM: Cranial N 2-12 grossly normal. Moves all 4 limbs. Diffuse weakness No focal deficits. No sensory deficit. Skin: Right forearm soft with multiple puncture wounds both dorsal and ventral sides, largest noted on distal dorsal, approximately 2 x 3 cm with exposed muscle, measurements currently being obtained, serosanguineous drainage, positive edema, positive radial pulse, 2+. Gross and Fine motor movement present. Results CBC & Chem 7: 01/05/19 11:46 01/04/19 14:07 Assessment and Plan Assessment: -Multiple puncture wounds of right forearm secondary to dog bite; the largest approximately 2 x 3 cm distal dorsal-radial. -COPD, chronic -Ongoing nicotine dependence Plan: Continue current medication regime ,monitoring and symptomatic treatment. Maintain IV antibiotic therapy. Requested measurements of wounds-currently being obtained. Orthopedic evaluation pending. Pain management as per primary. Smoking cessation readdressed. Nicotine patches recommended. Thank you Dr. Camara for the consult, patient may follow up in [facility] next week. Patient will need to complete outpatient rabies series. The impression and plan of care has been dictated as directed. : I performed a history and examination of this patient, discussed the same with the dictator. I agree with the dictator's note ,documented as a scribe. Any additional findings or plans will be noted. Time taken: 35 minutes
== END 2019-01-06 15:20 | disposition home health service (06) | DRG 605 ==
LOC: EC 13:23 → 3NMEDONC 16:08
PROVIDERS: ADMIT Surgery; ATTEND Surgery
PROC: 3E0234Z Introduction of Serum, Toxoid and Vaccine into Muscle, Percutaneous Approach (ICD-10-PCS; principal; 2019-01-04)
PROC: 3E0234Z Introduction of Serum, Toxoid and Vaccine into Muscle, Percutaneous Approach (ICD-10-PCS; 2019-01-04)
DX: S51.851A Open bite of right forearm, initial encounter (principal); W54.0XXA Bitten by dog, initial encounter; F32.9 Major depressive disorder, single episode, unspecified; F17.210 Nicotine dependence, cigarettes, uncomplicated; J44.9 Chronic obstructive pulmonary disease, unspecified; Z23 Encounter for immunization; Z82.49 Family history of ischemic heart disease and other diseases of the circulatory system; Z82.5 Family history of asthma and other chronic lower respiratory diseases
CPT/HCPCS: 36415; 80053; 85025; 85027; 90375; 90675; 90715

== ENCOUNTER → 2020-02-22 | Outpatient (CLI) | payer OTHER | END | disposition home or self-care (01) | LOC: LABWHC1 09:44 | DX: R68.89 Other general symptoms and signs (principal) ==

== ENCOUNTER → 2021-06-05 | Outpatient (CLI) | payer OTHER ==
--- NOTE | 2021-06-05 15:12 | US ---
EXAMINATION TYPE: US kidneys/renal and bladder DATE OF EXAM: 06/05/2021 COMPARISON: CT August 22, 2018 CLINICAL HISTORY: R10.9 Flank pain. EXAM MEASUREMENTS: Right Kidney: 11.6x5.9x6.4 cm Left Kidney: 12.4x6.4x5.4 cm Right Kidney: wnl Left Kidney: wnl Bladder: wnl Bilateral Jets seen: Yes There is no evidence for hydronephrosis at this point in time. No nephrolithiasis is seen. No rome s are identified. The urinary bladder is satisfactorily distended. Bilateral ureteral jets are seen . IMPRESSION: Unremarkable study.
== END | disposition home or self-care (01) ==
LOC: RADUSWWP 14:40
PROVIDERS: ATTEND Family Medicine
DX: R10.9 Unspecified abdominal pain (principal)
CPT/HCPCS: 76770

== ENCOUNTER 2023-01-21 17:49 | Emergency (ER) | payer OTHER ==
[2023-01-21 18:11] VITALS: TEMP 98.4
--- NOTE | 2023-01-21 18:11 | ED ---
General Adult HPI - General Source: RN notes reviewed <Joanna Pena - Last Filed: 01/21/23 18:10> - General Source: patient, family, RN notes reviewed, old records reviewed <Mesfin Lopez - Last Filed: 01/21/23 22:04> - General Chief complaint: Upper Respiratory Infection Stated complaint: left arm numbness Time Seen by Provider: 01/21/23 18:10 - History of Present Illness Initial comments: 52-year-old male with a past medical history of COPD presents the emergency department with a chief complaint of left arm numbness that started approximately 4:00 this afternoon. Patient denies personal history of seizure or stroke. Denies anticoagulant use. Denies trauma or injury. Denies chest pain or shortness of breath. he is complaining of accompanying dizziness. (Joanna Pena) Patient initially presents as a quick note. Patient has a history of COPD, has been dealing with worsening cough, and then also had left arm numbness that has been coming and going and worse with coughing. No other neurological deficits. States he becomes dizzy when he coughs a lot. Sometimes he loses his balance when he coughs a lot. This is all a chronic process. 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 Has been having intermittent left arm numbness and weakness for "a long time" and cannot get surgery until he stopped smoking. The symptoms are not new, however he presents today for further evaluation because he states that it seems slightly more severe today after coughing episode. Currently has no complaints when I evaluated the patient. Workup was started in triage as a quick note. I do disagree with the above assessment as it states that it was sudden onset of left arm numbness, and despite this being the case he does have a history of recurrent left arm numbness which sounds like a radiculopathy from a known degenerative cervical spine. Has received multiple treatments for bronchitis over the last month. Presents for further evaluation at this time. Patient did state in triage that he has shaking of his arms when coughing sometimes which also is a chronic process is that occurred today and has occurred in the past. States it usually occurs after a severe coughing fit. (Mesfin Lopez) - Related Data Previous Rx's Medication Instructions Recorded Amoxicillin/Potassium Clav 1 tab PO Q12HR #14 tab 01/06/19 [Augmentin 875-125 Tablet] Hydrocodone/Acetaminophen [[place] 1 tab PO Q4HR PRN 3 Days #18 tab 01/06/19 5-325] Ketorolac [Toradol] 10 mg PO Q6HR #40 tab 01/21/19 Amoxic-Pot Clav 875-125Mg 1 tab PO Q12HR 7 Days #14 tab 01/21/23 [Augmentin 875-125] predniSONE [Deltasone] 40 mg PO DAILY 5 Days #10 tab 01/21/23 Allergies Allergy/AdvReac Type Severity Reaction Status Date / Time No Known Allergies Allergy Verified 01/21/23 18:11 Review of Systems ROS Other: All systems not noted in ROS Statement are negative. <Joanna Pena - Last Filed: 01/21/23 18:10> ROS Other: All systems not noted in ROS Statement are negative. <Mesfin Lopez - Last Filed: 01/21/23 22:04> ROS Statement: Those systems with pertinent positive or pertinent negative responses have been documented in the HPI. Review of Systems: CONST: Denies fever EYES: Denies blurry vision ENT: Denies nasal congestion C/V: Denies Chest pain RESP: Endorses shortness of breath, cough GI: Denies abdominal pain : Denies dysuria SKIN: Denies rash. MSK: Denies joint pain. NEURO: Endorses chronic intermittent left arm numbness (Mesfin Lopez) Past Medical History Past Medical History: COPD Additional Past Medical History / Comment(s): dog bite right forearm History of Any Multi-Drug Resistant Organisms: None Reported Additional Past Surgical History / Comment(s): wire mesh in head on R side Past Psychological History: Depression Past Alcohol Use History: None Reported Past Drug Use History: None Reported - Past Family History Father Family Medical History: COPD, Myocardial Infarction ([place]) Mother Family Medical History: No Reported History <Joanna Pena - Last Filed: 01/21/23 18:10> General Exam <Joanna Pena - Last Filed: 01/21/23 18:10> <Mesfin Lopez - Last Filed: 01/21/23 22:04> - General Exam Comments Initial Comments: Visual Physical Exam Vital signs reviewed General: Well-appearing, nontoxic, no acute distress. Head: Normocephalic, atraumatic Eyes: PERRLA, EOMI ENT: Airway patent Chest: Nonlabored breathing Skin: No visual rash, normal skin tone Neuro: Alert and oriented 3 Musculoskeletal: No gross abnormalities (Joanna Pena) General: Appears in no acute distress. HEAD: Normal with no signs of head trauma. EYES: PERRLA, EOMI, conjunctiva normal, no discharge. ENT: Hearing grossly intact, normal oropharynx. RESPIRATORY: Clear breath sounds bilaterally. No wheezes, rales, or rhonchi. Mild bilateral end expiratory wheezing. No increased work of breathing. C/V: Regular rate and rhythm. S1 and S2 auscultated, no edema, peripheral pulses 2+ and intact throughout ABD: Abd is soft, nontender, nondistended EXT: Normal range of motion, no obvious deformity SKIN: No rashes or lesions observed on exposed skin. NEURO: Alert and oriented x 4. Cranial nerves II-XII intact. No focal sensory or strength deficits. No objective numbness or weakness in any extremity. NIH of 0. GCS of 15. (Mesfin Lopez) Course Vital Signs 01/21/23 01/21/23 01/21/23 18:06 18:32 18:54 Temperature 98.4 F Pulse Rate 89 86 87 Respiratory 18 24 21 Rate Blood Pressure 117/83 127/81 O2 Sat by Pulse 94 L 95 96 Oximetry 01/21/23 01/21/23 01/21/23 19:00 19:30 20:00 Temperature Pulse Rate 81 80 90 Respiratory 22 21 21 Rate Blood Pressure 127/81 127/83 139/92 O2 Sat by Pulse 91 L 94 L 91 L Oximetry 01/21/23 01/21/23 01/21/23 20:30 21:00 21:30 Temperature Pulse Rate 82 78 Respiratory 12 22 Rate Blood Pressure 118/79 121/80 119/84 O2 Sat by Pulse 95 92 L Oximetry Medical Decision Making - Lab Data Result diagrams: 01/21/23 18:54 01/21/23 18:54 - EKG Data -: EKG Interpreted by In <Mesfin Lopez - Last Filed: 01/21/23 22:04> - Medical Decision Making Was pt. sent in by a medical professional or institution (, PA, RN CAMP, urgent care, hospital, or half-way...) When possible be specific @ -No Did you speak to anyone other than the patient for history (EMS, parent, family, police, friend...)? What history was obtained from this source @ -No Did you review nursing and triage notes (agree or disagree)? Why? @ -I reviewed and agree with nursing and triage notes, except that the patient's symptoms are more acute on chronic. They are not fully acute but did occur prior to arrival. Has a known history of cervical spine stenosis as well as degeneration with these recurrent episodes of weakness and numbness in the arms, brought on by coughing fits. Patient also becomes lightheaded from coughing fits. All symptoms have occurred previously, but seemed to last a l ittle bit longer and had a more severe episode today. Were old charts reviewed (outside hosp., previous admission, EMS record, old EKG, old radiological studies, urgent care reports/EKG's, half-way records)? Report findings @ -No old charts were reviewed Differential Diagnosis (chest pain, altered mental status, abdominal pain women, abdominal pain men, vaginal bleeding, weakness, fever, dyspnea, syncope, headache, dizziness, GI bleed, back pain, seizure, CVA, palpatations, mental health, musculoskeletal)? @ -Differential Weakness: Hypoglycemia, shock, sepsis, hyponatremia, anemia, infection, [place], ETOH, adverse medicine reaction, overdose, stroke, this is not meant to be an all-inclusive list. Differential Dyspnea: Coronary syndrome, arrhythmia, tamponade, asthma, COPD, pulmonary embolism, pneumonia, pneumothorax, pulmonary effusion, anaphylaxis, diabetic ketoacidosis, flailed chest, pulmonary contusion, diaphragmatic rupture, anemia, neuromuscular, this is not meant to be an all-inclusive list. EKG interpreted by me (3pts min.). @ -As above X-rays interpreted by me (1pt min.). @ -Chest x-ray reveals no obvious acute cardio pulmonary process. CT interpreted by me (1pt min.). @ -CT brain shows no obvious acute intracranial process. CT cervical spine shows severe degenerative disc disease as well as some spinal canal stenosis at C4. All chronic findings were discussed with patient. U/S interpreted by me (1pt. min.). @ -None done What testing was considered but not performed or refused? (CT, X-rays, U/S, labs)? Why? @ -None What meds were considered but not given or refused? Why? @ -None Did you discuss the management of the patient with other professionals (professionals i.e. , PA, RN CAMP, lab, RT, psych nurse, director social service, senior hadoop developer, teacher, chief administrative officer, case fitter)? Give summary @ -No Was smoking cessation discussed for >3mins.? @ -yes Was critical care preformed (if so, how long)? @ -No Were there social determinants of health that impacted care today? How? (Homelessness, low income, unemployed, alcoholism, drug addiction, transportation, low edu. Level, literacy, decrease access to med. care, residential, rehab)? @ -No Was there de-escalation of care discussed even if they declined (Discuss DNR or withdrawal of care, Hospice)? DNR status @ -No What co-morbidities impacted this encounter? (DM, HTN, Smoking, COPD, CAD, Cancer, CVA, ARF, Chemo, Hep., AIDS, mental health diagnosis, sleep apnea, morbid obesity)? @ -COPD, chronic degenerative disc disease and radiculopathy of the cervical spine Was patient admitted / discharged? Hospital course, mention meds given and route, prescriptions, significant lab abnormalities, going to OR and other pertinent info. @ -Based on the patient's presentation and physical exam, appears to be having bronchitis as well as tonic symptoms from severe degenerative disc disease in the neck. Patient is supposed to receive surgery but has not stopped smoking yet. Workup was started in triage including CT brain and C-spine which showed no obvious acute intracranial process but did redemonstrate the known cervical spine disease. Patient's labs otherwise were unremarkable except for a mild leukocytosis of 11 and hypomagnesemia 1.4. Troponin undetectable. When I evaluated the patient, he was asymptomatic. Vital signs within acceptable li mits. He is concerned that he may have a blood clot in his leg as he was told by someone that he may therefore we will obtain a venous duplex of the left lower extremity. He has no symptoms including no swelling or pain. Chest x-ray will also be obtained. He was in agreement this plan. This duplex negative for DVT. Chest x-ray shows no acute cardiopulmonary process. I updated the patient. We will supply him with magnesium, as well as doses of a steroid and he will be placed on prednisone for home, as well as an antibiotic to treat bronchitis. He recently completed azithromycin and we agreed to start him on Augmentin with strict return precautions and instructions to follow-up with his physician this week. He was in agreement this plan. We did discuss his imaging at length, and I stressed the importance of stopping smoking some that he can obtain the required surgery to improve his neck findings. He was in agreement this plan. I will provide the patient with a prescription for Augmentin, prednisone. I instructed the patient to follow up with their PCP in the next 1-3 days. I explained that the patient should return to the emergency department if they experience any worsening symptoms. Strict return precautions were discussed with the patient. The patient expressed understanding of these instructions. I answered all questions that the patient had. The patient was discharged home in good condition with their prescriptions and follow up information. Undiagnosed new problem with uncertain prognosis? @ -No Drug Therapy requiring intensive monitoring for toxicity (Heparin, Nitro, Insulin, Cardizem)? @ -No Were any procedures done? @ -No Diagnosis/symptom? @ -Cervical spine degeneration with cervical radiculopathy Acute, or Chronic, or Acute on Chronic? @ -Acute on chronic Uncomplicated (without systemic symptoms) or Complicated (systemic symptoms)? @ -Complicated Side effects of treatment? @ -No Exacerbation, Progression, or Severe Exacerbation? @ -No Poses a threat to life or bodily function? How? (Chest pain, [place], [place], pneumonia, PE, COPD, DKA, ARF, appy, cholecystitis, CVA, Diverticulitis, Homicidal, Suicidal, threat to staff... and all critical care pts) @ -No Diagnosis/symptom? @ -Bronchitis, COPD Acute, or Chronic, or Acute on Chronic? @ -Acute on chronic Uncomplicated (without systemic symptoms) or Complicated (systemic symptoms)? @ -Complicated Side effects of treatment? @ -none Exacerbation, Progression, or Severe Exacerbation] @ -no Poses a threat to life or bodily function? @ -no (Mesfin Lopez) - Lab Data Lab Results 01/21/23 01/21/23 01/21/23 Range/Units 18:50 18:54 18:54 WBC 11.2 H (3.8-10.6) k/uL RBC 4.33 (4.30-5.90) m/uL Hgb 13.7 (13.0-17.5) gm/dL Hct 40.2 (39.0-53.0) % MCV 92.9 (80.0-100.0) fL MCH 31.5 (25.0-35.0) pg MCHC 33.9 (31.0-37.0) g/dL RDW 14.2 (11.5-15.5) % Plt Count 285 (150-450) k/uL MPV 7.4 Neutrophils % 65 % Lymphocytes % 27 % Monocytes % 4 % Eosinophils % 2 % Basophils % 1 % Neutrophils # 7.3 (1.3-7.7) k/uL Lymphocytes # 3.0 (1.0-4.8) k/uL Monocytes # 0.4 (0-1.0) k/uL Eosinophils # 0.3 (0-0.7) k/uL Basophils # 0.1 (0-0.2) k/uL PT 9.9 (9.0-12.0) sec INR 0.9 (<1.2) APTT 22.1 (22.0-30.0) sec Sodium (137-145) mmol/L Potassium (3.5-5.1) mmol/L Chloride (98-107) mmol/L Carbon Dioxide (22-30) mmol/L Anion Gap mmol/L BUN (9-20) mg/dL Creatinine (0.66-1.25) mg/dL Est GFR (CKD-EPI)AfAm (>60 ml/min/1.73 sqM) Est GFR (CKD-EPI)NonAf (>60 ml/min/1.73 sqM) Glucose (74-99) mg/dL POC Glucose (mg/dL) 129 H (70-110) mg/dL POC Glu Access Manager ID Lorenzo, Kayleen Calcium (8.4-10.2) mg/dL Magnesium (1.6-2.3) mg/dL Total Bilirubin (0.2-1.3) mg/dL AST (17-59) U/L ALT (4-49) U/L Alkaline Phosphatase (38-126) U/L Troponin I (0.000-0.034) ng/mL Total Protein (6.3-8.2) g/dL Albumin (3.5-5.0) g/dL 01/21/23 01/21/23 Range/Units 18:54 18:54 WBC (3.8-10.6) k/uL RBC (4.30-5.90) m/uL Hgb (13.0-17.5) gm/dL Hct (39.0-53.0) % MCV (80.0-100.0) fL MCH (25.0-35.0) pg MCHC (31.0-37.0) g/dL RDW (11.5-15.5) % Plt Count (150-450) k/uL MPV Neutrophils % % Lymphocytes % % Monocytes % % Eosinophils % % Basophils % % Neutrophils # (1.3-7.7) k/uL Lymphocytes # (1.0-4.8) k/uL Monocytes # (0-1.0) k/uL Eosinophils # (0-0.7) k/uL Basophils # (0-0.2) k/uL PT (9.0-12.0) sec INR (<1.2) APTT (22.0-30.0) sec Sodium 132 L (137-145) mmol/L Potassium 4.0 (3.5-5.1) mmol/L Chloride 94 L (98-107) mmol/L Carbon Dioxide 28 (22-30) mmol/L Anion Gap 10 mmol/L BUN 19 (9-20) mg/dL Creatinine 1.10 (0.66-1.25) mg/dL Est GFR (CKD-EPI)AfAm 88 (>60 ml/min/1.73 sqM) Est GFR (CKD-EPI)NonAf 76 (>60 ml/min/1.73 sqM) Glucose 119 H (74-99) mg/dL POC Glucose (mg/dL) (70-110) mg/dL POC Glu Access Manager ID Calcium 9.3 (8.4-10.2) mg/dL Magnesium 1.4 L (1.6-2.3) mg/dL Total Bilirubin 1.0 (0.2-1.3) mg/dL AST 62 H (17-59) U/L ALT 86 H (4-49) U/L Alkaline Phosphatase 97 (38-126) U/L Troponin I <0.012 (0.000-0.034) ng/mL Total Protein 6.6 (6.3-8.2) g/dL Albumin 4.2 (3.5-5.0) g/dL - EKG Data EKG Comments: 12-lead Electrocardiogram Interpretation Note EKG was reviewed and interpreted by myself. 12-lead ECG performed at 1847 is interpreted by me as revealing normal sinus rhythm at a rate of 80 beats per minute. [place] is normal. CA interval is 140 ms, QRS duration is 92 ms, QTc is 401 ms.. There were no ST or T wave abnormalities to suggest myocardial ischemia or injury. R wave progression across the precordium was satisfactory. By my interpretation this EKG is non-diagnostic for acute ischemia. (Mesfin Lopez) Disposition <Joanna Pena - Last Filed: 01/21/23 18:10> Is patient prescribed a controlled substance at d/c from ED?: No Time of Disposition: 20:52 <Mesfin Lopez - Last Filed: 01/21/23 22:04> Clinical Impression: Radiculopathy, COPD (chronic obstructive pulmonary disease), Bronchitis Disposition: HOME SELF-CARE Condition: Good Instructions (If sedation given, give patient instructions): Acute Bronchitis (ED), Cervical Radiculopathy (ED) Prescriptions: Amoxic-Pot Clav 875-125Mg [Augmentin 875-125] 1 tab PO Q12HR 7 Days #14 tab predniSONE [Deltasone] 40 mg PO DAILY 5 Days #10 tab Referrals: Eduardo Espinosa DO [Primary Care Provider] - 1-2 days
[2023-01-21 18:52] LABS: Glucose,Whole Blood 129 mg/dL (70-110)
[2023-01-21 19:02] LABS: Basophils # (A) 0.1 k/uL (0-0.2); Basophils % (A) 1 %; Eosinophils # (A) 0.3 k/uL (0-0.7); Eosinophils % (A) 2 %; HCT 40.2 % (39.0-53.0); HGB 13.7 gm/dL (13.0-17.5); Lymphocytes % (A) 27 %; MCH 31.5 pg (25.0-35.0); MCHC 33.9 g/dL (31.0-37.0); MCV 92.9 fL (80.0-100.0); Mean Platelet Volume 7.4; Monocytes # (A) 0.4 k/uL (0-1.0); Monocytes % (A) 4 %; Neutrophils # (A) 7.3 k/uL (1.3-7.7); Neutrophils % (A) 65 %; Platelet Count 285 k/uL (150-450); RBC 4.33 m/uL (4.30-5.90); RDW 14.2 % (11.5-15.5); WBC 11.2 k/uL (3.8-10.6)
[2023-01-21 19:16] LABS: Albumin 4.2 g/dL (3.5-5.0); Calcium 9.3 mg/dL (8.4-10.2); Magnesium 1.4 mg/dL (1.6-2.3); Total Protein 6.6 g/dL (6.3-8.2)
[2023-01-21 19:19] LABS: INR 0.9 (<1.2); Partial Thromboplastin Time 22.1 sec (22.0-30.0); Prothrombin Time 9.9 sec (9.0-12.0)
[2023-01-21 19:23] VITALS: RESP 22
--- NOTE | 2023-01-21 19:35 | CT ---
EXAMINATION TYPE: CT brain juliana wo con DATE OF EXAM: 01/21/2023 COMPARISON: None HISTORY: fall CT DLP: 1745.4 mGycm, Automated exposure control for dose reduction was used. CONTRAST: None CT of the brain is performed utilizing 3 mm thick sections through the posterior fossa and 3 mm thick sections through the remaining calvarium. Study is performed within 24 hours of arrival to the hospital. No abnormal hyperdensity is present to suggest an acute intracranial hemorrhage. No mass lesion is evident. No acute infarcts are evident. Ventricles and sulci are appropriate for the patient age. Paranasal sinuses and mastoid air cells within the [id number] are clear. IMPRESSIONS: 1. No acute intracranial process. Follow-up MRI can be performed as clinically indicated. CT cervical spine. COMPARISON: None CT of the cervical spine is performed in the axial plane at 2 mm thick sections. Reconstructed image s in the coronal, and sagittal plane are reviewed on the computer. No acute fractures are evident. Vertebral body alignment is normal. Disc heights are preserved. Vertebral body heights are preserved. There is some endplate spurring and posterior longitudinal ligament calcification at the C3-4 level h as some impression on the anterior thecal sac. There may be some spinal canal narrowing measuring 0.8 cm posterior to the superior C4 endplate spur. This could be followed up with MRI. Facet hypertrophy and uncovertebral joint hypertrophy on the right at C4-5 has moderate foraminal xiang nosis some posterior endplate spurring is present 6 7 there some mild anterior thecal sac compression . IMPRESSIONS: 1. No acute osseous abnormality cervical spine. 2. Posterior endplate spurring at C3-4 has some spinal canal stenosis at the level of C4. Consider fo llow-up with MRI.
[2023-01-21] MEDS ORDERED: MAGNESIUM SULFATE-D5W PMX 1 GM in DEXTROSE/WATER 1 100ML.BAG IVPB ONE (19:53)
[2023-01-21] MEDS ORDERED: IPRATROPIUM-ALBUTEROL 3 ML NEB INHALATION STA (19:53)
--- NOTE | 2023-01-21 20:36 | US ---
EXAMINATION TYPE: US venous doppler duplex LE LT DATE OF EXAM: 01/21/2023 7:53 PM COMPARISON: NONE CLINICAL INDICATION: Male, 52 years old with history of cramping, recent swelling. eval for dvt; Left calf redness. No hx of DVT. Not on blood thinners SIDE PERFORMED: Left TECHNIQUE: The lower extremity deep venous system is examined utilizing real time linear array sonog nahomi with graded compression, doppler sonography and color-flow sonography. VESSELS IMAGED: Common Femoral Vein Deep Femoral Vein Greater Saphenous Vein * Femoral Vein Popliteal Vein Small Saphenous Vein * Proximal Calf Veins (* superficial vessels) Left Leg: No evidence for DVT IMPRESSION: 1. Left lower extremity ultrasound negative for deep venous thrombosis.
--- NOTE | 2023-01-21 20:48 | XR ---
EXAMINATION TYPE: XR chest 2V DATE OF EXAM: 01/21/2023 COMPARISON: 08/22/2018 INDICATION: Cough TECHNIQUE: Frontal and lateral views of the chest are obtained. FINDINGS: The heart size is normal. The pulmonary vasculature is normal. The lungs are clear. Hyperinflation flattening the diaphragms can be compatible with COPD IMPRESSION: 1. No acute pulmonary process. 2. COPD
[2023-01-21] MEDS ORDERED: predniSONE 50 MG TAB PO STA (21:03)
[2023-01-21] MEDS ORDERED: AMOXIC-POT CLAV 875-125MG 1 EACH TAB PO STA (21:03)
[2023-01-21] MEDS ORDERED: MAGNESIUM OXIDE 400 MG TAB PO STA (21:04)
[2023-01-21 21:54] VITALS: BP 119/84; PULSE 78
== END 2023-01-21 22:13 | disposition home or self-care (01) ==
LOC: EC 17:49
DX: J40 Bronchitis, not specified as acute or chronic (principal); J44.9 Chronic obstructive pulmonary disease, unspecified; M54.12 Radiculopathy, cervical region
CPT/HCPCS: 36415; 93005; 80053; 83735; 84484; 85025; 85610; 85730; 71046; 93971; 72125; 70450; 99284; 96365; J3475; J7512

== ENCOUNTER → 2023-11-14 | Outpatient (CLI) | payer OTHER ==
--- NOTE | 2023-11-14 13:58 | CTL ---
EXAMINATION TYPE: CT Low Dose Lung DATE OF EXAM ORDERED: 11/14/2023 HISTORY: Lung cancer screening CT DLP: [address] CTDI: 3.03 mGy Automated exposure control for dose reduction was used. SCREENING VISIT: 1. COMPARISON: Chest abdomen and pelvis dated 08/22/2018 TECHNIQUE: Low dose computed tomography scan was performed through the chest at 1 mm thick sections a nd reconstructed images in multiple planes at 1 mm and [address] DIAGNOSTIC QUALITY: Satisfactory FINDINGS: There is subpleural parenchymal interstitial density in nodularity in the right lung base medially. T here are a few scattered nodules in the right upper lobe. There are multiple innumerable liver nodule s in the left lung largest of which is found in the left lower lobe measuring 9.2 mm. This nodule aldair ng with many of the other left lung nodules are not present on the prior study. There is no airspace/consolidated density. The great vessels just normal is no mediastinal, hilar or axillary adenopathy. Limited scans through the upper abdomen reveals no gross abnormality. No focal osseous lesions are seen. IMPRESSION: 1.Multiple bilateral lung nodules the largest of which is in the left lower lobe measuring approximat johanna 9.2 mm. This was not present on the prior study. Lung metastases category 4A. Consider PET scan f or the left lower lobe pulmonary nodule. In the PET scan, CT thorax in 3 months recommended. 2. No acute cardiopulmonary disease. 3. No adenopathy.
== END | disposition home or self-care (01) ==
LOC: RADCTMAIN 12:07
PROVIDERS: ATTEND Internal Medicine
DX: Z12.2 Encounter for screening for malignant neoplasm of respiratory organs (principal); C78.00 Secondary malignant neoplasm of unspecified lung; F17.210 Nicotine dependence, cigarettes, uncomplicated; R91.8 Other nonspecific abnormal finding of lung field
CPT/HCPCS: 71271

== ENCOUNTER → 2023-12-11 | Outpatient (CLI) | payer OTHER ==
--- NOTE | 2023-12-11 18:56 | PE ---
EXAMINATION TYPE: PET CT fusion skull to thigh DATE OF EXAM: 12/11/2023 CLINICAL INDICATION:Male, 53 years old with history of R91.1 LUNG NODULE; TECHNIQUE: Following the intravenous administration of 11.23 mCi of F-18 FDG, whole body images are performed from the skull base to the midthigh. Images are reviewed on the computer in the coronal, axial, and sagittal planes. Reconstructed rotating images are created on independent workstation and reviewed on the computer. A non-contrast CT is performed in conjunction with the PET scan. Glucose level 110 mg/dL CT DLP: 983 mGycm, Automated exposure control for dose reduction was used. COMPARISON: CT 11/14/2023, PET/CT None, FINDINGS: Mediastinal SUV mean is 2.8. Hepatic parenchyma SUV mean is 3.7. SKULL BASE AND NECK: No suspicious radiotracer activity. CHEST, MEDIASTINUM, AND HILAR REGION: * Scattered pulmonary nodules without abnormal FDG activity at this time to majority of these nodule s are below the threshold for PET/CT. * Right lower lobe medial 14 mm nodule Max SUV 2.3. ABDOMEN AND PELVIS: No suspicious radiotracer activity. MUSCULOSKELETAL STRUCTURES: No suspicious radiotracer activity. OTHER CT: Atherosclerosis of the carotid bifurcations. Mild cardiomegaly. Mild coronary artery athero sclerosis. Fat inguinal hernia changes. IMPRESSION: No suspicious radiotracer activity. Right lower lobe 14 mm nodule is favored represent atelectasis th is time. Scattered pulmonary nodules seen on prior CT may be below the threshold for PET/CT given the ir size.. Continue low-dose lung cancer screening yearly.
== END | disposition home or self-care (01) ==
LOC: RADPETMAIN 07:55
PROVIDERS: ATTEND Internal Medicine
DX: R91.8 Other nonspecific abnormal finding of lung field (principal)
CPT/HCPCS: 78815; A9552

== ENCOUNTER → 2024-01-13 | Outpatient (CLI) | payer OTHER ==
--- NOTE | 2024-01-15 09:53 | MR ---
EXAMINATION TYPE: MR cspine/lspine wo con DATE OF EXAM: 01/13/2024 10:38 PM CLINICAL INDICATION:Male, 53 years old with history of M54.50 LOW BACK PAIN, Neck and low back pain i nto both sides, COMPARISON: 08/19/2018. TECHNIQUE: Multi planar, multi sequence imaging was performed utilizing: T1-weighted, T2-weighted, a nd turbo inversion recovery imaging of the cervical and lumbar spine. MR contrast: IV Contrast: None. FINDINGS: CERVICAL: Alignment: The cervical vertebral bodies have preserved heights. Alignment is within normal limits gi alexx patient positioning. Bones: Scattered Modic endplate changes with osteophytes and disc space narrowing. Multilevel degener ative disc disease is noted and most pronounced at the C5-C7 vertebral levels. There is abnormal bony edema of the adjoining endplates of C6-C7 which likely reactive. Cord: Abnormal signal the level of C3-C4. The spinal cord is unremarkable with regards to their signa l intensity and morphology. Discs: Multilevel disc desiccation is present. C2-C3: No significant disc pathology. The spinal canal is patent. No neural foraminal stenosis. C3-C4: A disc osteophyte complex is present with severe spinal canal stenosis. Bilateral facet and u ncovertebral joint arthropathy are present with moderate to severe bilateral neural foraminal stenosi s. C4-C5: A disc osteophyte complex is present with moderate spinal canal stenosis. Bilateral facet and uncovertebral joint arthropathy are present with mild bilateral neural foraminal stenosis. C5-C6: No significant disc pathology. The spinal canal is patent. Bilateral facet and uncovertebral joint arthropathy are present with mild bilateral neural foraminal stenosis. C6-C7: A disc osteophyte complex is present with moderate spinal canal stenosis. Bilateral facet and uncovertebral joint arthropathy are present with severe right and moderate left neural foraminal xiang nosis. C7-T1: No significant disc pathology. The spinal canal is patent. No neural foraminal stenosis. Other: None. LUMBAR: Alignment: The lumbar vertebral bodies have preserved heights and alignment. Cord: The conus medullaris and the distal spinal cord appear unremarkable with regards to their signa l intensity and morphology. Bones/Discs: Mild degeneration changes throughout the spine with osteophyte formation and facet joint arthropathy. Intervertebral disc signal is maintained. There is a narrowed caliber of the spinal ca nal extending from L1 to S1 T12-L1: No evidence of significant spinal canal stenosis or neural foraminal stenosis. L1-L2: Disc bulge and facet joint arthropathy result in mild spinal canal and mild bilateral neural f oraminal stenosis. L2-L3: Disc bulge and facet joint arthropathy result in mild to moderate spinal canal and mild bilate ral neural foraminal stenosis. L3-L4: Disc bulge and facet joint arthropathy result in moderate spinal canal and mild bilateral neur al foraminal stenosis. L4-L5: Disc bulge and facet joint arthropathy result in moderate to severe spinal canal and moderate to severe left and severe right neural foraminal stenosis. L5-S1: Disc bulge and facet joint arthropathy result in mild spinal canal and mild bilateral neural f oraminal stenosis. No significant spinal canal or neural foraminal stenosis in the remainder of the visualized levels. Other findings: None. IMPRESSION: 1. Myelomalacia with increased cord signal at level C3-C4 with severe spinal canal stenosis. Surgica l consultation recommended. 2. Moderate multilevel degeneration changes throughout the cervical spine with moderate to severe C3 -C4 bilateral and severe right C6-C7 and moderate left C6-C7 neural foraminal stenosis. 3. Small Caliber of the spinal canal from L2 to S1 with essentially diffuse moderate to severe steno sis throughout this segment. 4. Multilevel degeneration changes of the lumbar spine with moderate severe left and severe right L4 -L5 neural foraminal stenosis.
== END | disposition home or self-care (01) ==
LOC: RADMRIMAIN 20:45
PROVIDERS: ATTEND Family Medicine
DX: M48.02 Spinal stenosis, cervical region (principal); M50.31 Other cervical disc degeneration, high cervical region; M99.71 Connective tissue and disc stenosis of intervertebral foramina of cervical region; M47.816 Spondylosis without myelopathy or radiculopathy, lumbar region; M99.73 Connective tissue and disc stenosis of intervertebral foramina of lumbar region; M48.061 Spinal stenosis, lumbar region without neurogenic claudication; G95.89 Other specified diseases of spinal cord
CPT/HCPCS: 72141; 72148

== ENCOUNTER 2024-04-17 10:04 | Emergency (ER) | payer OTHER ==
[2024-04-17] MEDS ORDERED: ACETAMINOPHEN TAB 325 MG TAB ONE (12:39)
[2024-04-17] MEDS ORDERED: MAGNESIUM CITRATE 296 ML BOTTLE ONE (13:35)
[2024-04-17] MEDS ORDERED: NA PHOS,M-B/NA PHOS,DI-BA 133 ML ENEMA RECTAL ONE (13:35)
--- NOTE | 2024-05-12 11:56 | XR ---
Report Patient: Kamlesh Carrera F Ordering Physician: Unknown, Unknown ID: [id number] Phone, Pager: Phone: N/A Pager: N/A : 1970 Age/Gender: 53Y, M Primary Location: N/A Procedure: XR abdomen 1V Study Date: 04/17/2024 11:38:40 AM EXAMINATION TYPE: XR abdomen 1V, upright DATE OF EXAM: 04/17/2024 Comparison: None Clinical History: 53-year-old male constipation Findings: Overall moderate stool throughout the colon. No dilated small bowel loops. No air-fluid levels. No ev idence for free intraperitoneal air. No suspicious calcifications are seen. Impression: Moderate stool burden may reflect constipation. Nonobstructive bowel gas pattern.
--- NOTE | 2024-05-12 11:56 | XR ---
Report Patient: Carrera KamleshParag Ordering Physician: Jeni Herring ID: [id number] Phone, Pager: Phone: Pager: : [phone] Age/Gender: 53Y, M Primary Location: [facility] Procedure: Chest X-Ray 2 Views Study Date: 12/17/2023 10:57:46 AM EXAMINATION TYPE: XR chest 2V DATE OF EXAM: 04/17/2024 COMPARISON: 12/17/2023 HISTORY: 53-year-old male cough and congestion TECHNIQUE: PA and lateral views FINDINGS: Heart normal size. Aorta and pulmonary vasculature within normal limits. Old healed right-sided rib f racture deformities. Patchy opacity at the left base. Interbody device within the cervical spine. IMPRESSION: Patchy left basilar atelectasis versus early infiltrate/pneumonia.
== END 2024-04-17 15:56 | disposition home or self-care (01) ==
LOC: EC 10:04
CPT/HCPCS: 71046; 74018; 99284

== ENCOUNTER 2024-05-14 20:03 | Emergency (ER) | payer OTHER ==
[2024-05-14 20:09] VITALS: RESP 18
--- NOTE | 2024-05-14 20:27 | ED ---
Abdominal Pain HPI - General Chief Complaint: Abdominal Pain Stated Complaint: Constipation Time Seen by Provider: 05/14/24 20:07 Source: EMS, RN notes reviewed, old records reviewed Mode of arrival: EMS Limitations: no limitations - History of Present Illness Initial Comments: This is a 53-year-old male to the ER for evaluation of abdominal pain severe abdominal pain with difficulty with bowel movements. History of constipation patient is on medications that do constipate him. No fevers no travel history no sick contacts no other complaints MD Complaint: abdominal pain, other (Constipation with diminished bowel movement s) Location: diffuse Migration to: no migration Severity: moderate Severity scale (1-10): 7 Quality: fullness Consistency: constant Improves With: nothing Worsens With: nothing Associated Symptoms: nausea Treatments Prior to Arrival: other (0) - Related Data Previous Rx's Medication Instructions Recorded Amoxicillin/Potassium Clav 1 tab PO Q12HR #14 tab 01/06/19 [Augmentin 875-125 Tablet] Hydrocodone/Acetaminophen [Ada 1 tab PO Q4HR PRN 3 Days #18 tab 01/06/19 5-325] Ketorolac [Toradol] 10 mg PO Q6HR #40 tab 01/21/19 Amoxic-Pot Clav 875-125Mg 1 tab PO Q12HR 7 Days #14 tab 01/21/23 [Augmentin 875-125] predniSONE [Deltasone] 40 mg PO DAILY 5 Days #10 tab 01/21/23 Allergies Allergy/AdvReac Type Severity Reaction Status Date / Time No Known Allergies Allergy Verified 01/21/23 18:11 Review of Systems ROS Statement: Those systems with pertinent positive or pertinent negative responses have been documented in the HPI. ROS Other: All systems not noted in ROS Statement are negative. Past Medical History Past Medical History: COPD Additional Past Medical History / Comment(s): dog bite right forearm History of Any Multi-Drug Resistant Organisms: None Reported Additional Past Surgical History / Comment(s): wire mesh in head on R side Past Psychological History: Depression Past Alcohol Use History: None Reported Past Drug Use History: None Reported - Past Family History Father Family Medical History: COPD, Myocardial Infarction (ND) Mother Family Medical History: No Reported History General Exam General appearance: alert, in no apparent distress Head exam: Present: atraumatic, normocephalic, normal inspection Eye exam: Present: normal appearance, PERRL, EOMI. Absent: scleral icterus, conjunctival injection, periorbital swelling ENT exam: Present: normal exam, mucous membranes moist Neck exam: Present: normal inspection. Absent: tenderness, meningismus, lymphadenopathy Respiratory exam: Present: normal lung sounds bilaterally. Absent: respiratory distress, wheezes, rales, rhonchi, stridor Cardiovascular Exam: Present: regular rate, normal rhythm, normal heart sounds. Absent: systolic murmur, diastolic murmur, rubs, gallop, clicks GI/Abdominal exam: Present: soft, normal bowel sounds. Absent: distended, tenderness, guarding, rebound, rigid Extremities exam: Present: normal inspection, full ROM, normal capillary refill. Absent: tenderness, pedal edema, joint swelling, calf tenderness Back exam: Present: normal inspection Neurological exam: Present: alert, oriented X3, CN II-XII intact Psychiatric exam: Present: normal affect, normal mood Skin exam: Present: warm, dry, intact, normal color. Absent: rash Course Vital Signs 05/14/24 05/15/24 20:07 00:25 Temperature 97.8 F 98.1 F Pulse Rate 92 82 Respiratory 18 18 Rate Blood Pressure 115/73 130/81 O2 Sat by Pulse 94 L 97 Oximetry - Reevaluation(s) Reevaluation #1: Medical records reviewed Reevaluation #2: Patient symptoms resolved Reevaluation #3: Patient informed of results and questions answered Reevaluation #4: Was pt. sent in by a medical professional or institution (, PA, PACKAGING LINE ATTENDANT, urgent care, hospital, or long term...) When possible be specific @ -no Did you speak to anyone other than the patient for history (EMS, parent, family, police, friend...)? What history was obtained from this source @ -no Did you review nursing and triage notes (agree or disagree)? Why? @ -agree Are old charts reviewed (outside hosp., previous admission, EMS record, old EKG, old radiological studies, urgent care reports/EKG's, long term records)? Report findings @ -yes Differential Diagnosis (chest pain, altered mental status, abdominal pain women, abdominal pain men, vaginal bleeding, weakness, fever, dyspnea, syncope, headache, dizziness, GI bleed, back pain, seizure, CVA, palpatations, mental health, musculoskeletal)? @ -prior EKG interpreted by me (3pts min.). @ -no X-rays interpreted by me (1pt min.). @ - CT interpreted by me (1pt min.). @ -Yes positive for fecal stasis U/S interpreted by me (1pt. min.). @ -no What testing was considered but not performed or refused? (CT, X-rays, U/S, labs)? Why? @ -none What meds were considered but not given or refused? Why? @ -none Did you discuss the management of the patient with other professionals (professionals i.e. , PA, PACKAGING LINE ATTENDANT, lab, RT, psych nurse, social work lecturer, blasting contract miner, teacher, chief security and safety officer, employment case manager)? Give summary @ -no Was smoking cessation discussed for >3mins.? @ -no Was critical care preformed (if so, how long)? @ -no Were there social determinants of health that impacted care today? How? (Homelessness, low income, unemployed, alcoholism, drug addiction, transportation, low edu. Level, literacy, decrease access to med. care, group home, rehab)? @ -none Was there de-escalation of care discussed even if they declined (Discuss DNR or withdrawal of care, Hospice)? DNR status @ -no What co-morbidities impacted this encounter? (DM, HTN, Smoking, COPD, CAD, Cancer, CVA, ARF, Chemo, Hep., AIDS, mental health diagnosis, sleep apnea, morbid obesity)? @ -none Was patient admitted / discharged? Hospital course, mention meds given and route, prescriptions, significant lab abnormalities, going to OR and other pertinent info. @ - 53 male with colonic fecal stasis. Patient has significant bowel movement here in the ER and can be discharged home Discharge Undiagnosed new problem with uncertain prognosis? @ -no Drug Therapy requiring intensive monitoring for toxicity (Heparin, Nitro, Insulin, Cardizem)? @ -no Were any procedures done? @ -no Diagnosis/symptom? @ -Constipation Acute, or Chronic, or Acute on Chronic? @ -Acute Uncomplicated (without systemic symptoms) or Complicated (systemic symptoms)? @ -Complicated Side effects of treatment? @ -no Exacerbation, Progression, or Severe Exacerbation? @ -exacerbation Poses a threat to life or bodily function? How? (Chest pain, USA, ND, pneumonia, PE, COPD, DKA, ARF, appy, cholecystitis, CVA, Diverticulitis, Homicidal, Pili cidal, threat to staff... and all critical care pts) @ -yes Reevaluation #5: Differential Abdominal Pain Men: Appendicitis, cholecystitis, diverticulosis, ischemic bowel, pancreatitis, hepatitis, UTI, gastroenteritis, AAA, incarcerated hernia, bowel obstruction, constipation, inflammatory bowel, hepatitis, peptic ulcer disease, splenic infarction, perforated viscus, testicular torsion, this is not meant to be an all-inclusive list Medical Decision Making - Medical Decision Making 53 male with colonic fecal stasis. Patient has significant bowel movement here in the ER and can be discharged home - Lab Data Result diagrams: 05/14/24 21:22 05/14/24 20:57 Lab Results 05/14/24 05/14/24 Range/Units 20:57 21:22 WBC 13.3 H (3.8-10.6) k/uL RBC 4.42 (4.30-5.90) m/uL Hgb 13.8 (13.0-17.5) gm/dL Hct 42.3 (39.0-53.0) % MCV 95.8 (80.0-100.0) fL MCH 31.2 (25.0-35.0) pg MCHC 32.5 (31.0-37.0) g/dL RDW 12.4 (11.5-15.5) % Plt Count 448 (150-450) k/uL MPV 7.3 Neutrophils % 73 % Lymphocytes % 18 % Monocytes % 5 % Eosinophils % 2 % Basophils % 1 % Neutrophils # 9.8 H (1.3-7.7) k/uL Lymphocytes # 2.4 (1.0-4.8) k/uL Monocytes # 0.6 (0-1.0) k/uL Eosinophils # 0.2 (0-0.7) k/uL Basophils # 0.1 (0-0.2) k/uL Sodium 132 L (137-145) mmol/L Potassium 3.9 (3.5-5.1) mmol/L Chloride 98 (98-107) mmol/L Carbon Dioxide 25 (22-30) mmol/L Anion Gap 9 mmol/L BUN 8 L (9-20) mg/dL Creatinine 0.80 (0.66-1.25) mg/dL Est GFR (CKD-EPI)AfAm >90 (>60 ml/min/1.73 sqM) Est GFR (CKD-EPI)NonAf >90 (>60 ml/min/1.73 sqM) Glucose 99 (74-99) mg/dL Calcium 8.9 (8.4-10.2) mg/dL Total Bilirubin 0.6 (0.2-1.3) mg/dL AST 26 (17-59) U/L ALT 21 (4-49) U/L Alkaline Phosphatase 103 (38-126) U/L Total Protein 6.2 L (6.3-8.2) g/dL Albumin 3.5 (3.5-5.0) g/dL Amylase 42 (30-110) U/L Lipase 242 (23-300) U/L - Radiology Data Radiology results: report reviewed (CT abdomen pelvis positive for fecal stasis), image reviewed Disposition Clinical Impression: Constipation Disposition: HOME SELF-CARE Condition: Good Instructions (If sedation given, give patient instructions): Constipation (ED) Is patient prescribed a controlled substance at d/c from ED?: No Referrals: Eduardo Espinosa DO [Primary Care Provider] - 1-2 days Time of Disposition: 22:40
[2024-05-14 21:24] LABS: ALT 21 U/L (4-49); AST 26 U/L (17-59); African American GFR (CKD) >90 (>60 ml/min/1.73 sqM); Albumin 3.5 g/dL (3.5-5.0); Alkaline Phosphatase 103 U/L (38-126); Amylase 42 U/L (30-110); Anion Gap 9 mmol/L; Blood Urea Nitrogen 8 mg/dL (9-20); Calcium 8.9 mg/dL (8.4-10.2); Carbon Dioxide 25 mmol/L (22-30); Chloride 98 mmol/L (98-107); Glucose 99 mg/dL (74-99); Lipase 242 U/L (23-300); Non-African American GFR(CKD) >90 (>60 ml/min/1.73 sqM); Potassium 3.9 mmol/L (3.5-5.1); Sodium 132 mmol/L (137-145); Total Bilirubin 0.6 mg/dL (0.2-1.3); Total Protein 6.2 g/dL (6.3-8.2)
[2024-05-14] MEDS: KETOROLAC 15 MG/ML 1 ML VIAL IVP STA (21:36)
[2024-05-14] MEDS: ONDANSETRON 4 MG/2 ML VIAL IVP STA (21:37)
[2024-05-14] MEDS: SODIUM CHLORIDE 0.9% 1,000 ML IV STA (21:38)
[2024-05-14] MEDS: SENNOSIDES-DOCUSATE SODIUM 1 EACH TAB PO STA (21:38)
[2024-05-14] MEDS: GLYCERIN ADULT SUPPOSITORY 1 EACH RECTAL STA (21:39)
[2024-05-14 22:15] LABS: Basophils # (A) 0.1 k/uL (0-0.2); Basophils % (A) 1 %; Eosinophils # (A) 0.2 k/uL (0-0.7); Eosinophils % (A) 2 %; HCT 42.3 % (39.0-53.0); HGB 13.8 gm/dL (13.0-17.5); Lymphocytes # (A) 2.4 k/uL (1.0-4.8); Lymphocytes % (A) 18 %; MCH 31.2 pg (25.0-35.0); MCHC 32.5 g/dL (31.0-37.0); MCV 95.8 fL (80.0-100.0); Mean Platelet Volume 7.3; Monocytes # (A) 0.6 k/uL (0-1.0); Monocytes % (A) 5 %; Neutrophils # (A) 9.8 k/uL (1.3-7.7); Neutrophils % (A) 73 %; Platelet Count 448 k/uL (150-450); RBC 4.42 m/uL (4.30-5.90); RDW 12.4 % (11.5-15.5); WBC 13.3 k/uL (3.8-10.6)
--- NOTE | 2024-05-14 22:41 | CT ---
EXAMINATION TYPE: CT abdomen pelvis wo con DATE OF EXAM: 05/14/2024 HISTORY: constipation x6 days. Comparison: Prior PET/CT December 11, 2023 CT DLP: 979 mGycm. Automated Exposure Control for Dose Reduction was Utilized. TECHNIQUE: CT scan of the abdomen and pelvis is performed without oral or IV contrast. COMPARISON: NONE FINDINGS: Within the limitations of a non-contrast study, the following observations are made. LUNG BASES: Some focal consolidation/atelectasis posteriorly in both lung bases. Coronary artery calc ification is present. LIVER/GB: No significant abnormality is appreciated. PANCREAS: No significant abnormality is seen. SPLEEN: No significant abnormality is seen. ADRENALS: No significant abnormality is seen. KIDNEYS: No renal stones or hydronephrosis is seen bilaterally. Mild to moderately distended bladder. BOWEL: No abnormal small or large bowel dilatation. Mild/moderate diffuse colonic fecal prominence. S uspect small appendicolith axial image 93. Appendix does not show surrounding fat stranding. GENITAL ORGANS: No gross abnormality seen. LYMPH NODES: No greater than 1cm abdominal or pelvic lymph nodes are appreciated. OSSEOUS STRUCTURES: Posterior decompression changes in the lower lumbar spine are now present. There is nonspecific thin walled fluid collection at this level posteriorly. Finding is new from most recen t prior PET/CT. Suspect seroma. OTHER: Small fat-containing bilateral inguinal hernias. IMPRESSION: [id number] diffuse colonic fecal stasis and/or constipation. No bowel obstruction. [facility], , 05/14/2024 10:39 PM
[2024-05-14] MEDS: POTASSIUM BICARBONATE/CIT AC 20 MEQ TABLET.EFF PO ONE (23:25)
[2024-05-15] MEDS: MAGNESIUM OXIDE 400 MG TAB PO STA (00:22)
[2024-05-15 00:26] VITALS: BP 130/81; PULSE 82; TEMP 98.1
== END 2024-05-15 00:41 | disposition home or self-care (01) ==
LOC: EC 20:03
DX: K59.00 Constipation, unspecified (principal)
CPT/HCPCS: 36415; 74176; 80053; 82150; 83690; 85025; 96361; 96374; 96375; 99284

== ENCOUNTER → 2024-09-28 | Day surgery (SDC) | payer OTHER ==
[2024-09-21 10:42] VITALS: BMI 29.0
[~2024-09-28] MED LIST: LACTATED RINGERS 1,000 ML IV SCH; LIDOCAINE 1% INJ 10MG/ML (20 ML MDV) ONE; PROPOFOL 10 MG/ML 20 ML VIAL IV ONE
[2024-09-28 10:52] VITALS: RESP 16; TEMP 98.3
[2024-09-28 11:11] LABS: Glucose,Whole Blood 81 mg/dL (70-110)
[2024-09-28] MEDS: LACTATED RINGERS 1,000 ML IV ONE (11:11)
--- NOTE | 2024-09-28 12:18 | P.PCN ---
Date of Procedure: 09/28/24 Procedure(s) Performed: BRIEF HISTORY: Patient is a 54-year-old pleasant white meat scheduled for an elective colonoscopy as a part of screening for colon cancer. PROCEDURE PERFORMED: Colonoscopy. PREOPERATIVE DIAGNOSIS: Screening for colon cancer. IV sedation per Anesthesia. PROCEDURE: After informed consent was obtained, the patient, was brought into the endoscopy unit. IV sedation was administered by Anesthesia under continuous monitoring. Digital rectal examination was normal. Initially the Olympus CF-160 flexible video colonoscope was then inserted in the rectum, gradually advanced into the cecum without any difficulty. Careful examination was performed as the scope was gradually being withdrawn. Ileocecal valve and the appendiceal orifice were visualized and appeared normal. Prep was poor in the right colon and cecum precluding adequate visualization despite aggressive irrigation.. Visualized portions of the mucosa of the cecum, ascending colon, transverse colon, descending colon, sigmoid colon, and rectum appeared normal. Retroflexion was performed in the rectum and no lesions were seen. The patient tolerated the procedure well. IMPRESSION: Normal-appearing colon from rectum to cecum evidence of colorectal neoplasia Extremely poor prep in the right colon including adequate visualization. RECOMMENDATIONS: Findings of this examination were discussed with the patient as well as his family.. He was advised to start MiraLAX 1 scoop twice daily and titrate the dose as needed. Recommended repeat colonoscopy in 5 years because of the poor prep that was seen on today's examination.
[2024-09-28 12:46] VITALS: BP 132/87; PULSE 94
== END ==
LOC: ORWHC2ENDO 09:44
PROVIDERS: ATTEND Internal Medicine Gastroenterology
DX: Z12.11 Encounter for screening for malignant neoplasm of colon (principal); J44.9 Chronic obstructive pulmonary disease, unspecified; F32.A Depression, unspecified; M19.90 Unspecified osteoarthritis, unspecified site; E11.9 Type 2 diabetes mellitus without complications; M54.2 Cervicalgia; F17.210 Nicotine dependence, cigarettes, uncomplicated; Z79.899 Other long term (current) drug therapy; Z79.84 Long term (current) use of oral hypoglycemic drugs; Z98.890 Other specified postprocedural states
CPT/HCPCS: 45378; J2003; J2704

== ENCOUNTER → 2024-10-27 | Outpatient (CLI) | payer OTHER ==
--- NOTE | 2024-10-27 20:10 | MR ---
EXAMINATION TYPE: MR lumbar spine wo/w con DATE OF EXAM: 10/27/2024 5:31 PM COMPARISON: 01/13/2024, 08/19/2018. CLINICAL INDICATION: Male, 54 years old with history of M48.062 SPINAL STENOSIS, LUMBAR REGION WITH N EUROG; PHH, Low back pain into RT buttocks and both thighs x4 months, Hx Low back surgery 03-30-2024, L ump on back TECHNIQUE: Multi planar, multi sequence imaging was performed utilizing: T1-weighted, T2-weighted, a nd turbo inversion recovery imaging of the lumbar spine. IV Contrast: 9 mL Gadobutrol (None, if empty) FINDINGS: Alignment: The lumbar vertebral bodies have preserved heights and alignment. Cord: The conus medullaris and the distal spinal cord appear unremarkable with regards to their signa l intensity and morphology. Bones/Discs: Degeneration changes throughout the spine with osteophyte formation and facet joint arth ropathy. Postsurgical changes at L4-L5 with likely postop seroma described below. Multilevel disc nicola iccation is present. No abnormal inversion recovery signal to suggest bony edema. T12-L1: No evidence of significant spinal canal stenosis or neural foraminal stenosis. L1-L2: No evidence of significant spinal canal stenosis. Facet joint arthropathy mild bilateral neura l foraminal stenosis. L2-L3: No evidence of significant spinal canal stenosis. Facet joint arthropathy mild bilateral neura l foraminal stenosis. L3-L4: Disc bulge and facet joint arthropathy result in mild spinal canal and mild to moderate bilate ral neural foraminal stenosis. L4-L5: Disc bulge and facet joint arthropathy result in mild to moderate spinal canal and moderate to severe bilateral neural foraminal stenosis. L5-S1: The disc has a rounded posterior morphology without significant spinal canal stenosis. Facet j oint arthropathy with mild bilateral neural foraminal stenosis. Surgical bed fluid collection which is high T2 low T1 signal measuring 109 x 71 x 62 mm. No definitiv e connection to the thecal sac identified and does extend to the right lateral aspect level of L5 ser ies 601 image 8 No significant spinal canal or neural foraminal stenosis in the remainder of the visualized levels. Other findings: None. IMPRESSION: 1. Mild spinal canal stenosis at L4-L5 with moderate to severe bilateral neural foraminal stenosis. 2. No evidence for disc herniation. 3. Moderate disc degeneration with associated osteoarthritic changes. 4. Large posterior back fluid collection likely postop seroma no definitive connection to the thecal sac however the sizes are thick and. [facility], , 10/27/2024 8:08 PM
== END | disposition home or self-care (01) ==
LOC: RADMRIMAIN 16:21
PROVIDERS: ATTEND Student in an Organized Health Care Education/Training Program
DX: M48.062 Spinal stenosis, lumbar region with neurogenic claudication (principal); M99.73 Connective tissue and disc stenosis of intervertebral foramina of lumbar region; M51.360 Other intervertebral disc degeneration, lumbar region with discogenic back pain only; M47.816 Spondylosis without myelopathy or radiculopathy, lumbar region
CPT/HCPCS: 72158; A9585

== ENCOUNTER → 2024-11-18 | Outpatient (CLI) | payer OTHER ==
[2024-11-18 11:46] LABS: African American GFR (CKD) >90 (>60 ml/min/1.73 sqM); Blood Urea Nitrogen 16 mg/dL (9-20); Non-African American GFR(CKD) >90 (>60 ml/min/1.73 sqM)
--- NOTE | 2024-11-18 13:47 | CT ---
EXAMINATION TYPE: CT abdomen pelvis w con DATE OF EXAM: 11/18/2024 COMPARISON: 05/14/2024 CLINICAL INDICATION: Male, 54 years old with history of R10.84 ABD PAIN; PHH, Abdoiminal pain TECHNIQUE: Performed with Oral Contrast and with IV Contrast, patient injected with 100ml mL of Isovue 300. CT DLP: [address] CTDI: mGy Automated exposure control for dose reduction was used. FINDINGS: Diffuse reticular nodular pattern in the left lower lobe and pleural parenchymal scarring right middl e lobe. See the chest CT performed on this date. The gallbladder is normal without distention, wall thickening, pericholecystic fluid or gallstones. There is no biliary ductal dilatation. There is no focal mass or organomegaly involving the liver, pancreas, spleen or adrenal glands. There is no solid renal mass or hydronephrosis and there is homogeneous contrast enhancement of the r enal parenchyma. The caliber the abdominal aorta is normal is no retroperitoneal adenopathy or hemorr leticia. The bowel loops are normal in caliber and there is no evidence of dilatation or obstruction. No infla mmatory changes are identified in the bowel wall or mesentery. There is no free intraperitoneal air or fluid. No pelvic mass, free fluid, abscess or adenopathy. There is a laminectomy defect at the L4-5 level and a stable 10.8 x 7.6 x 5.1 cm thin-walled fluid co llection posterior to the laminectomy defect extending from the epidural space to the subcutaneous so ft tissues in the midline back consistent with a stable seroma IMPRESSION: 1. No acute changes within the abdomen or pelvis. 2. Stable large soft tissue fluid collection posterior to the lamina defect in the midline back at th e L4-5 level as described above. Most likely represents a postoperative seroma. [facility], , 11/18/2024 1:44 PM
== END | disposition home or self-care (01) ==
LOC: RADCTMAIN 10:57
PROVIDERS: ATTEND Family Medicine
DX: N28.89 Other specified disorders of kidney and ureter (principal); J98.4 Other disorders of lung; R91.1 Solitary pulmonary nodule
CPT/HCPCS: 82565; 84520; 74177; Q9967

== ENCOUNTER → 2024-11-18 | Outpatient (CLI) | payer OTHER ==
--- NOTE | 2024-11-18 13:34 | CTL ---
EXAMINATION TYPE: CT Low Dose Lung DATE OF EXAM ORDERED: 11/18/2024 COMPARISON: 11/14/2023 CLINICAL INDICATION: Male, 54 years old with history of Z12.2 LUNG CA SCREEN F17.210 CURRENT SMOKER; PHH, Lung cancer screening current smoker, Lung cancer screening, History of Smoking/tobacco use. TECHNIQUE: Low dose computed tomography scan was performed through the chest at 1 mm thick sections a nd reconstructed images in multiple planes at 1 mm and [address] DLP: [address] CTDI: 2.03 mGy Automated exposure control for dose reduction was used. CT DIAGNOSTIC QUALITY: Satisfactory FINDINGS: There are mild emphysematous changes. There is been significant interval increase in the diffuse reticular nodular pattern in the left lung , "tree-in-bud pattern". The 9 mm dominant nodule in the left lower lobe is stable.. The mild pleural parenchymal density in the right lower lobe medially is stable. There is no new or s uspicious dominant lung mass or nodule. There is no pleural effusion or pneumothorax. The great vessels and heart are normal in size. There is no mediastinal, hilar or axillary adenopathy. Limited scanning through the upper abdomen reveals no gross abnormality. There are no focal osseous lesions. IMPRESSION: 1. Lung RADS category 0. Diffuse and increasing "tree-in-bud" reticular-nodular pattern in the left l sami. The finding is nonspecific and could be chronic or acute in nature. Continued short-term follow- up is recommended with repeat CT thorax in 3 months. 2. Stable dominant 9 mm nodule in the left lower lobe and stable pleural parenchymal scarring in the right lower lobe.. 3. No lung consolidation or adenopathy. [facility], , 11/18/2024 1:31 PM
== END | disposition home or self-care (01) ==
LOC: RADCTMAIN 11:00
PROVIDERS: ATTEND Internal Medicine
DX: Z12.2 Encounter for screening for malignant neoplasm of respiratory organs (principal); J98.4 Other disorders of lung; R91.1 Solitary pulmonary nodule; F17.210 Nicotine dependence, cigarettes, uncomplicated
CPT/HCPCS: 71271

== ENCOUNTER 2025-02-05 07:23 | Inpatient (IN) | payer OTHER ==
--- NOTE | 2025-02-05 07:39 | ED ---
General Adult HPI - General Stated complaint: GOKUL Time Seen by Provider: 02/05/25 07:27 Source: patient, EMS, RN notes reviewed Mode of arrival: EMS Limitations: no limitations - History of Present Illness Initial comments: Patient is a 54-year-old male presented to the emergency department with concerns with difficulty in breathing. Symptoms have been occurring for a week or 2. Patient did have temperature at 1 point of 99.1. Patient has cough with productive brown now clear sputum. Patient does have history of COPD. Patient has been coughing a significant amount. No leg pain, calf pain or leg swelling. - Related Data Home Medications Medication Instructions Recorded Confirmed ALPRAZolam [Xanax] 1 mg PO BID 09/21/24 09/21/24 Albuterol Inhaler [Ventolin Hfa 1 puff PO DAILY PRN 09/21/24 09/21/24 Inhaler] Dulaglutide [Trulicity] 4.5 mg SQ WEEKLY 09/21/24 09/21/24 Fluticasone/Umeclidin/Vilanter 1 puff INHALATION DAILY 09/21/24 09/21/24 [Trelegy Ellipta 200-62.5-25] Methylphenidate HCl [Ritalin] 20 mg PO TID 09/21/24 09/21/24 Orphenadrine [Norflex] 100 mg PO BID 09/21/24 09/21/24 Pregabalin [Lyrica] 300 mg PO TID 09/21/24 09/21/24 traZODone HCL 150 mg PO HS 09/21/24 09/21/24 Previous Rx's Medication Instructions Recorded predniSONE [Deltasone] 40 mg PO DAILY 5 Days #10 tab 01/21/23 Allergies Allergy/AdvReac Type Severity Reaction Status Date / Time No Known Allergies Allergy Verified 02/05/25 07:38 Review of Systems ROS Statement: Those systems with pertinent positive or pertinent negative responses have been documented in the HPI. ROS Other: All systems not noted in ROS Statement are negative. 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 History of Any Multi-Drug Resistant Organisms: None Reported Past Surgical History: Back Surgery Additional Past Surgical History / Comment(s): wire mesh in head on R side, neck fusion, lip skin cancer removed, Past Anesthesia/Blood Transfusion Reactions: No Reported Reaction Additional Past Anesthesia/Blood Transfusion Reaction / Comment(s): no blood transfusion Smoking Status: Current every day smoker - Past Family History Father Family Medical History: COPD, Myocardial Infarction ([place]) Mother Family Medical History: No Reported History General Exam Limitations: no limitations General appearance: alert, in no apparent distress Head exam: Present: normocephalic Eye exam: Present: normal appearance Neck exam: Present: normal inspection Respiratory exam: Present: rhonchi, decreased breath sounds Cardiovascular Exam: Present: regular rate, normal rhythm GI/Abdominal exam: Present: soft. Absent: tenderness Extremities exam: Present: normal inspection. Absent: pedal edema, calf tenderness Neurological exam: Present: alert Psychiatric exam: Present: normal affect, normal mood Skin exam: Present: normal color Course Vital Signs 02/05/25 02/05/25 02/05/25 07:28 08:03 08:15 Temperature 97.4 F L Pulse Rate 92 89 Respiratory 18 18 Rate Blood Pressure 106/77 119/64 O2 Sat by Pulse 94 L 92 L Oximetry 02/05/25 02/05/25 08:23 08:33 Temperature Pulse Rate 92 92 Respiratory Rate Blood Pressure O2 Sat by Pulse Oximetry EKG Findings - EKG Results: EKG: interpreted by ERMD, sinus rhythm, normal axis, normal QRS, normal ST/T Medical Decision Making - Medical Decision Making Was pt. sent in by a medical professional or institution (, PA, STRETCHER LEVELER OPERATOR HELPER, urgent care, hospital, or chcf...) When possible be specific @ -No Did you speak to anyone other than the patient for history (EMS, parent, family, police, friend...)? What history was obtained from this source @ -No Did you review nursing and triage notes (agree or disagree)? Why? @ -I reviewed and agree with nursing and triage notes Were old charts reviewed (outside hosp., previous admission, EMS record, old EKG, old radiological studies, urgent care reports/EKG's, chcf records)? Report findings @ -No old charts were reviewed Differential Diagnosis (chest pain, altered mental status, abdominal pain women, abdominal pain men, vaginal bleeding, weakness, fever, dyspnea, syncope, headache, dizziness, GI bleed, back pain, seizure, CVA, palpatations, mental health, musculoskeletal)? @ -Differential Dyspnea: Coronary syndrome, arrhythmia, tamponade, asthma, COPD, pulmonary embolism, pneumonia, pneumothorax, pulmonary effusion, anaphylaxis, diabetic ketoacidosis, flailed chest, pulmonary contusion, diaphragmatic rupture, anemia, neuromuscular, this is not meant to be an all-inclusive list. EKG interpreted by me (3pts min.). @ -As above X-rays interpreted by me (1pt min.). @ -Chest x-ray shows multifocal infiltrates CT interpreted by me (1pt min.). @ -None done U/S interpreted by me (1pt. min.). @ -None done What testing was considered but not performed or refused? (CT, X-rays, U/S, labs)? Why? @ -None What meds were considered but not given or refused? Why? @ -None Did you discuss the management of the patient with other professionals (professionals i.e. DrRamila, PA, STRETCHER LEVELER OPERATOR HELPER, lab, RT, psych nurse, social welfare research worker, roller coaster engineer, teacher, space operations officer, correctional casework specialist)? Give summary @ -[facility], Dr. Gold to admit covering for Dr. Craias Was smoking cessation discussed for >3mins.? @ -No Was critical care preformed (if so, how long)? @ -No Were there social determinants of health that impacted care today? How? (Homelessness, low income, unemployed, alcoholism, drug addiction, transportation, low edu. Level, literacy, decrease access to med. care, chcf, rehab)? @ -No Was there de-escalation of care discussed even if they declined (Discuss DNR or withdrawal of care, Hospice)? DNR status @ -No What co-morbidities impacted this encounter? (DM, HTN, Smoking, COPD, CAD, Cancer, CVA, ARF, Chemo, Hep., AIDS, mental health diagnosis, sleep apnea, morbid obesity)? @ -COPD history Was patient admitted / discharged? Hospital course, mention meds given and route, prescriptions, significant lab abnormalities, going to OR and other pertinent info. @ -Patient presents with cough and dyspnea, history of COPD. Chest x-ray concerning for multifocal pneumonia. Patient will be admitted with IV antibiotics. Patient reevaluated and updated. Admission orders written. Undiagnosed new problem with uncertain prognosis? @ -No Drug Therapy requiring intensive monitoring for toxicity (Heparin, Nitro, Insulin, Cardizem)? @ -No Were any procedures done? @ -No Diagnosis/symptom? @ -Multifocal pneumonia Acute, or Chronic, or Acute on Chronic? @ -Acute Uncomplicated (without systemic symptoms) or Complicated (systemic symptoms)? @ -Default Side effects of treatment? @ -No Exacerbation, Progression, or Severe Exacerbation? @ -No Poses a threat to life or bodily function? How? (Chest pain, [place], [place], pneumonia, PE, COPD, DKA, ARF, appy, cholecystitis, CVA, Diverticulitis, Homicidal, Suicidal, threat to staff... and all critical care pts) @ -Threat to pulmonary function - Lab Data Result diagrams: 02/05/25 07:59 02/05/25 09:00 Lab Results 02/05/25 02/05/25 02/05/25 Range/Units 07:59 07:59 07:59 WBC 9.54 (4.50-10.00) 10*3/uL RBC 4.57 (4.40-5.60) 10*6/uL Hgb 14.6 (13.0-17.0) g/dL Hct 42.6 (39.6-50.0) % MCV 93.2 (80.0-97.0) fL MCH 31.9 (27.0-32.0) pg MCHC 34.3 (32.0-37.0) g/dL Plt Count 314 (140-440) 10*3/uL MPV 10.4 (9.5-12.2) fL Immature Gran % (Auto) 4.1 % Neutrophils % 67.6 % Lymphocytes % 17.3 % Monocytes % 6.9 % Eosinophils % 2.9 % Basophils % 1.2 % Immature Gran # 0.39 H (0.00-0.04) 10*3/uL Neutrophils # 6.45 (1.80-7.70) 10*3/uL Lymphocytes # 1.65 (0.90-5.00) 10*3/uL Monocytes # 0.66 (0.20-1.00) 10*3/uL Eosinophils # 0.28 (0.04-0.35) 10*3/uL Basophils # 0.11 H (0.00-0.10) 10*3/uL PT 10.6 (10.0-12.5) sec INR 0.9 (<1.2) APTT 23.3 (22.0-30.0) sec Sodium (137-145) mmol/L Potassium (3.5-5.1) mmol/L Chloride (98-107) mmol/L Carbon Dioxide (22-30) mmol/L Anion Gap mmol/L BUN (9-20) mg/dL Creatinine (0.66-1.25) mg/dL Est GFR (CKD-EPI)AfAm (>60 ml/min/1.73 sqM) Est GFR (CKD-EPI)NonAf (>60 ml/min/1.73 sqM) Glucose (74-99) mg/dL Plasma Lactic Acid Hung 0.8 (0.7-2.0) mmol/L Calcium (8.4-10.2) mg/dL Magnesium (1.6-2.3) mg/dL Total Bilirubin (0.2-1.3) mg/dL AST (17-59) U/L ALT (4-49) U/L Alkaline Phosphatase (38-126) U/L Troponin I (0.000-0.034) ng/mL Total Protein (6.3-8.2) g/dL Albumin (3.5-5.0) g/dL Influenza Type A (PCR) (Not Detectd) Influenza Type B (PCR) (Not Detectd) RSV (PCR) (Not Detectd) SARS-CoV-2 (PCR) (Not Detectd) 02/05/25 02/05/25 02/05/25 Range/Units 07:59 09:00 09:00 WBC (4.50-10.00) 10*3/uL RBC (4.40-5.60) 10*6/uL Hgb (13.0-17.0) g/dL Hct (39.6-50.0) % MCV (80.0-97.0) fL MCH (27.0-32.0) pg MCHC (32.0-37.0) g/dL Plt Count (140-440) 10*3/uL MPV (9.5-12.2) fL Immature Gran % (Auto) % Neutrophils % % Lymphocytes % % Monocytes % % Eosinophils % % Basophils % % Immature Gran # (0.00-0.04) 10*3/uL Neutrophils # (1.80-7.70) 10*3/uL Lymphocytes # (0.90-5.00) 10*3/uL Monocytes # (0.20-1.00) 10*3/uL Eosinophils # (0.04-0.35) 10*3/uL Basophils # (0.00-0.10) 10*3/uL PT (10.0-12.5) sec INR (<1.2) APTT (22.0-30.0) sec Sodium 140 (137-145) mmol/L Potassium 3.9 (3.5-5.1) mmol/L Chloride 108 H (98-107) mmol/L Carbon Dioxide 20 L (22-30) mmol/L Anion Gap 12 mmol/L BUN 12 (9-20) mg/dL Creatinine 0.92 (0.66-1.25) mg/dL Est GFR (CKD-EPI)AfAm >90 (>60 ml/min/1.73 sqM) Est GFR (CKD-EPI)NonAf >90 (>60 ml/min/1.73 sqM) Glucose 109 H (74-99) mg/dL Plasma Lactic Acid Hung (0.7-2.0) mmol/L Calcium 9.3 (8.4-10.2) mg/dL Magnesium 1.9 (1.6-2.3) mg/dL Total Bilirubin 0.6 (0.2-1.3) mg/dL AST 25 (17-59) U/L ALT 32 (4-49) U/L Alkaline Phosphatase 111 (38-126) U/L Troponin I <0.012 (0.000-0.034) ng/mL Total Protein 6.2 L (6.3-8.2) g/dL Albumin 3.6 (3.5-5.0) g/dL Influenza Type A (PCR) Not Detected (Not Detectd) Influenza Type B (PCR) Not Detected (Not Detectd) RSV (PCR) Not Detected (Not Detectd) SARS-CoV-2 (PCR) Not Detected (Not Detectd) Disposition Clinical Impression: Pneumonia Disposition: ADMITTED IP TO THIS HOSP Is patient prescribed a controlled substance at d/c from ED?: No Time of Disposition: 10:03
[2025-02-05] MEDS: methylPREDNISolone SOD SUCCI 125 MG/2 ML VIAL IV STA (07:50)
[2025-02-05 08:06] LABS: Basophils # (A) 0.11 10*3/uL (0.00-0.10); Basophils % (A) 1.2 %; Eosinophils # (A) 0.28 10*3/uL (0.04-0.35); Eosinophils % (A) 2.9 %; HCT 42.6 % (39.6-50.0); HGB 14.6 g/dL (13.0-17.0); Lymphocytes # (A) 1.65 10*3/uL (0.90-5.00); Lymphocytes % (A) 17.3 %; MCH 31.9 pg (27.0-32.0); MCHC 34.3 g/dL (32.0-37.0); MCV 93.2 fL (80.0-97.0); Mean Platelet Volume 10.4 fL (9.5-12.2); Monocytes # (A) 0.66 10*3/uL (0.20-1.00); Monocytes % (A) 6.9 %; Neutrophils # (A) 6.45 10*3/uL (1.80-7.70); Neutrophils % (A) 67.6 %; Platelet Count 314 10*3/uL (140-440); RBC 4.57 10*6/uL (4.40-5.60); WBC 9.54 10*3/uL (4.50-10.00)
[2025-02-05] MEDS: IPRATROPIUM-ALBUTEROL 3 ML NEB INHALATION STA (08:21)
--- NOTE | 2025-02-05 08:30 | XR ---
EXAMINATION TYPE: XR chest 2V DATE OF EXAM: 02/05/2025 8:07 AM COMPARISON: Chest radiographs from 04/17/2024 CLINICAL INDICATION: Male, 54 years old with history of difficulty breathing; [facility] TECHNIQUE: XR chest 2V Frontal and lateral views of the chest. FINDINGS: Lungs/Pleura: There is no evidence of pleural effusion, focal consolidation, or pneumothorax. Pulmonary vascularity: Unremarkable. Heart/mediastinum: Cardiomediastinal silhouette is unremarkable. Musculoskeletal: No acute osseous pathology. IMPRESSION: Multifocal airspace opacities concerning for pneumonia. [facility], , 02/05/2025 8:27 AM
[2025-02-05 08:37] LABS: INR 0.9 (<1.2); Partial Thromboplastin Time 23.3 sec (22.0-30.0); Prothrombin Time 10.6 sec (10.0-12.5)
[2025-02-05 08:43] LABS: Influenza A Not Detected (Not Detectd); Influenza B Not Detected (Not Detectd); RSV Not Detected (Not Detectd)
[2025-02-05] MEDS ORDERED: IPRATROPIUM-ALBUTEROL 3 ML NEB INHALATION PRN (09:01)
[2025-02-05] MEDS ORDERED: PNEUMONIA PROTOCOL UTILIZED 1 EACH MISC PO PRN (09:01)
[2025-02-05 09:39] LABS: ALT 32 U/L (4-49); AST 25 U/L (17-59); African American GFR (CKD) >90 (>60 ml/min/1.73 sqM); Albumin 3.6 g/dL (3.5-5.0); Alkaline Phosphatase 111 U/L (38-126); Anion Gap 12 mmol/L; Blood Urea Nitrogen 12 mg/dL (9-20); Calcium 9.3 mg/dL (8.4-10.2); Carbon Dioxide 20 mmol/L (22-30); Chloride 108 mmol/L (98-107); Glucose 109 mg/dL (74-99); Magnesium 1.9 mg/dL (1.6-2.3); Non-African American GFR(CKD) >90 (>60 ml/min/1.73 sqM); Potassium 3.9 mmol/L (3.5-5.1); Sodium 140 mmol/L (137-145); Total Bilirubin 0.6 mg/dL (0.2-1.3); Total Protein 6.2 g/dL (6.3-8.2)
[2025-02-05] MEDS: AZITHROMYCIN 500 MG in SODIUM CHLORIDE 0.9% 250 ML IVPB STA (10:12)
[2025-02-05] MEDS: HYDROcodone/APAP 5-325MG 1 EACH TAB PO STA (10:12)
[2025-02-05] MEDS: IPRATROPIUM-ALBUTEROL 3 ML NEB INHALATION SCH (11:27)
--- NOTE | 2025-02-05 12:42 | P.CNPUL ---
History of Present Illness Consult date: 02/05/25 Requesting physician: Ted Gama Reason for consult: dyspnea, cough, COPD Chief complaint: Shortness of breath, cough, congestion History of present illness: This is a 54-year-old male patient with a known history of chronic obstructive pulmonary disease, chronic and ongoing tobacco dependence, diabetes mellitus. He presented here to the emergency room early this morning with a 2-week history of increasing shortness of breath, cough and congestion. He was treated with steroids and antibiotics without much improvement. Chest x-ray reveals multifocal airspace disease. White count 9.5. Hemoglobin 14.6. Platelets 314. Sodium 140. Potassium 3.9. Bicarb 20. BUN 12. Creatinine 0.92. Glucose 109. Viral screen negative for influenza A/B, RSV, COVID. He is seen today in consultation in the emergency department. He is currently laying flat on the stretcher. Awake and alert in no acute distress. Maintaining O2 saturations in the 90s on room air. He does have a loose productive cough of yellowish clear sputum. Review of Systems REVIEW OF SYSTEMS: CONSTITUTIONAL: Denies any recent significant weight loss or weight gain. EYES: Denies change in vision. EARS, NOSE, MOUTH, THROAT: Denies headaches, denies sore throat. CARDIOVASCULAR: Denies chest pain, palpitations or syncopal episodes. RESPIRATORY: Positive for shortness of breath, cough, congestion no hemoptysis. GASTROINTESTINAL: Denies change in appetite, denies abdominal pain GENITOURINARY: Denies hematuria, denies infections. MUSKULOSKELETAL: Denies pain, denies swelling. INTEGUMENTARY: Denies rash, denies eczema. NEUROLOGICAL: Denies recent memory loss, no recent seizure activity. PSYCHIATRIC: Denies anxiety, denies depression. HEMATOLOGIC/LYMPHATIC: Denies anemia, denies enlarged lymph nodes. 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 History of Any Multi-Drug Resistant Organisms: None Reported Past Surgical History: Back Surgery Additional Past Surgical History / Comment(s): wire mesh in head on R side, neck fusion, lip skin cancer removed, Past Anesthesia/Blood Transfusion Reactions: No Reported Reaction Additional Past Anesthesia/Blood Transfusion Reaction / Comment(s): no blood transfusion Smoking Status: Current every day smoker - Past Family History Father Family Medical History: COPD, Myocardial Infarction ([place]) Mother Family Medical History: No Reported History Medications and Allergies Home Medications Medication Instructions Recorded Confirmed Type ALPRAZolam [Xanax] 1 mg PO BID 09/21/24 02/05/25 History Albuterol Inhaler [Ventolin Hfa 2 puff INHALATION RT-Q4H PRN 09/21/24 02/05/25 History Inhaler] Dulaglutide [Trulicity] 4.5 mg SQ MO 09/21/24 02/05/25 History Fluticasone/Umeclidin/Vilanter 1 puff INHALATION RT-DAILY 09/21/24 02/05/25 History [Trelegy Ellipta 200-62.5-25] Methylphenidate HCl [Ritalin] 20 mg PO TID 09/21/24 02/05/25 History Orphenadrine [Norflex] 100 mg PO BID 09/21/24 02/05/25 History Pregabalin [Lyrica] 300 mg PO BID 09/21/24 02/05/25 History traZODone HCL 150 mg PO HS 09/21/24 02/05/25 History Amoxicillin 500 mg PO TID 02/05/25 02/05/25 History Atorvastatin [Lipitor] 40 mg PO HS 02/05/25 02/05/25 History Ibuprofen [Motrin] 800 mg PO TID PRN 02/05/25 02/05/25 History Omeprazole 40 mg PO DAILY 02/05/25 02/05/25 History polyethylene glycoL 3350 [Miralax] 17 gm PO DAILY 02/05/25 02/05/25 History Allergies Allergy/AdvReac Type Severity Reaction Status Date / Time No Known Allergies Allergy Verified 02/05/25 11:09 Physical Exam Vitals: Vital Signs Temp Pulse Resp BP Pulse Ox 02/05/25 11:40 93 02/05/25 11:28 94 02/05/25 10:16 89 16 109/68 93 L 02/05/25 08:33 92 02/05/25 08:23 92 02/05/25 08:15 89 119/64 92 L 02/05/25 08:03 18 02/05/25 07:28 97.4 F L 92 18 106/77 94 L Intake and Output 0602/05/25 02/05/25 22:59 06:59 14:59 Other: Weight 86.183 kg GENERAL EXAM: Alert, 54-year-old male, on room air oxygen, fair comfortable in no apparent distress. HEAD: Normocephalic. EYES: Normal reaction of pupils, equal size. NOSE: Clear with pink turbinates. THROAT: No erythema or exudates. NECK: No masses, no JVD. CHEST: No chest wall deformity. LUNGS: Equal air entry with bilateral wheezing, few scattered rhonchi. CVS: S1 and S2 normal with no audible murmur, regular rhythm. ABDOMEN: No hepatosplenomegaly, normal bowel sounds, no guarding or rigidity. SPINE: No scoliosis or deformity SKIN: No rashes CENTRAL NERVOUS SYSTEM: No focal deficits, tone is normal in all 4 extremities. EXTREMITIES: There is no peripheral edema. No clubbing, no cyanosis. Peripheral pulses are intact. Results - Laboratory Findings CBC and BMP: 02/05/25 07:59 02/05/25 09:00 PT/INR, D-dimer PT 10.6 sec (10.0-12.5) 02/05/25 07:59 INR 0.9 (<1.2) 02/05/25 07:59 Abnormal lab findings: Abnormal Labs 02/05/25 02/05/25 07:59 09:00 Immature Gran # 0.39 H Basophils # 0.11 H Chloride 108 H Carbon Dioxide 20 L Glucose 109 H Total Protein 6.2 L - Diagnostic Findings Chest x-ray: image reviewed Assessment and Plan Assessment: Acute exacerbation of chronic obstructive pulmonary disease and possible underlying community-acquired pneumonia. Procalcitonin pending. Viral screen negative for influenza A/B, RSV, COVID Chronic and ongoing tobacco dependence Chronic obstructive pulmonary disease maintained on Trelegy History of anxiety/depression Pulmonary nodules, being followed in the outpatient setting, most recent CT of the chest was October 2024 Plan: The patient was seen and evaluated Chest x-ray, labs and medications reviewed Currently stable and on room air Initiate Solu-Medrol 60 mg every 6 hours Initiate Pulmicort and Perforomist inhalations Initiate DuoNeb inhalations Continue ceftriaxone and azithromycin for now Check a procalcitonin Resume home medications We will continue to follow and make further recommendations based on his clinical status I have personally seen and examined the patient, performed the documentation and the assessment and plan as written. Number of minutes spent on the visit: 20. Dictation was produced using servtag dictation software. Please excuse any grammatical, word or spelling errors. Time with Patient: Greater than 30
[2025-02-05] MEDS: methylPREDNISolone SOD SUCCI 125 MG/2 ML VIAL IV SCH (14:21)
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
[2025-02-05 16:37] LABS: Glucose,Whole Blood 237 mg/dL (70-110)
[2025-02-05] MEDS: IBUPROFEN 800 MG TAB PO PRN (16:41)
[2025-02-05] MEDS: METHYLPHENIDATE HCL 10 MG TAB PO SCH (17:02)
[2025-02-05] MEDS: INSULIN LISPRO (HumaLOG) 100 UNIT/ML 10 mL VL SQ SCH (17:02)
[2025-02-05] MEDS ORDERED: BENZOCAINE/MENTHOL LOZENG 1 EACH LOZENGE MUCOUS MEM PRN (20:06)
[2025-02-05] MEDS: PREGABALIN 100 MG CAP PO SCH (20:08)
[2025-02-05] MEDS: ATORVASTATIN 40 MG TAB PO SCH (20:08)
[2025-02-05] MEDS: traZODone HCL 100 MG TAB PO SCH (20:08)
[2025-02-05] MEDS: CYCLOBENZAPRINE 10 MG TAB PO SCH (20:08)
[2025-02-05] MEDS: FORMOTEROL FUMARATE 20 MCG/2 ML NEBU INHALATION SCH (20:25)
[2025-02-05] MEDS: BUDESONIDE 1 MG/2 ML NEBU INHALATION SCH (20:25)
[2025-02-05 20:52] LABS: Glucose,Whole Blood 198 mg/dL (70-110)
[2025-02-05] MEDS: guaiFENesin SYRUP 100MG/5ML 200 MG/10 ML CUP PO PRN (21:04)
[2025-02-05] MEDS: ALPRAZolam 0.5 MG TAB PO PRN (21:04)
[2025-02-06 07:06] LABS: Glucose,Whole Blood 162 mg/dL (70-110)
--- NOTE | 2025-02-06 07:33 | XR ---
EXAMINATION TYPE: XR chest 2V DATE OF EXAM: 02/06/2025 6:56 AM COMPARISON: Chest radiograph from one day prior. CLINICAL INDICATION: Male, 54 years old with history of pneumonia; [facility] TECHNIQUE: XR chest 2V Frontal and lateral views of the chest. FINDINGS: Lungs/Pleura: Improved aeration of lungs on today's exam with persistent airspace opacities scattered throughout the lungs. No evidence of pneumothorax or large pleural effusion. Pulmonary vascularity: Unremarkable. Heart/mediastinum: Cardiomediastinal silhouette is unremarkable. Musculoskeletal: No acute osseous pathology. IMPRESSION: Improved aeration of the lungs with persistent multifocal airspace opacities. [facility], , 02/06/2025 7:31 AM
[2025-02-06] MEDS ORDERED: NON FORMULARY DRUG (Fluticasone/Umeclidin/Vilanter [Trelegy Ellipta 200-62.5-25] 1 EACH Bl INHALATION SCH (08:00)
[2025-02-06] MEDS: PANTOPRAZOLE 40 MG TABLET PO SCH (08:28)
[2025-02-06] MEDS: ENOXAPARIN 40 MG/0.4 ML SYRINGE SQ SCH (08:28)
[2025-02-06] MEDS: polyethylene glycoL 3350 17 GM POWD.PACK PO SCH (08:29)
[2025-02-06] MEDS: AZITHROMYCIN 500 MG TAB PO SCH (08:40)
[2025-02-06] MEDS: ACETAMINOPHEN TAB 325 MG TAB PO PRN (08:40)
[2025-02-06 09:24] LABS: HCT 37.7 % (39.6-50.0); HGB 12.3 g/dL (13.0-17.0); MCH 30.1 pg (27.0-32.0); MCHC 32.6 g/dL (32.0-37.0); MCV 92.4 FL (80.0-97.0); Mean Platelet Volume 10.5 FL (9.5-12.2); NRBC Per 100 WBC 0 X 10*3/uL (0.00-0.01); Platelet Count 350 X 10*3/uL (140-440); RBC 4.08 X 10*6/uL (4.40-5.60); RDW 13.3 % (11.5-14.5); WBC 9.34 X 10*3/uL (4.50-10.00)
[2025-02-06 09:28] LABS: BUN/Creat Ratio 19.12 Ratio (12.00-20.00); Blood Urea Nitrogen 15.3 mg/dL (9.0-27.0); Calcium 8.6 mg/dL (8.7-10.3); Chloride 104 mmol/L (96-109); Glucose 201 mg/dL (70-110); Magnesium 1.7 mg/dL (1.5-2.4); Potassium 3.5 mmol/L (3.5-5.5); Sodium 135 mmol/L (135-145)
[2025-02-06] MEDS: TIOTROPIUM 2.5 MCG INHALER INHALATION SCH (09:51)
[2025-02-06 10:40] LABS: Glucose,Whole Blood 193 mg/dL (70-110)
[2025-02-06] MEDS: DOXYCYCLINE 100 MG TABLET PO SCH (11:03)
--- NOTE | 2025-02-06 11:36 | P.PN ---
Subjective Patient 54-year-old male with known history of chronic obstructive pulmonary disease came in with increasing shortness of breath cough and congestion. Patient has significant bilateral rhonchi chest x-ray showed multifocal infiltrates patient does not have any white count was complaining of fevers at home. Patient viral screen is negative for influenza AB, RSV, COVID-19. Patient does not have any history of congestive heart failure. Patient was complaining of cough with sputum production yellowish in color. 02/06/2025 Patient is complaining of pain secondary to coughing and requesting [place] for pain has received his Motrin makes him constipated. Patient also requesting to increase his Xanax dose. Patient has had oxygen saturations improved but still has quite a bit of rhonchi patient is presently on doxycycline and Rocephin at this time for bronchopneumonia. REVIEW OF SYSTEMS: All other systems are negative except those mentioned in the HPI PHYSICAL EXAMINATION: GENERAL: The patient is alert and oriented x3, not in any acute distress. Well developed, well nourished. HEENT: Pupils are round and equally reacting to light. EOMI. No scleral icterus. No conjunctival pallor. Normocephalic, atraumatic. No pharyngeal erythema. No thyromegaly. CARDIOVASCULAR: S1 and S2 present. No murmurs, rubs, or gallops. PULMONARY: Diffuse bilateral rhonchi ABDOMEN: Soft, nontender, nondistended, normoactive bowel sounds. No palpable organomegaly. MUSCULOSKELETAL: No joint swelling or deformity. EXTREMITIES: No cyanosis, clubbing, or pedal edema. NEUROLOGICAL: Gross neurological examination did not reveal any focal deficits. SKIN: No rashes. Assessment and plan -Acute hypoxic and hypercapnic respiratory failure secondary to COPD exacerbation and possibility of bronchopneumonia patient will be continued on Rocephin and doxycycline continue with systemic steroids inhalational treatments - Nicotine use: Counseling was provided - COPD exacerbation - Depression - Pulmonary nodules for which patient is being followed up as an outpatient with serial CTs last one being October 24, 2024 - Hyperlipidemia - Gastroesophageal reflux disease - Type 2 diabetes mellitus his blood sugars are expected to go high because of high-dose systemic steroids patient was started on steroids scale insulin DVT prophylaxis: Lovenox Objective - Vital Signs Vital signs: Vital Signs Temp 97.5 F L 02/06/25 07:52 Pulse 84 02/06/25 10:11 Resp 18 02/06/25 07:52 BP 107/72 02/06/25 07:52 Pulse Ox 99 02/06/25 09:48 FiO2 Intake & Output 02/05/25 02/06/25 02/06/25 18:59 06:59 18:59 Intake Total 1650 Balance 1650 Weight 86.183 kg Intake: Oral 1650 Other: Voiding Method Toilet Toilet # Voids 1 5 # Bowel Movements 1 2 - Labs CBC & Chem 7: 02/06/25 03:18 02/06/25 03:18 Labs: Abnormal Lab Results - Last 24 Hours (Table) 02/05/25 02/05/25 02/06/25 Range/Units 16:36 20:51 03:18 RBC 4.08 L (4.40-5.60) X 10*6/uL Hgb 12.3 L (13.0-17.0) g/dL Hct 37.7 L (39.6-50.0) % Carbon Dioxide (21.6-31.8) mmol/L Anion Gap (4.00-12.00) mmol/L Glucose (70-110) mg/dL POC Glucose (mg/dL) 237 H 198 H (70-110) mg/dL Calcium (8.7-10.3) mg/dL 02/06/25 02/06/25 02/06/25 Range/Units 03:18 07:04 10:36 RBC (4.40-5.60) X 10*6/uL Hgb (13.0-17.0) g/dL Hct (39.6-50.0) % Carbon Dioxide 17.0 L (21.6-31.8) mmol/L Anion Gap 14.00 H (4.00-12.00) mmol/L Glucose 201 H (70-110) mg/dL POC Glucose (mg/dL) 162 H 193 H (70-110) mg/dL Calcium 8.6 L (8.7-10.3) mg/dL Microbiology - Last 24 Hours (Table) 02/05/25 16:34 Gram Stain - Preliminary Sputum
--- NOTE | 2025-02-06 13:42 | P.PN ---
Subjective Progress Note Date: 02/06/25 This is a 54-year-old male patient with a known history of chronic obstructive pulmonary disease, chronic and ongoing tobacco dependence, diabetes mellitus. He presented here to the emergency room early this morning with a 2-week history of increasing shortness of breath, cough and congestion. He was treated with steroids and antibiotics without much improvement. Chest x-ray reveals multifocal airspace disease. White count 9.5. Hemoglobin 14.6. Platelets 314. Sodium 140. Potassium 3.9. Bicarb 20. BUN 12. Creatinine 0.92. Glucose 109. Viral screen negative for influenza A/B, RSV, COVID. He is seen today in consultation in the emergency department. He is currently laying flat on the s tretcher. Awake and alert in no acute distress. Maintaining O2 saturations in the 90s on room air. He does have a loose productive cough of yellowish clear sputum. The patient is seen today February 06, 2025 in follow-up on the regular medical floor. He is currently sitting up at the bedside. Awake and alert in no acute distress. Still with a loose congested cough. Still with dyspnea on exertion. He is maintaining good O2 saturations in the 90s on room air oxygen. His procalcitonin was negative at less than 0.20. He remains on DuoNeb inhalations, Pulmicort and Perforomist inhalations, Solu-Medrol. He states he quit smoking in November 2024. He is currently on Rocephin and azithromycin. Chest x-ray shows improved aeration. Sputum culture pending. White count 9.3. Hemoglobin 12.3. Platelets 350. Sodium 135. Potassium 3.5. Bicarb 17. BUN 15. Creatinine 0.8. Glucose 201. Objective - Vital Signs Vital signs: Vital Signs Temp 97.5 F L 02/06/25 07:52 Pulse 85 02/06/25 13:02 Resp 18 02/06/25 07:52 BP 107/72 02/06/25 07:52 Pulse Ox 99 02/06/25 09:48 FiO2 Intake & Output 02/05/25 02/06/25 02/06/25 18:59 06:59 18:59 Intake Total 1650 Balance 1650 Weight 86.183 kg Intake: Oral 1650 Other: Voiding Method Toilet Toilet # Voids 1 5 # Bowel Movements 1 2 - Exam GENERAL EXAM: Alert, active, 54-year-old male, sitting at the bedside, on room air oxygen, fairly comfortable in no apparent distress. HEAD: Normocephalic. EYES: Normal reaction of pupils, equal size. NOSE: Clear with pink turbinates. THROAT: No erythema or exudates. NECK: No masses, no JVD. CHEST: No chest wall deformity. LUNGS: Equal air entry with bilateral wheeze, few scattered rhonchi. CVS: S1 and S2 normal with no audible murmur, regular rhythm. ABDOMEN: No hepatosplenomegaly, normal bowel sounds, no guarding or rigidity. SPINE: No scoliosis or deformity SKIN: No rashes CENTRAL NERVOUS SYSTEM: No focal deficits, tone is normal in all 4 extremities. EXTREMITIES: There is no peripheral edema. No clubbing, no cyanosis. Peripheral pulses are intact. - Labs CBC & Chem 7: 02/06/25 03:18 02/06/25 03:18 Labs: Abnormal Lab Results - Last 24 Hours (Table) 02/05/25 02/05/25 02/06/25 Range/Units 16:36 20:51 03:18 RBC 4.08 L (4.40-5.60) X 10*6/uL Hgb 12.3 L (13.0-17.0) g/dL Hct 37.7 L (39.6-50.0) % Carbon Dioxide (21.6-31.8) mmol/L Anion Gap (4.00-12.00) mmol/L Glucose (70-110) mg/dL POC Glucose (mg/dL) 237 H 198 H (70-110) mg/dL Calcium (8.7-10.3) mg/dL 02/06/25 02/06/25 02/06/25 Range/Units 03:18 07:04 10:36 RBC (4.40-5.60) X 10*6/uL Hgb (13.0-17.0) g/dL Hct (39.6-50.0) % Carbon Dioxide 17.0 L (21.6-31.8) mmol/L Anion Gap 14.00 H (4.00-12.00) mmol/L Glucose 201 H (70-110) mg/dL POC Glucose (mg/dL) 162 H 193 H (70-110) mg/dL Calcium 8.6 L (8.7-10.3) mg/dL Microbiology - Last 24 Hours (Table) 02/05/25 16:34 Gram Stain - Preliminary Sputum Assessment and Plan Assessment: Acute exacerbation of chronic obstructive pulmonary disease. Procalcitonin negative. Viral screen negative for influenza A/B, RSV, COVID Chronic and ongoing tobacco dependence Chronic obstructive pulmonary disease maintained on Trelegy History of anxiety/depression Pulmonary nodules, being followed in the outpatient setting, most recent CT of the chest was October 2024 Plan: The patient was seen and evaluated Chest x-ray, labs and medications reviewed Chest x-ray showing improved aeration Currently stable and on room air Continue Solu-Medrol 60 mg every 6 hours Continue Pulmicort and Perforomist inhalations Continue DuoNeb inhalations Procalcitonin negative Discontinue ceftriaxone and azithromycin Will treat empirically with doxycycline We will continue to follow I have personally seen and examined the patient, performed the documentation and the assessment and plan as written. Number of minutes spent on the visit: 10. Dictation was produced using [employer] dictation software. Please excuse any grammatical, word or spelling errors.
[2025-02-06 14:57] VITALS: RESP 17
[2025-02-06 16:56] LABS: Glucose,Whole Blood 234 mg/dL (70-110)
[2025-02-06] MEDS: methylPREDNISolone SOD SUCCI 40 MG/ML 1 ML VIAL IV SCH (17:45)
[2025-02-06 21:13] LABS: Glucose,Whole Blood 282 mg/dL (70-110)
[2025-02-06] MEDS: ALPRAZolam 1 MG TAB PO PRN (21:28)
[2025-02-07 06:32] LABS: Glucose,Whole Blood 219 mg/dL (70-110)
[2025-02-07 08:01] VITALS: BP 120/70; TEMP 98.1
[2025-02-07 09:23] VITALS: PULSE 90
[2025-02-07] MEDS: DULAGLUTIDE 4.5 MG/0.5 ML SQ SCH (10:57)
[2025-02-07 11:44] LABS: Glucose,Whole Blood 259 mg/dL (70-110)
--- NOTE | 2025-02-07 16:16 | P.PN ---
Subjective Progress Note Date: 02/07/25 This is a 54-year-old male patient with a known history of chronic obstructive pulmonary disease, chronic and ongoing tobacco dependence, diabetes mellitus. He presented here to the emergency room early this morning with a 2-week history of increasing shortness of breath, cough and congestion. He was treated with steroids and antibiotics without much improvement. Chest x-ray reveals multifocal airspace disease. White count 9.5. Hemoglobin 14.6. Platelets 314. Sodium 140. Potassium 3.9. Bicarb 20. BUN 12. Creatinine 0.92. Glucose 109. Viral screen negative for influenza A/B, RSV, COVID. He is seen today in consultation in the emergency department. He is currently laying flat on the s tretcher. Awake and alert in no acute distress. Maintaining O2 saturations in the 90s on room air. He does have a loose productive cough of yellowish clear sputum. The patient is seen today February 06, 2025 in follow-up on the regular medical floor. He is currently sitting up at the bedside. Awake and alert in no acute distress. Still with a loose congested cough. Still with dyspnea on exertion. He is maintaining good O2 saturations in the 90s on room air oxygen. His procalcitonin was negative at less than 0.20. He remains on DuoNeb inhalations, Pulmicort and Perforomist inhalations, Solu-Medrol. He states he quit smoking in November 2024. He is currently on Rocephin and azithromycin. Chest x-ray shows improved aeration. Sputum culture pending. White count 9.3. Hemoglobin 12.3. Platelets 350. Sodium 135. Potassium 3.5. Bicarb 17. BUN 15. Creatinine 0.8. Glucose 201. The patient is seen today February 07, 2025 in follow-up on the regular medical floor. He is awake and alert in no acute distress. Breathing easier today compared to yesterday. He is anxious to go home. He is maintaining good O2 saturation in the mid 90s on room air oxygen. Has been afebrile. Hemody namically stable. Blood culture revealed no growth. Sputum culture revealed no growth. Glucose 259. He remains on DuoNeb inhalations, Pulmicort and Perforomist inhalations, Solu-Medrol. Lovenox for DVT prophylaxis. Objective - Vital Signs Vital signs: Vital Signs Temp 98.1 F 06/16/25 07:13 Pulse 90 02/07/25 09:23 Resp 17 02/07/25 09:30 BP 120/70 02/07/25 07:13 Pulse Ox 95 02/07/25 07:13 FiO2 Intake & Output 02/06/25 02/07/25 02/07/25 18:59 06:59 18:59 Intake Total 240 Balance 240 Intake: Oral 240 Other: Voiding Method Toilet Toilet # Voids 3 - Exam GENERAL EXAM: Alert, pleasant 54-year-old male, on room air oxygen, comfortable in no apparent distress. HEAD: Normocephalic. EYES: Normal reaction of pupils, equal size. NOSE: Clear with pink turbinates. THROAT: No erythema or exudates. NECK: No masses, no JVD. CHEST: No chest wall deformity. LUNGS: Equal air entry with bilateral wheeze, few scattered rhonchi. CVS: S1 and S2 normal with no audible murmur, regular rhythm. ABDOMEN: No hepatosplenomegaly, normal bowel sounds, no guarding or rigidity. SPINE: No scoliosis or deformity SKIN: No rashes CENTRAL NERVOUS SYSTEM: No focal deficits, tone is normal in all 4 extremities. EXTREMITIES: There is no peripheral edema. No clubbing, no cyanosis. Peripheral pulses are intact. - Labs CBC & Chem 7: 02/06/25 03:18 02/06/25 03:18 Labs: Abnormal Lab Results - Last 24 Hours (Table) 02/06/25 02/06/25 02/07/25 Range/Units 16:53 21:12 06:30 POC Glucose (mg/dL) 234 H 282 H 219 H (70-110) mg/dL 02/07/25 Range/Units 11:42 POC Glucose (mg/dL) 259 H (70-110) mg/dL Microbiology - Last 24 Hours (Table) 02/05/25 16:34 Gram Stain - Preliminary Sputum Sputum Culture - Preliminary 02/05/25 07:55 Blood Culture - Preliminary Blood Assessment and Plan Assessment: Acute exacerbation of chronic obstructive pulmonary disease. Procalcitonin negative. Viral screen negative for influenza A/B, RSV, COVID Chronic and ongoing tobacco dependence Chronic obstructive pulmonary disease maintained on Trelegy History of anxiety/depression Pulmonary nodules, being followed in the outpatient setting, most recent CT of the chest was October 2024 Plan: The patient was seen and evaluated Labs and medications reviewed Currently stable and on room air He is anxious to go home Discontinue Solu-Medrol Initiated a prednisone taper Patient prefers Pulmicort and Perforomist inhalations Continue his home nebulized treatments Educated regarding smoking cessation Follow-up in our office in 1 week I have personally seen and examined the patient, performed the documentation and the assessment and plan as written. Number of minutes spent on the visit: 10. Dictation was produced using [employer] dictation software. Please excuse any grammatical, word or spelling errors.
[2025-02-07] MEDS ORDERED: SYMBICORT 160-4.5 MCG INHALER INHALATION SCH (20:00)
[2025-02-08] MEDS ORDERED: predniSONE 20 MG TAB PO SCH (09:00)
== END 2025-02-07 12:34 | disposition home or self-care (01) | DRG 139 ==
LOC: EC 07:23 → 6NMEDSUR 10:04 → OBSVTOIN 10:05 → 4SSUR 12:50
PROVIDERS: ADMIT Internal Medicine; ATTEND Internal Medicine
DX: J18.0 Bronchopneumonia, unspecified organism (principal); J44.0 Chronic obstructive pulmonary disease with (acute) lower respiratory infection; J44.1 Chronic obstructive pulmonary disease with (acute) exacerbation; M19.90 Unspecified osteoarthritis, unspecified site; J96.01 Acute respiratory failure with hypoxia; E11.40 Type 2 diabetes mellitus with diabetic neuropathy, unspecified; J96.02 Acute respiratory failure with hypercapnia; R91.8 Other nonspecific abnormal finding of lung field; K21.9 Gastro-esophageal reflux disease without esophagitis; F17.200 Nicotine dependence, unspecified, uncomplicated; E78.5 Hyperlipidemia, unspecified; F32.A Depression, unspecified; Z79.85 Long-term (current) use of injectable non-insulin antidiabetic drugs; Z79.899 Other long term (current) drug therapy; Z85.828 Personal history of other malignant neoplasm of skin; Z98.1 Arthrodesis status; Z11.52 Encounter for screening for COVID-19
CPT/HCPCS: 36415; 71046; 80048; 80053; 83605; 83735; 84145; 84484; 85025; 85027; 85610; 85730; 87040; 87070; 87205; 87449; 87636; 93005; 94640; 94760; 96365; 96366; 96368; 96375; 96376; 99285